=== PATIENT | female | born 1950 | race African-American/Black ===

== ENCOUNTER 2019-11-29 18:06 | Emergency (ER) | payer MEDICARE, SELFPAY ==
--- NOTE | ~2019-11-29 | XR_ITS ---
EXAMINATION: XR chest 2V DATE: 11/29/2019 19:01 INDICATION: Palpitation and feeling flushed. TECHNIQUE: PA and lateral views of the chest were obtained. COMPARISON: Chest radiograph dated 12/06/09 FINDINGS: The lungs remain clear with no focal airspace opacities, pulmonary edema, pleural effusion or pneumot horax. The cardiomediastinal silhouette is normal. Visualized bones and soft tissues are unremarkable . IMPRESSION: 1. No acute cardiopulmonary disease. Reviewed, dictated and finalized at location A. 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
[2019-11-29 18:07] VITALS: BP 152/73; PULSE 94; RESP 16; TEMP 36.4; O2SAT 98
--- NOTE | 2019-11-29 18:12 | ECG_ITS ---
Measurements Intervals [place] Rate: 94 P: 63 TN: 142 QRS: 59 QRSD: 89 T: 58 QT: 348 QTc: 436 Interpretive Statements SINUS RHYTHM BORDERLINE ST-T WAVE ABNORMALITY- DIFFUSE LEADS BASELINE WANDER- I, II, III, AVL, AVF BORDERLINE ECG Electronically Signed On 11-29-2019 19:49:27 SPECIMEN PREPARATION ASSISTANT by Chava Castorena D.O.
[2019-11-29 18:13] VITALS: BP 152/73; PULSE 92; PULSE 93; RESP 19; O2SAT 100
--- NOTE | 2019-11-29 18:17 | ED.ARRPALP ---
HPI - Arrhythmia/Palpitations General Chief Complaint: Arrhythmia/Palpitations Stated Complaint: RAPID HR Time Seen by Provider: 11/29/19 18:08 Source: patient and RN notes reviewed Mode of arrival: EMS Limitations: no limitations History of Present Illness HPI narrative: Pt is a 69 y/o female who presents to the ED with c/o heart palpitations starting this evening. She notes that she was diagnosed with a mild [place] approximately 6 months ago at [facility]. Pt states that she then had an episode of lightheadedness and increased HR while at [employer] several weeks ago. She notes that she was evaluated for these symptoms at [facility], and states that she was admitted for several days due to a mildly elevated troponin. Pt notes that her palpitations resolved after performing a vagal maneuver. She states that she was discharged home with a heart monitor in place. 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 She states that her heart then began racing as she tried cooling down with a cold towel. Pt notes that her whole body felt like it was shaking. According to EMS, the pt was in SVT with a HR of 167 while in route to the ED. They note that her HR decreased back to normal after administering a total of 12 mg of Adenosine. Pt denies any CP, lightheadedness, or diaphoresis currently. complaint: heart racing Onset (ago): hour(s) (1) Time: 17:15 Duration: now resolved Severity: similar to previous episodes Context: other (while making dinner) Arrhythmia history: SVT Associated symptoms: other (lightheadedness (resolved); shakiness (resolved)) Treatments prior to arrival: adenosine Related Data Allergies Allergy/AdvReac Type Severity Reaction Status Date / Time No Known Allergies Allergy Mild Verified 12/09/09 10:59 Review of Systems Review of Systems: All systems reviewed & are unremarkable except as noted in HPI and below Constitutional: Constitutional: Reports other (shakiness (resolved)) Cardiovascular: Cardiovascular: Denies chest pain, Denies diaphoresis and Reports palpitations Neurologic: Reports other (lightheadedness (resolved)) [facility] Past Medical History Medical History HTN (hypertension) Myocardial infarction SVT (supraventricular tachycardia) Surgical History Surgical History Hx of hysterectomy Social History Social History Alcohol intake: never Gender identity (if verbalized by the patient): Female Comments PCP is Dr. Sexton. Exam Narrative: Exam Narrative: GENERAL: Well-appearing, well-nourished, and in no acute distress. HEAD: Normocephalic, atraumatic. ENT: Mucous membranes moist. CHEST: Clear to auscultation. No respiratory distress. External Holter monitor over the left pectoralis. HEART: Regular rate and rhythm. Normal peripheral pulses. ABDOMEN: Soft, nontender, nondistended. EXTREMITIES: Normal range of motion. No edema. SKIN: Warm, dry, no rash. NEURO: Alert and oriented x3. PSYCH: Normal mood and affect. Course Course Emergency Course: Asymptomatic at this time. Discussed treatment plan and patient and daughter verbalized understanding. First dose of metoprolol ER to discharge. Consultations Consultation #1: Discussed case with Dr. Reilly, on-call physician for the pt's PCP, Dr. Sexton. Advised to start the pt on 12.5 mg of Metoprolol BID. They will arrange close follow-up for SVT. Date: 11/29/19 Time: 21:02 Vital Signs Vital signs: Vital Signs Temperature 97.6 F 11/29/19 18:07 Pulse Rate 94 11/29/19 18:07 Respiratory Rate 16 11/29/19 18:07 Blood Pressure 152/73 H 11/29/19 18:07 Pulse Oximetry 98 11/29/19 18:07 Temperature 98.3 F 11/29/19 19:10 Pulse Rate 95 11/29/19 19:10 Respiratory Rate 12 11/29/19 19:10 Blood Pressure 146/75 H 02
[2019-11-29 18:59] LABS: Basophils Absolute Auto 0.1 K/mm3 (0.0-0.1); Basophils Percent Auto 0.7 % (0.2-1.2); Eosinophils Absolute Auto 0.2 K/mm3 (0-0.3); Eosinophils Percent Auto 1.6 % (0-4.4); Hematocrit 42.3 % (37.0-47.0); Hemoglobin 12.7 g/dL (12.0-15.0); Immature Granulocyte Absolute 0.03 K/mm3 (0.00-0.031); Immature Granulocyte Percent A 0.3 % (0-0.5); Lymphocytes Absolute Auto 2.24 K/mm3 (0.9-3.2); Lymphocytes Percent Auto 22.2 % (18.3-44.2); Mean Corpuscular Hemoglobin 27.9 pg (26-34); Monocytes Absolute Auto 0.5 K/mm3 (0.1-0.6); Monocytes Percent Auto 5.3 % (2.6-8.5); Neutrophils Absolute Auto 7.1 K/mm3 (1.3-6.7); Neutrophils Percent Auto 69.9 % (45.5-73.1); Platelet Count Result 369 k/mm3 (150-375); Red Blood Count 4.55 M/mm3 (4.2-5.4); White Blood Count 10.1 K/mm3 (4.5-10.0)
[2019-11-29 19:05] LABS: INR 1.1; Prothrombin Time 13.5 Seconds (11.1-14.7)
[2019-11-29 19:06] LABS: Partial Thromboplastin Time 29.2 SECONDS (22.3-36.8)
[2019-11-29 19:08] LABS: Blood Urea Nitrogen 19 mg/dL (7-17); Calcium 10.1 mg/dL (8.4-10.2); Carbon Dioxide 27 mmol/L (22-30); Chloride 100 mmol/L (98-107); Estimated CRCL calculation 59 ml/min; Estimated Glomerular Filt Rate > 60; Glucose 118 mg/dL (65-105); Potassium 4.1 mmol/L (3.4-5.0); Sodium 138 mmol/L (137-145)
[2019-11-29 19:10] VITALS: BP 146/75; PULSE 95; RESP 12; TEMP 36.8; O2SAT 98
--- NOTE | 2019-11-29 20:14 | PC.NURSE ---
assumed care of pt at this time. report from DIVINE kunz
[2019-11-29 21:25] VITALS: BP 120/90; PULSE 82; RESP 15; O2SAT 100
[2019-11-29 21:29] VITALS: PULSE 80
[2019-11-29] MEDS: METOPROLOL TARTRATE 12.5 MG TABLET PO (21:29)
== END 2019-11-29 21:29 | disposition home or self-care (01) ==
PROVIDERS: Emergency Provider Emergency Medicine
DX: I47.1 Supraventricular tachycardia (principal); I10 Essential (primary) hypertension; I25.2 Old myocardial infarction; R94.31 Abnormal electrocardiogram [ECG] [EKG]
CPT/HCPCS: 36415; 71046; 80048; 84484; 85025; 85610; 85730; 93005; 99284; A9270

== ENCOUNTER 2020-05-03 12:11 | Emergency (ER) | payer MEDICARE, SELFPAY ==
[2020-05-03] VITALS (18 sets, daily range): BP systolic 159–210; BP diastolic 62–93; PULSE 71–95; RESP 12–29; TEMP 36.5; O2SAT 97–100
--- NOTE | ~2020-05-03 | XR_ITS ---
EXAMINATION: XR chest 2V DATE: 05/03/2020 12:48 INDICATION: Shortness of breath. TECHNIQUE: Frontal and lateral views of the chest were obtained. COMPARISON: Chest 2 views 11/29/2019 FINDINGS: The chest demonstrates clear lungs without pneumonia, pleural effusion, or pneumothorax. Th e heart size is normal. IMPRESSION: 1. No acute cardiopulmonary disease. Reviewed, dictated and finalized at location A.
[2020-05-03 12:49] LABS: Basophils Absolute Auto 0.1 K/mm3 (0.0-0.1); Basophils Percent Auto 0.6 % (0.2-1.2); Eosinophils Absolute Auto 0.1 K/mm3 (0-0.3); Eosinophils Percent Auto 0.9 % (0-4.4); Hematocrit 47.1 % (37.0-47.0); Hemoglobin 14.7 g/dL (12.0-15.0); Immature Granulocyte Absolute 0.02 K/mm3 (0.00-0.031); Immature Granulocyte Percent A 0.3 % (0-0.5); Lymphocytes Absolute Auto 1.82 K/mm3 (0.9-3.2); Lymphocytes Percent Auto 23.4 % (18.3-44.2); Mean Corpuscular HGB Conc 31.2 g/dl (32-36); Mean Corpuscular Hemoglobin 29.6 pg (26-34); Mean Corpuscular Volume 94.8 fl (80-100); Mean Platelet Volume 10.2 fl (7.4-10.4); Monocytes Absolute Auto 0.5 K/mm3 (0.1-0.6); Monocytes Percent Auto 6.7 % (2.6-8.5); Neutrophils Absolute Auto 5.3 K/mm3 (1.3-6.7); Neutrophils Percent Auto 68.1 % (45.5-73.1); Platelet Count Result 263 k/mm3 (150-375); Red Blood Count 4.97 M/mm3 (4.2-5.4); Red Cell Distribution Width 12.5 % (11.5-14.5); White Blood Count 7.8 K/mm3 (4.5-10.0)
--- NOTE | 2020-05-03 12:57 | ECG_ITS ---
Measurements Intervals [place] Rate: 84 P: 58 TX: 158 QRS: 72 QRSD: 89 T: 172 QT: 401 QTc: 476 Interpretive Statements SINUS RHYTHM POSSIBLE RIGHT ATRIAL ENLARGEMENT T WAVE ABNORMALITY IN ANTEROLATERAL LEADS- CONSIDER ISCHEMIA ABNORMAL ECG Electronically Signed On 05-03-2020 15:25:42 CDT by Chava Castorena D.O.
--- NOTE | 2020-05-03 12:58 | ECG_ITS ---
Measurements Intervals [place] Rate: 80 P: 59 MI: 160 QRS: 53 QRSD: 99 T: 75 QT: 402 QTc: 466 Interpretive Statements SINUS RHYTHM POSSIBLE RIGHT ATRIAL ENLARGEMENT ST-T WAVE ABNORMALITY IN LATERAL LEADS- CONSIDER ISCHEMIA BASELINE ARTIFACT- I, II, III ABNORMAL ECG Electronically Signed On 05-03-2020 15:26:12 CDT by Chava Castorena D.O.
[2020-05-03 12:59] LABS: INR 1.1; Prothrombin Time 14.2 Seconds (11.1-14.7)
[2020-05-03 13:01] LABS: Blood Urea Nitrogen 16 mg/dL (7-17); Calcium 9.6 mg/dL (8.4-10.2); Carbon Dioxide 28 mmol/L (22-30); Chloride 102 mmol/L (98-107); Estimated CRCL calculation 46 ml/min; Estimated Glomerular Filt Rate > 60; Glucose 100 mg/dL (65-105); Potassium 3.9 mmol/L (3.4-5.0); Sodium 138 mmol/L (137-145)
[2020-05-03 13:15] LABS: Troponin I 0.046 ng/mL (0.000-0.034)
--- NOTE | 2020-05-03 13:46 | ED.WEAKNESS ---
HPI - Weakness General Chief complaint: Weakness Stated complaint: Weakness Time Seen by Provider: 05/03/20 12:13 History of Present Illness HPI Narrative: Patient is a 70-year-old female who presents ER with sudden onset weakness and feeling jittery. Patient states she was at rest when she became very weak and sweaty and felt like her body was shaking. Symptoms lasted for about 30 minutes. She had called the paramedics to come help her. While in the ambulance it was noted patient's heart rate was 170 bpm. Appearance of SVT. Patient converted spontaneously in the ambulance. Upon arrival here patient was symptom-free. She reports compliance with her metoprolol 25 mg twice daily. Related Data Home Medications Medication Instructions Recorded Confirmed amlodipine 05/03/20 aspirin 05/03/20 lisinopril 05/03/20 metoprolol tartrate 25 mg PO BID 05/03/20 Allergies Allergy/AdvReac Type Severity Reaction Status Date / Time No Known Allergies Allergy Mild Verified 05/03/20 12:22 Review of Systems Review of Systems: All systems reviewed & are unremarkable except as noted in HPI and below Constitutional: Constitutional: Denies chills, Denies fever(s) and Reports weakness ENT: Denies nasal congestion and Denies sore throat Cardiovascular: Cardiovascular: Reports chest pain (Jittery/palpitations), Reports rapid heart rate and Denies radiating jaw, neck or arm pain Respiratory: Respiratory: Denies cough, Denies dyspnea and Denies wheezing Gastrointestinal: Gastrointestinal: Denies abdominal pain, Denies diarrhea, Denies nausea and Denies vomiting Musculoskeletal: Musculoskeletal: Denies back pain and Denies muscle cramps PMFSH Social History Social History Alcohol intake: never Gender identity (if verbalized by the patient): Female Exam Narrative: Exam Narrative: GENERAL: Well-appearing, well-nourished, and in no acute distress. HEAD: Normocephalic, atraumatic. ENT: Mucous membranes moist. CHEST: Clear to auscultation. No respiratory distress. HEART: Regular rate and rhythm. Normal peripheral pulses. ABDOMEN: Soft, nontender, nondistended. EXTREMITIES: Normal range of motion. No edema. SKIN: Warm, dry, no rash. NEURO: Alert and oriented x3. Course Reevaluation(s) Reevaluation #1: Patient resting comfortably. Informed of results including elevated troponin. Discussed with Dr. Feldman that I would like to observe the patient in the hospital with him is consulting given the fact that her blood pressures have been in the 190s systolic despite her taking multiple anti-hypertensive medications, she has had SVT despite taking with 25 mg twice daily, and her troponin is elevated. She does report that she had a negative heart cath a year ago when she had an [place]. Date: 05/03/20 Time: 14:41 Reevaluation #2: Discussed admission with the patient. She would actually like to be transferred to [facility] where Dr. Escoto engineer remote control diesel is located. Reports she did not same thing earlier because she did not know what are specific procedures were. Also briefly discussed patient's condition with her daughter who is upset that the patient's blood pressure was quite elevated and she did notice by her mom telling her that her blood pressure was in fact stable. Patient's daughter would not let me get a word in and talk about poor care that her father is received [facility]. I then hung up the phone and let the patient know that I had a negative interaction with her daughter. Patient states she is happy with her care at this time. We will attempt to arrange transfer to [facility]. Date: 05/03/20 Time: 15:10 Reevaluation #3: Discussed case with Dr. Martin at [facility]. He is excepted the patient for transfer. Recommends discontinuation of heparin given the patient's lack of chest pain. Patient aware of treatment plan. Awaiting a bed and transport. Date: 05/03/20 Time: 16:43 Additional Reevalu
--- NOTE | 2020-05-03 15:37 | PC.NURSE ---
Patient's family member arrived to take patient's keys home.
[2020-05-03] MEDS: METOPROLOL TARTRATE INJ 5 MG/5 ML VIAL IV PUSH (15:53)
[2020-05-03 16:08] LABS: Troponin I 0.582 ng/mL (0.000-0.034)
[2020-05-03] MEDS: HEPARIN SODIUM 5,000 UNITS/ML VIAL 3500 UNITS IV PUSH (16:21)
[2020-05-03] MEDS: HEPARIN SOD/D5W 100 UNITS/ML 25,000 UNITS/250 ML BAG 7 UNITS IV CONT (16:31)
--- NOTE | 2020-05-03 16:51 | PC.NURSE ---
Verbal order received to stop heparin drip per Dr. Santana. States spoke with at [place] and this was their request.
[2020-05-03] MEDS: NITROGLYCERIN OINTMENT 1 INCH DOSE 0.5 INCH TRANSDERM (18:14)
--- NOTE | 2020-05-03 18:20 | PC.NURSE ---
Patient accepted at [facility] at this time, room number 9225-1, phone number [phone]. Room given per access line [facility] at [facility].
[2020-05-03 19:09] LABS: Troponin I 0.984 ng/mL (0.000-0.034)
[2020-05-03] MEDS: hydrALAZINE HCL 20 MG/ML VIAL 10 MG IV PUSH (19:44)
--- NOTE | 2020-05-03 21:02 | PC.NURSE ---
CALLED [facility] FOR ETA STATUS ... APPROXIMATELY 22:30
== END 2020-05-03 23:31 | disposition short-term general hospital (02) ==
PROVIDERS: Emergency Provider Emergency Medicine
DX: I21.4 Non-ST elevation (NSTEMI) myocardial infarction (principal); I47.1 Supraventricular tachycardia; I10 Essential (primary) hypertension
CPT/HCPCS: 36415; 71046; 80048; 84484; 85025; 85610; 85730; 93005; 96365; 96375; 99291; A9270; J0360; J1644

== ENCOUNTER 2022-01-08 09:41 | Outpatient (CLI) | payer MEDICARE, SELFPAY ==
--- NOTE | ~2022-01-08 | XR_ITS ---
EXAMINATION: XR hip LT min 2V DATE: 01/08/2022 10:05 INDICATION: Left hip pain. TECHNIQUE: 2 views of left hip were obtained. COMPARISON: None. FINDINGS: Bone alignment is normal. No fracture. There is mild left hip osteoarthritis characterized by tiny osteophytes. IMPRESSION: 1. Mild left hip osteoarthritis. Reviewed, dictated and finalized at location A.
--- NOTE | ~2022-01-08 | XR_ITS ---
XR lumbar spine 2-3V DATE: 01/08/2022 10:05 INDICATION: Chronic bilateral lower back pain, bilateral sciatica TECHNIQUE: AP, lateral, coned lateral lumbosacral views COMPARISON: None FINDINGS: There is diffuse osteopenia. There is mild dextro scoliosis of the thoracolumbar spine. There is mild degenerative spurring. Lumbar and lumbosacral interspaces are relatively preserved. No fracture or bone destruction or spondylolisthesis. The sacroiliac joints are intact. IMPRESSION: Osteopenia Mild degenerative change Reviewed, dictated and finalized at location A.
== END 2022-01-08 09:42 ==
PROVIDERS: PCP Internal Medicine; Visit Provider Internal Medicine
DX: M54.42 Lumbago with sciatica, left side (principal); M54.41 Lumbago with sciatica, right side; G89.29 Other chronic pain; M85.88 Other specified disorders of bone density and structure, other site; M51.36 Other intervertebral disc degeneration, lumbar region
CPT/HCPCS: 72100; 73502

== ENCOUNTER 2022-03-17 10:06 | Outpatient (CLI) | payer MEDICARE, SELFPAY ==
--- NOTE | ~2022-03-17 | US_ITS ---
US pelvic complete w TV 03/17/2022 10:31 Indication: Pelvic pain. Procedure: High-resolution ultrasound of the pelvis using transabdominal and transvaginal technique Comparison: No prior studies for comparison. Findings: Uterus is surgically absent. The ovaries are not visualized. No pelvic masses or fluid gregory ections are seen. No free fluid. Impression: 1: Unremarkable pelvic ultrasound post hysterectomy. Reviewed, dictated and finalized at location A. Impression: 1: Unremarkable pelvic ultrasound post hysterectomy.
== END 2022-03-17 10:07 ==
PROVIDERS: PCP Internal Medicine; Visit Provider Internal Medicine
DX: R10.2 Pelvic and perineal pain (principal)
CPT/HCPCS: 76830; 76856

== ENCOUNTER 2022-05-24 17:47 | Emergency (ER) | payer MEDICARE, SELFPAY ==
[2022-05-24] VITALS (7 sets, daily range): BP systolic 135–156; BP diastolic 69–75; PULSE 87–93; RESP 13–20; TEMP 36.9; O2SAT 97–100
--- NOTE | ~2022-05-24 | XR_ITS ---
EXAMINATION: XR chest 2V Exam Date/Time: 05/24/2022 17:54 CDT HISTORY: svt; hx of HTN Comparison: 05/03/2020. RESULT: Lines, tubes, and devices: None. Lungs and pleura: Senescent change, otherwise clear. Cardiomediastinal silhouette: Stable. Central pulmonary artery dilation as can be seen with pulmonar y arterial hypertension. Other: No acute osseous or upper abdominal finding. IMPRESSION: No acute cardiopulmonary process. Reviewed, dictated and finalized at location K.
--- NOTE | 2022-05-24 17:52 | ECG_ITS ---
Measurements Intervals [place] Rate: 84 P: 48 [place]: 160 QRS: 60 QRSD: 93 T: 17 QT: 384 QTc: 455 Interpretive Statements SINUS RHYTHM T-WAVE ABNORMALITY, CONSIDER ISCHEMIA Electronically Signed On 05-25-2022 11:36:48 CDT by Brice Sandoval M.D.
[2022-05-24 18:19] LABS: Basophils Absolute Auto 0.1 K/mm3 (0.0-0.1); Basophils Percent Auto 0.7 % (0.2-1.2); Eosinophils Absolute Auto 0.3 K/mm3 (0-0.3); Eosinophils Percent Auto 2.7 % (0-4.4); Hematocrit 42.3 % (37.0-47.0); Hemoglobin 12.9 g/dL (12.0-15.0); Immature Granulocyte Absolute 0.02 K/mm3 (0.00-0.031); Immature Granulocyte Percent A 0.2 % (0-0.5); Lymphocytes Absolute Auto 2.81 K/mm3 (0.9-3.2); Lymphocytes Percent Auto 28.9 % (18.3-44.2); Mean Corpuscular HGB Conc 30.5 g/dl (32-36); Mean Corpuscular Hemoglobin 28.2 pg (26-34); Mean Corpuscular Volume 92.6 fl (80-100); Mean Platelet Volume 9.4 fl (7.4-10.4); Monocytes Absolute Auto 0.7 K/mm3 (0.1-0.6); Monocytes Percent Auto 7.2 % (2.6-8.5); Neutrophils Absolute Auto 5.9 K/mm3 (1.3-6.7); Neutrophils Percent Auto 60.3 % (45.5-73.1); Platelet Count Result 383 k/mm3 (150-375); Red Blood Count 4.57 M/mm3 (4.2-5.4); Red Cell Distribution Width 11.9 % (11.5-14.5); White Blood Count 9.7 K/mm3 (4.5-10.0)
--- NOTE | 2022-05-24 18:21 | ED.ARRPALP ---
HPI - Arrhythmia/Palpitations General Chief Complaint: Arrhythmia/Palpitations Stated Complaint: SVT, HYPOTENSIVE Time Seen by Provider: 05/24/22 17:52 Source: patient, EMS and RN notes reviewed Mode of arrival: EMS Limitations: no limitations History of Present Illness HPI narrative: Patient reports that she was eating spicy food suddenly felt like she cannot throw up, got up to go to the bathroom, then felt like she is going to pass out, and was diaphoretic. EMT arrived, monitor showed SVT, patient was asked to hold her breath and bear down, then converted to normal sinus rhythm on arrival to the emergency room. EMT EKG showed SVT at 162 bpm. EKG on arrival to the emergency room showed normal sinus rhythm at 84 bpm, Related Data Home Medications Medication Instructions Recorded Confirmed amlodipine 10 mg tablet 05/03/20 aspirin 81 mg tablet,delayed 05/03/20 release lisinopril 40 mg tablet 05/03/20 Allergies Allergy/AdvReac Type Severity Reaction Status Date / Time No Known Allergies Allergy Mild Verified 05/03/20 12:22 Review of Systems Review of Systems: All systems reviewed & are unremarkable except as noted in HPI and below PMFSH Past Medical History Medical History (Updated 05/24/22 @ 18:53 by Luis Grayson MD) HTN (hypertension) Myocardial infarction SVT (supraventricular tachycardia) Surgical History Surgical History Hx of hysterectomy Social History Social History Alcohol intake: never Gender identity (if verbalized by the patient): Female Exam Narrative: General appearance: Well-developed, well-nourished Skin: Normal color Head: Normocephalic, nontraumatic Eyes: Clear conjunctiva ENT: Oropharynx normal, ears normal, nose normal Neck: Supple, nontender Chest and respiratory: Airway patent, no respiratory distress, no accessory muscle use Heart: Regular rate/rhythm, ejection systolic murmur Abdomen: Soft, nontender, no organomegaly, quiet bowel sounds Vascular: Normal peripheral pulses, normal capillary refill. Musculoskeletal: Normal range of motion, nontender back Neurologic: Alert and oriented ?3, CREAM GATHERER is normal as tested, no gross motor deficit Course Course Emergency Course: Patient presents with paroxysmal SVT, converted normal sinus rhythm on arrival to the emergency room. Physical examination showed cardiac murmur, patient was about to blackout at home, admission will be appropriate at this time to be placed on calcium channel triston or beta-triston medication to avoid another attack of SVT. Patient currently is asymptomatic. Vital Signs Vital signs: Vital Signs Temperature 36.9 C 05/24/22 17:50 Pulse Rate 87 05/24/22 17:50 Respiratory Rate 16 05/24/22 17:50 Blood Pressure 156/71 H 05/24/22 17:50 Pulse Oximetry 99 05/24/22 17:50 Oxygen Delivery Room Air 05/24/22 17:50 Temperature 36.9 C 05/24/22 17:50 Pulse Rate 93 05/24/22 18:32 Respiratory Rate 17 05/24/22 18:32 Blood Pressure 146/75 H 05/24/22 18:32 Pulse Oximetry 100 05/24/22 18:32 Oxygen Delivery Room Air 05/24/22 17:50 MDM - Arrhythmia/Palpitations Differential Diagnosis Differential diagnosis: Likely supraventricular tachycardia Lab Data Result diagrams: 05/24/22 18:12 05/24/22 18:12 Labs: Lab Results 05/24/22 05/24/22 05/24/22 Range/Units 18:12 18:12 18:12 WBC 9.7 (4.5-10.0)
[2022-05-24 18:28] LABS: Alanine Aminotransferase 29 U/L (6-35); Albumin Level 4.8 g/dL (3.5-5.1); Alkaline Phosphatase 105 U/L (38-126); Anion Gap 11 mmol/L (8-16); Aspartate Amino Transferase 36 U/L (14-36); Bilirubin,Total 0.3 mg/dL (0.2-1.3); Blood Urea Nitrogen 11 mg/dL (7-17); Calcium 9.6 mg/dL (8.4-10.2); Carbon Dioxide 27 mmol/L (22-30); Chloride 101 mmol/L (98-107); Estimated CRCL calculation 57 ml/min; Estimated Glomerular Filt Rate > 60; Glucose 126 mg/dL (65-110); Lipase 148 U/L (23-300); Potassium 3.8 mmol/L (3.4-5.0); Sodium 139 mmol/L (137-145)
[2022-05-24 18:30] LABS: INR 1.1; Partial Thromboplastin Time 26.6 SECONDS (22.3-36.8); Prothrombin Time 13.6 Seconds (11.1-14.7)
[2022-05-24 18:40] LABS: Troponin I 0.024 ng/mL (0.000-0.034)
[2022-05-24 19:12] LABS: Amphetamine Screen Urine Negative (Negative); Barbiturate Screen Urine Negative (Negative); Benzodiazepines Screen Urine Negative (Negative); Cannabinoid Screen Urine Negative (Negative); Cocaine Screen Urine Negative (Negative); Methadone Screen Urine Negative (Negative); Opiate Screen Urine Negative (Negative); Phencyclidine Screen Urine Negative (Negative)
[2022-05-24 19:17] LABS: NT Pro B Type Natriuretic Pept 100 pg/mL (5-100)
== END 2022-05-25 07:19 | disposition left against medical advice (07) ==
PROVIDERS: Emergency Provider Emergency Medicine; PCP Internal Medicine
DX: I47.1 Supraventricular tachycardia (principal); I10 Essential (primary) hypertension; I25.2 Old myocardial infarction; Z90.710 Acquired absence of both cervix and uterus; R94.31 Abnormal electrocardiogram [ECG] [EKG]
CPT/HCPCS: 36415; 71046; 80053; 80307; 83690; 83880; 84443; 84484; 85025; 85610; 85730; 93005; 99284

== ENCOUNTER 2022-07-23 17:09 | Emergency (ER) | payer MEDICARE, SELFPAY ==
[2022-07-23 17:31] VITALS: BP 160/82; PULSE 85; RESP 19; O2SAT 100
[2022-07-23 17:34] VITALS: PULSE 85
--- NOTE | 2022-07-23 17:53 | ED.ARRPALP ---
HPI - Arrhythmia/Palpitations General Chief Complaint: Arrhythmia/Palpitations Stated Complaint: sick/weak Time Seen by Provider: 07/23/22 17:53 Source: patient Mode of arrival: EMS Limitations: no limitations History of Present Illness HPI narrative: Patient 72 years old -[place] female was sitting talking to her daughter suddenly developed hot feeling with diaphoresis, feeling dizzy this palpitation. Later called 911, ENT asked to the patient to bear down with immediate relief. Patient had a bit numerous similar symptoms in the past, currently on Lopressor 25 mg twice a day. Currently patient is asymptomatic and would like to eat. She denies any fever, chills, nausea, vomiting, chest pain, shortness of breath, headache, back pain. Patient declined any blood work-up or any further evaluation. She is telling me that she is planning to see her hand mixer next week at [facility] for possible cardiac ablation Related Data Home Medications Medication Instructions Recorded Confirmed amlodipine 10 mg tablet 05/03/20 aspirin 81 mg tablet,delayed 05/03/20 release atorvastatin 80 mg tablet mg 07/23/22 cyclobenzaprine 5 mg tablet mg 07/23/22 lisinopril 20 tablet 07/23/22 mg-hydrochlorothiazide 12.5 mg tablet metoprolol succinate 25 mg 25 mg PO DAILY 07/23/22 tablet,extended release 24 hr Allergies Allergy/AdvReac Type Severity Reaction Status Date / Time No Known Allergies Allergy Mild Verified 07/23/22 17:35 Review of Systems Review of Systems: All systems reviewed & are unremarkable except as noted in HPI and below PMFSH Past Medical History Medical History (Updated 07/23/22 @ 18:26 by Luis Grayson MD) HTN (hypertension) Myocardial infarction SVT (supraventricular tachycardia) Surgical History Surgical History Hx of hysterectomy Social History Social History Alcohol intake: never Gender identity (if verbalized by the patient): Female Exam Narrative: General appearance: Well-developed, well-nourished Skin: Normal color Head: Normocephalic, nontraumatic Eyes: Clear conjunctiva ENT: Oropharynx normal, ears normal, nose normal Neck: Supple, nontender Chest and respiratory: Airway patent, no respiratory distress, no accessory muscle use Heart: Regular rate/rhythm Abdomen: Soft, nontender, no organomegaly, quiet bowel sounds Vascular: Normal peripheral pulses, normal capillary refill. Musculoskeletal: Normal range of motion, nontender back Neurologic: Alert and oriented ?3, STEAM BOX HAND is normal as tested, no gross motor deficit Course Course Emergency Course: Patient had similar symptoms of paroxysmal tachycardia of unknown name. Currently on Lopressor 25 mg once a day. My plan to increase the dose to 25 mg every 12 hours until she sees her hand mixer next week. Patient declined any blood work-up or any further evaluation. And would like to go home. Vital Signs Vital signs: Vital Signs Pulse Rate 85 07/23/22 17:31 Respiratory Rate 19 07/23/22 17:31 Blood Pressure 160/82 H 07/23/22 17:31 Pulse Oximetry 100 07/23/22 17:31 Pulse Rate 85 07/23/22 17:34 Respiratory Rate 19 07/23/22 17:31 Blood Pressure 160/82 H 07/23/22 17:31 Pulse Oximetry 100 07/23/22 17:31 MDM - Arrhythmia/Palpitations Differential Diagnosis Differential diagnosis: Likely artial fibrillation, supraventricular tachycardia and ventricular tachycardia Discharge Plan Discharge Clinical Impression: Palpitations Patient Disposition: Home, Self-Care Condition: Improved Inst
[2022-07-23 18:35] VITALS: BP 140/97; PULSE 90; RESP 20; O2SAT 100
== END 2022-07-23 18:36 | disposition home or self-care (01) ==
PROVIDERS: Emergency Provider Emergency Medicine
DX: R00.2 Palpitations (principal); I10 Essential (primary) hypertension; I25.2 Old myocardial infarction; I47.1 Supraventricular tachycardia; Z79.82 Long term (current) use of aspirin
CPT/HCPCS: 99284

== ENCOUNTER 2023-07-11 12:26 | Emergency (ER) | payer MEDICARE, SELFPAY ==
[2023-07-11] VITALS (21 sets, daily range): BP systolic 129–184; BP diastolic 69–91; PULSE 90–106; RESP 14–21; TEMP 36.7; O2SAT 95–100
--- NOTE | ~2023-07-11 | XR_ITS ---
EXAMINATION: XR chest 1V portable INDICATION: Lightheaded, SVT TECHNIQUE: Portable AP chest at 1517 hours COMPARISON: 05/24/2022 FINDINGS: The lungs are free of acute opacities. No pleural effusion or pneumothorax. The cardiomedia stinal silhouette is normal. IMPRESSION: 1. No acute cardiopulmonary abnormality. Reviewed, dictated and finalized at location B.
--- NOTE | 2023-07-11 12:42 | ECG_ITS ---
Measurements Intervals [place] Rate: 94 P: 43 [place]: 151 QRS: 61 QRSD: 106 T: -32 QT: 363 QTc: 455 Interpretive Statements SINUS RHYTHM POSSIBLE LEFT ATRIAL ENLARGEMENT ST-T WAVE ABNORMALITY IN LATERAL LEADS- CONSIDER ISCHEMIA BASELINE ARTIFACT- I, II, III, AVR, AVL, AVF, V1-V2 ABNORMAL ECG COMPARED TO ECG 05/24/2022 17:57:47 ST-T WAVE ABNORMALITY NOW PRESENT Electronically Signed On 07-11-2023 12:53:09 CDT by Chava Castorena D.O.
[2023-07-11 12:58] LABS: Basophils Percent Auto 0.5 % (0.2-1.2); Eosinophils Absolute Auto 0.1 K/mm3 (0-0.3); Eosinophils Percent Auto 0.7 % (0-4.4); Hematocrit 42.7 % (37.0-47.0); Immature Granulocyte Absolute 0.02 K/mm3 (0.00-0.031); Immature Granulocyte Percent A 0.2 % (0-0.5); Lymphocytes Absolute Auto 2.01 K/mm3 (0.9-3.2); Lymphocytes Percent Auto 24.5 % (18.3-44.2); Mean Corpuscular HGB Conc 30.4 g/dl (32-36); Mean Corpuscular Hemoglobin 28.4 pg (26-34); Mean Corpuscular Volume 93.2 fl (80-100); Mean Platelet Volume 9.4 fl (7.4-10.4); Monocytes Absolute Auto 0.4 K/mm3 (0.1-0.6); Monocytes Percent Auto 4.9 % (2.6-8.5); Neutrophils Absolute Auto 5.7 K/mm3 (1.3-6.7); Neutrophils Percent Auto 69.2 % (45.5-73.1); Platelet Count Result 316 k/mm3 (150-375); Red Blood Count 4.58 M/mm3 (4.2-5.4); Red Cell Distribution Width 11.9 % (11.5-14.5); White Blood Count 8.2 K/mm3 (4.5-10.0)
[2023-07-11 13:09] LABS: Alanine Aminotransferase 40 U/L (6-35); Albumin Level 4.4 g/dL (3.5-5.1); Alkaline Phosphatase 96 U/L (38-126); Anion Gap 8 mmol/L (8-16); Aspartate Amino Transferase 45 U/L (14-36); Bilirubin,Total 0.6 mg/dL (0.2-1.3); Blood Urea Nitrogen 14 mg/dL (7-17); Calcium 9.4 mg/dL (8.4-10.2); Carbon Dioxide 28 mmol/L (22-30); Chloride 100 mmol/L (98-107); Estimated CRCL calculation 49 ml/min; Estimated Glomerular Filt Rate > 60; Glucose 158 mg/dL (65-110); Lipase 132 U/L (23-300); Potassium 3.5 mmol/L (3.4-5.0); Sodium 136 mmol/L (137-145)
[2023-07-11 13:47] LABS: Appearance Urine Clear (Clear); Bacteria Urine None Seen /hpf; Bilirubin Urine Negative (Negative); Blood Urine Negative (Negative); Color Urine Yellow (Yellow); Glucose Urine UA Negative (Negative); Ketones Urine Negative (Negative); Leukocyte Esterase Ur 2+ LEU/UL (Negative); Nitrate Urine Negative (Negative); Protein Urine 1+ mg/dL (Negative); RBC Urine 0-2 /hpf (0-2); Specific Grav Ur 1.012 (1.001-1.035); Squamous Epithelial Cell Urine Occasional /hpf (Few); Urobilinogen Urine 0.2 mg/dL (<2.0)
[2023-07-11 13:52] LABS: Add Urine Microscopic? YES
--- NOTE | 2023-07-11 15:04 | ED.GENADULT ---
HPI - General Adult General Chief complaint: Nausea/Vomiting/Diarrhea Stated complaint: n/v, high heart rate Time Seen by Provider: 07/11/23 13:59 History of Present Illness HPI narrative: Patient is a 73-year-old female with a history of hypertension, SVT presenting with a high heart rate. Patient states that sometimes she will have episodes where her heart rate gets really fast. States that this happened today while she was eating. She could feel it fluttering. Denies any chest pain or shortness of breath. States that she did feel a bit lightheaded, sweaty, nauseated. EMS was called and insisted that she come in for evaluation. Patient is asking to go home and states that she feels completely back to baseline. She denies any complaints at this time. Related Data Home Medications Medication Instructions Recorded Confirmed amlodipine 10 mg tablet 05/03/20 aspirin 81 mg tablet,delayed 05/03/20 release atorvastatin 80 mg tablet mg 07/23/22 cyclobenzaprine 5 mg tablet mg 07/23/22 lisinopril 20 tablet 07/23/22 mg-hydrochlorothiazide 12.5 mg tablet metoprolol succinate 25 mg 25 mg PO DAILY 07/23/22 tablet,extended release 24 hr Allergies Allergy/AdvReac Type Severity Reaction Status Date / Time No Known Allergies Allergy Mild Verified 07/23/22 17:35 Review of Systems Review of Systems: All systems reviewed & are unremarkable except as noted in HPI and below PMFSH Past Medical History Medical History (Updated 07/12/23 @ 00:00 by Background Daemon) HTN (hypertension) Myocardial infarction SVT (supraventricular tachycardia) Surgical History Surgical History Hx of hysterectomy Social History Social History Alcohol intake: never Gender identity (if verbalized by the patient): Female Exam Narrative: GENERAL: Well-appearing and in no acute distress. Very pleasant and cooperative HEAD: Normocephalic, atraumatic. EYES: PERRLA and EOMI. ENT: Mucous membranes moist. NECK: Supple. CHEST: Clear to auscultation. No respiratory distress. HEART: Regular rate and rhythm. Normal peripheral pulses. ABDOMEN: Soft, nontender, nondistended EXTREMITIES: Normal range of motion. No edema. SKIN: Warm, dry, no rash. NEURO: No focal deficits. Alert and oriented x3. PSYCH: Normal mood and affect. Course Vital Signs Vital signs: Vital Signs Temperature 98.1 F 07/11/23 12:43 Pulse Rate 94 07/11/23 12:43 Respiratory Rate 18 07/11/23 12:43 Blood Pressure 129/72 07/11/23 12:43 Pulse Oximetry 100 07/11/23 12:43 Oxygen Delivery Room Air 07/11/23 12:43 Temperature 98.1 F 07/11/23 12:43 Pulse Rate 92 07/11/23 16:16 Respiratory Rate 17 07/11/23 16:16 Blood Pressure 184/87 H 07/11/23 16:51 Pulse Oximetry 100 07/11/23 16:16 Oxygen Delivery Room Air 07/11/23 12:43 Medical Decision Making MDM Narrative Medical decision making narrative: Patient is a 73-year-old female presenting with an episode of tachycardia. For EMS, her heart rate was in the 160s. They had her perform vagal maneuvers which resolved the tachycardia. She does have a history of SVT. She denies any concerning symptoms such as chest pain, shortness of breath. States that she feels completely back to baseline. We will check blood work, EKG, chest x-ray and give some fluids. EKG per my interpretation shows normal sinus rhythm, normal axis and intervals, no ST elevations or depressions. Nonspecific T wave changes which have seen on previous EKGs. Chest x-ray without acute abnormalities. Blood work is unremarkable. Troponin within normal limits. UA with UTI. On reevaluation, the patient denies complaints. She is tolerating p.o. intake. She is asking to go home which I think is reasonable. Suspect she likely had an episode of SVT of which she does have a history. Advise
[2023-07-11] MEDS: SODIUM CHLORIDE 0.9% IV 1,000 ML 999 ML IV CONT (15:23)
[2023-07-11 15:25] LABS: Magnesium 2.2 mg/dL (1.6-2.3)
[2023-07-11 15:36] LABS: Troponin I 0.015 ng/mL (0.000-0.034)
== END 2023-07-11 16:52 | disposition home or self-care (01) ==
PROVIDERS: Emergency Provider Emergency Medicine
DX: R00.2 Palpitations (principal); N39.0 Urinary tract infection, site not specified; I10 Essential (primary) hypertension; I25.2 Old myocardial infarction; Z90.710 Acquired absence of both cervix and uterus; R94.31 Abnormal electrocardiogram [ECG] [EKG]
CPT/HCPCS: 36415; 71045; 80053; 81001; 83690; 83735; 84100; 84484; 85025; 87086; 93005; 96360; 99284; J7030

== ENCOUNTER 2024-03-16 10:47 | Emergency (ER) | payer MEDICARE, SELFPAY ==
[2024-03-16] VITALS (7 sets, daily range): BP systolic 126–167; BP diastolic 71–87; PULSE 78–88; RESP 14–18; TEMP 36.8; O2SAT 96–100
--- NOTE | ~2024-03-16 | XR_ITS ---
Clinical Indication: SVT PA and lateral views of the chest: Comparison: 07/11/2023 Findings: The lungs are clear, without evidence of focal consolidation or pleural effusion. Cardiome diastinal silhouette is within normal limits. Bones and soft tissues are unremarkable. Impression: Normal chest. Reviewed, dictated and finalized at location . Impression: Normal chest.
--- NOTE | 2024-03-16 10:53 | ECG_ITS ---
SEE SCANNED COPY FOR CONFIRMED REPORT MTDD
[2024-03-16 11:12] LABS: Basophils Absolute Auto 0.1 K/mm3 (0.0-0.1); Basophils Percent Auto 0.6 % (0.2-1.2); Eosinophils Absolute Auto 0.1 K/mm3 (0-0.3); Eosinophils Percent Auto 0.9 % (0-4.4); Hemoglobin 14.6 g/dL (12.0-15.0); Immature Granulocyte Absolute 0.03 K/mm3 (0.00-0.031); Immature Granulocyte Percent A 0.4 % (0-0.5); Lymphocytes Absolute Auto 1.72 K/mm3 (0.9-3.2); Lymphocytes Percent Auto 21.9 % (18.3-44.2); Mean Corpuscular HGB Conc 30.4 g/dl (32-36); Mean Corpuscular Hemoglobin 28.2 pg (26-34); Mean Corpuscular Volume 92.8 fl (80-100); Mean Platelet Volume 9.4 fl (7.4-10.4); Monocytes Absolute Auto 0.5 K/mm3 (0.1-0.6); Monocytes Percent Auto 6.6 % (2.6-8.5); Neutrophils Absolute Auto 5.5 K/mm3 (1.3-6.7); Neutrophils Percent Auto 69.6 % (45.5-73.1); Platelet Count Result 334 k/mm3 (150-375); Red Blood Count 5.17 M/mm3 (4.2-5.4); Red Cell Distribution Width 13.1 % (11.5-14.5); White Blood Count 7.9 K/mm3 (4.5-10.0)
[2024-03-16 11:22] LABS: Alanine Aminotransferase 29 U/L (6-35); Albumin Level 4.6 g/dL (3.5-5.1); Alkaline Phosphatase 92 U/L (38-126); Anion Gap 10 mmol/L (4-12); Aspartate Amino Transferase 37 U/L (14-36); Bilirubin,Total 0.7 mg/dL (0.2-1.3); Blood Urea Nitrogen 15 mg/dL (7-17); Calcium 9.5 mg/dL (8.4-10.2); Carbon Dioxide 24 mmol/L (22-30); Chloride 105 mmol/L (98-107); Estimated CRCL calculation 51 ml/min; Estimated Glomerular Filt Rate > 60; Glucose 101 mg/dL (65-110); Sodium 139 mmol/L (137-145)
[2024-03-16 11:25] LABS: Prothrombin Time 13.8 Seconds (11.1-14.7)
[2024-03-16 11:39] LABS: NT Pro B Type Natriuretic Pept 1080 pg/mL (19.9-100); Troponin I 0.488 ng/mL (0.000-0.034)
[2024-03-16] MEDS: METOPROLOL SUCCINATE EXT REL 25 MG TABCR PO (12:57)
--- NOTE | 2024-03-16 14:07 | ECG_ITS ---
SEE SCANNED COPY FOR CONFIRMED REPORT MTDD
[2024-03-16 14:41] LABS: Troponin I 0.453 ng/mL (0.000-0.034)
--- NOTE | 2024-03-16 14:49 | ED.GENADULT ---
HPI - General Adult General Chief complaint: Weakness Stated complaint: sick Time Seen by Provider: 03/16/24 11:42 Source: patient Mode of arrival: EMS Limitations: no limitations History of Present Illness HPI narrative: 73-year-old with a history of hypertension, PSVT, CAD here with a complaint of sudden onset of weakness near passing out spell. Patient states that she was dizzy yesterday however symptoms resolved again happened this morning. Move any EMS was at home she was in SVT she was given 2 rounds of Related Data Home Medications Medication Instructions Recorded Confirmed amlodipine 10 mg tablet 05/03/20 aspirin 81 mg tablet,delayed 05/03/20 release atorvastatin 80 mg tablet mg 07/23/22 cyclobenzaprine 5 mg tablet mg 07/23/22 lisinopril 20 tablet 07/23/22 mg-hydrochlorothiazide 12.5 mg tablet metoprolol succinate 25 mg 25 mg PO DAILY 07/23/22 tablet,extended release 24 hr Allergies Allergy/AdvReac Type Severity Reaction Status Date / Time No Known Allergies Allergy Mild Verified 07/23/22 17:35 Review of Systems Review of Systems: All systems reviewed & are unremarkable except as noted in HPI and below Constitutional: Constitutional: Reports no additional constitutional complaints Eyes: Eyes: Reports no additional eye complaints ENT: Reports system reviewed and no additional complaints, except as documented Cardiovascular: Cardiovascular: Reports as per HPI Respiratory: Respiratory: Reports no additional respiratory complaints Gastrointestinal: Gastrointestinal: Reports no additional gastrointestinal complaints Musculoskeletal: Musculoskeletal: Reports no additional musculoskeletal complaints Integumentary/Breasts: Skin/Breast: Reports system reviewed and no additional complaints, except as docu PMFSH Past Medical History Medical History HTN (hypertension) Myocardial infarction SVT (supraventricular tachycardia) Surgical History Surgical History Hx of hysterectomy Social History Social History Alcohol intake: never Gender identity (if verbalized by the patient): Female Course Course Emergency Course: Patient remained in normal sinus rhythm with heart rate in 80s. I discussed the lab work, EKG findings with the patient. 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 Pt stated that she got a phone call from her Cardiology office with an appointment. Vital Signs Vital signs: Vital Signs Temperature 36.8 C 03/16/24 10:48 Pulse Rate 81 03/16/24 10:48 Respiratory Rate 14 03/16/24 10:48 Blood Pressure 150/78 H 03/16/24 10:48 Pulse Oximetry 96 03/16/24 10:48 Temperature 36.8 C 03/16/24 10:48 Pulse Rate 78 03/16/24 14:37 Respiratory Rate 18 03/16/24 14:37 Blood Pressure 139/71 03/16/24 14:37 Pulse Oximetry 100 03/16/24 14:37 Medical Decision Making Medical Records Medical records reviewed: Yes I reviewed the external patient's medical records. Vital Signs Vital Signs: Vital Signs Temperature 36.8 C 03/16/24 10:48 Pulse Rate 81 03/16/24 10:48 Respiratory Rate 14 03/16/24 10:48 Blood Pressure 150/78 H 03/16/24 10:48 Pulse Oximetry 96 03/16/24 10:48 Temperature 36.8 C 03/16/24 10:48 Pulse Rate 78 03/16/24 14:37 Respiratory Rate 18 03/16/24 14:37 Blood Pressure 139/71 03/16/24 14:37 Pulse Oximetry 100 03/16/24 14:37 Lab Data 03/16/24 11:07 03/16/24 11:07 Labs: Lab Results 03/16/24 03/16/24 Range/Units 11:07 14:01 WBC 7.9 (4.5-10.0) K/mm3 RBC 5.17 (4.2-5.4) M/mm3 Hgb 14.6 (12.0-15.0) g/dL Hct 48.0 H (37.0-47.0) % MCV 92.8 (80-100) fl MCH 28.2 (26-34) pg MCHC 30.4
== END 2024-03-16 15:08 | disposition home or self-care (01) ==
PROVIDERS: Emergency Provider Family Medicine
DX: I47.19 Other supraventricular tachycardia (principal); I10 Essential (primary) hypertension; I25.10 Atherosclerotic heart disease of native coronary artery without angina pectoris; I25.2 Old myocardial infarction
CPT/HCPCS: 36415; 71046; 80053; 83880; 84484; 85025; 85610; 85730; 93005; 99284; A9270

== ENCOUNTER 2025-04-08 11:47 | Observation (INO) | payer MEDICARE, SELFPAY ==
[2025-04-08] VITALS (34 sets, daily range): BP systolic 166–237; BP diastolic 76–114; PULSE 73–86; RESP 12–23; TEMP 36.6–36.7; O2SAT 93–100; BMI 26.8
--- NOTE | ~2025-04-08 | XR_ITS ---
XR chest 2V Ordering provider: Jean Marie Vaughn History: 74 years Female with . chest pain, LEFT SIDED CP X 1 WEEK . Comparison: March 16, 2024 FINDINGS: MEDIASTINUM: The cardiac silhouette is not enlarged. LUNGS: No infiltrates, effusions or pneumothorax. OTHER: No free air under the diaphragm. IMPRESSION: No acute cardiopulmonary pathology. Reviewed, dictated and finalized at location A.
--- NOTE | ~2025-04-08 | CT_ITS ---
CT brain wo con Ordering provider: Roberth Solorio MD History: 74 years Female with . near syncope . Comparison: None. Technique: CT of the head without contrast. . Radiation reduction technique utilized. The dose-length product was 529.67 to mGy-cm. FINDINGS: BRAIN PARENCHYMA AND CSF SPACES: No midline shift, mass effect or hemorrhage. The brain parenchyma a nd CSF spaces are otherwise normal. VISUALIZED PARANASAL SINUSES: Well aerated. MASTOIDS: Well aerated. BONES: The bones appear intact. SOFT TISSUES: Visualized nasopharynx is normal. Superficial soft tissues are normal. IMPRESSION: No acute intracranial findings. Reviewed, dictated and finalized at location A.
--- NOTE | 2025-04-08 12:00 | ECG_ITS ---
Test Date: 2025-04-08 12:11:49 Measurements Intervals Mary D Rate: 80 P: 57 DE: 149 QRS: 80 QRSD: 86 T: 186 QT: 390 QTc: 452 Interpretive Statements SINUS RHYTHM ST-T WAVE ABNORMALITY IN DIFFUSE LEADS- CONSIDER ISCHEMIA BASELINE ARTIFACT- I, II, III, AVR, AVL, AVF ABNORMAL ECG No previous ECG available for comparison Electronically Signed On 04-08-2025 13:03:51 CDT by Chava Castorena D.O.
[2025-04-08] MEDS: ASPIRIN 81 MG CHEWABLE TABLET 324 MG PO (12:16)
[2025-04-08 12:23] LABS: Basophils Absolute Auto 0.1 K/mm3 (0.0-0.1); Basophils Percent Auto 0.5 % (0.2-1.2); Eosinophils Absolute Auto 0.1 K/mm3 (0-0.3); Eosinophils Percent Auto 0.7 % (0-4.4); Hematocrit 49.3 % (37.0-47.0); Hemoglobin 15.1 g/dL (12.0-15.0); Immature Granulocyte Absolute 0.05 K/mm3 (0.00-0.031); Immature Granulocyte Percent A 0.4 % (0-0.5); Lymphocytes Absolute Auto 1.72 K/mm3 (0.9-3.2); Lymphocytes Percent Auto 15.5 % (18.3-44.2); Mean Corpuscular HGB Conc 30.6 g/dl (32-36); Mean Corpuscular Volume 91.5 fl (80-100); Mean Platelet Volume 9.7 fl (7.4-10.4); Monocytes Absolute Auto 0.7 K/mm3 (0.1-0.6); Monocytes Percent Auto 5.9 % (2.6-8.5); Neutrophils Absolute Auto 8.6 K/mm3 (1.3-6.7); Platelet Count Result 319 k/mm3 (150-375); Red Blood Count 5.39 M/mm3 (4.2-5.4); Red Cell Distribution Width 11.9 % (11.5-14.5); White Blood Count 11.1 K/mm3 (4.5-10.0)
[2025-04-08 12:34] LABS: Alanine Aminotransferase 30 U/L (6-35); Albumin Level 4.4 g/dL (3.5-5.1); Alkaline Phosphatase 74 U/L (38-126); Anion Gap 7 mmol/L (4-12); Aspartate Amino Transferase 33 U/L (14-36); Bilirubin,Total 0.4 mg/dL (0.2-1.3); Blood Urea Nitrogen 11 mg/dL (7-17); Calcium 9.5 mg/dL (8.4-10.2); Carbon Dioxide 27 mmol/L (22-30); Chloride 104 mmol/L (98-107); Estimated CRCL calculation 67 ml/min; Estimated Glomerular Filt Rate > 60; Glucose 132 mg/dL (65-110); Lipase 73 U/L (23-300); Potassium 3.9 mmol/L (3.4-5.0); Sodium 138 mmol/L (137-145)
[2025-04-08 12:35] LABS: INR 1.1
[2025-04-08 12:36] LABS: Partial Thromboplastin Time 27.7 Seconds (22.3-36.8)
[2025-04-08 12:47] LABS: Troponin I 0.072 ng/mL (0.000-0.034)
--- NOTE | 2025-04-08 13:04 | ED_ITS ---
HPI - Syncope General Chief Complaint: Syncope Stated Complaint: near syncope, htn Time Seen by Provider: 04/08/25 12:39 History of Present Illness HPI narrative: 74-year-old female with history of hypertension, coronary disease, paroxysmal SVT. She is on multiple anti hypertensive medications including metoprolol, lisinopril, amlodipine. Patient states she stopped taking her metoprolol recently as it was a recent changes she felt better during her previous hospital visits so she does not feel like she needs it. Today she presents after she had a near syncopal event while getting out of a hot shower. She felt warm and flushed and feel like her heart was racing. She tried doing some vasovagal techniques to bear down and did improve her heart rate. She was concerned enough that she called ambulance for arrival to the hospital. Denies any headache, vision changes. Endorses some intermittent left-sided chest pain that is not present presently denies any shortness a breath, nausea, vomiting, abdominal pain, back pain, fever, chills. This size the metoprolol she is still taking her other medications regularly. No head trauma or falls. Related Data Home Medications ?Medication ?Instructions ?Recorded ?Confirmed ?Last Taken ?Type amlodipine 10 mg tablet 10 mg PO DAILY 05/03/20 04/08/25 04/08/25 08:00 History 10 mg aspirin 81 mg tablet,delayed 81 mg PO DAILY 05/03/20 04/08/25 04/08/25 08:00 History release 81 mg atorvastatin 80 mg tablet 80 mg PO QPM 07/23/22 04/08/25 04/07/25 20:00 History 80 mg cyclobenzaprine 5 mg tablet 5 mg PO DAILY PRN muscle spasm 07/23/22 04/08/25 Unknown History lisinopril 20 1 tablet PO DAILY 07/23/22 04/08/25 04/08/25 08:00 History mg-hydrochlorothiazide 12.5 mg 1 tablet tablet metoprolol succinate 25 mg 25 mg PO DAILY 07/23/22 04/08/25 04/08/25 19:00 History tablet,extended release 24 hr 25 mg Allergies Allergy/AdvReac Type Severity Reaction Status Date / Time No Known Allergies Allergy Mild Verified 04/08/25 12:16 Review of Systems 2 Review of Systems: As reviewed above in HPI [facility] Past Medical History Medical History Myocardial infarction SVT (supraventricular tachycardia) HTN (hypertension) Surgical History Surgical History Hx of hysterectomy Family History Family History Sibling Acute myocardial infarction Father Acute myocardial infarction Pacemaker Mother Renal failure Acute myocardial infarction Social History Social History Smoking status: Never smoker Alcohol intake: never Substance use: never Do You Feel Safe in your Home?: Yes Lack of Transportation: No Lack of Food: Never True Current Housing: I Have Housing Concerned About Future Housing: No Difficulty Paying Gas/Electric Bills: No Difficulty Paying for Meds: No Currently Unemployed: No Education: High School Diploma/GED Difficulty w/ Childcare or Family Care: No Gender identity (if verbalized by the patient): Female Spiritual care concerns: No Exam 2 Narrative: GENERAL: [Well-appearing, well-nourished, and in no acute distress.] HEAD: [Normocephalic, atraumatic.] EYES: [PERRLA and EOMI.] ENT: Nares clear, no rhinorrhea or epistaxis. Mucous membranes moist. NECK: Supple. CHEST: [Clear to auscultation. No respiratory distress.] HEART: [Regular rate and rhythm]. No murmur heard. [Normal peripheral pulses.] ABDOMEN: [Soft, nondistended], [nontender], [No rigidity or guarding] EXTREMITIES: Normal range of motion. [No edema.] SKIN: Warm, dry, no rash. NEURO: [No focal deficits]. Alert and oriented [x3.] PSYCH: [Normal mood and affect.] Course Vital Signs Vital signs: Vital Signs Temperature 36.7 C 04/08/25 11:48 Pulse Rate 85 04/08/25 11:48 Respiratory Rate 18 04/08/25 11:48 Blood Pressure 215/88 H 04/08/25 11:48 Pulse Oximetry 98 04/08/25 11:48 Oxygen Delivery Room Air 04/08/25 11:48 Temperature 36.7 C 04/08/25 19:52 Pulse Rate 79 04/08/25 22:00 Respiratory Rate 16 04/08/25 20:40 Blood Pressure 188/76 H 04/08/25 19:56 Pulse Oximetry 98 04/08/25 20:40 Oxygen Delivery Room Air 04/08/25 20:40 MDM - Syncope MDM Narrative Medical decision making narrative: 74-year-old female with history of hypertension, coronary disease, paroxysmal SVT. She is on amlodipine, lisinopril and recently took herself off of metoprolol. Patient presents for near syncopal event after she got out of a hot shower she felt hot and flushed and feeling faint. She knows that are moves high and she did some vasovagal techniques which improved her heart rate. Presently denying any symptoms but want to be evaluated as her blood pressure was high when EMS called. Blood pressure is 215/88, no tachycardia, tachypnea, fever, hypoxia. She has strong symmetric pulses, clear breath sounds, normal neurological assessment. No complaints at this time. Workup ordered this time including a CT of the head, EKG, chest x-ray, CBC, CMP, serial troponins. She has had serial elevations in her previous troponins and sees a primary care provider at [facility]. Denies any active chest pain, shortness a breath, back pain, abdominal pain, nausea vomiting. Considerations presently for vasovagal syncope, orthostatic syncope, vasodilation from warm shower, ACS, intracranial pathology such as stroke, electrolyte abnormalities, dehydration, pneumonia. Patient's workup reveals hemoconcentration with elevated white blood cell and hemoglobin likely from dehydration. Coagulation panel is normal. Electrolytes are normal. Normal creatinine, normal glucose. Normal LFTs. Troponin is elevated 0.072 but lower than her previous elevations. 3 hour troponin was downtrending at 0.066. Blood pressure remained elevated in the 200 range so she was provide her home medications including amlodipine, metoprolol. Chest x-ray shows no acute cardiopulmonary disease. CT head shows no acute findings. Patient re-evaluated frequently and denies any chest pain or difficulty in breathing but she was concerned about her blood pressure elevations. Her EKG shows ST abnormalities diffusely without any interval change from prior., no ST segment elevations. Patient was given IV labetalol for her elevated blood pressures and will be admitted to the IMU for management. Discussed the case with the hospitalist service who accepts the patient this time and patient was weight aware of the plan for admission. Medical Records Attestation: I reviewed the patient's medical records. Lab Data Attestation: I reviewed the patient's lab results. 04/08/25 12:14 04/08/25 12:14 Labs: Lab Results 04/08/25 04/08/25 Range/Units 12:14 14:57 WBC 11.1 H (4.5-10.0) K/mm3 RBC 5.39 (4.2-5.4) M/mm3 Hgb 15.1 H (12.0-15.0) g/dL Hct 49.3 H (37.0-47.0) % MCV 91.5 (80-100) fl MCH 28.0 (26-34) pg MCHC 30.6 L (32-36) g/dl RDW 11.9 (11.5-14.5) % Plt Count 319 (150-375) k/mm3 MPV 9.7 (7.4-10.4) fl Immature Gran % (Auto) 0.4 (0-0.5) % Neut % (Auto) 77.0 H (45.5-73.1) % Lymph % (Auto) 15.5 L (18.3-44.2) % [place] % (Auto) 5.9 (2.6-8.5) % Eos % (Auto) 0.7 (0-4.4) % Baso % (Auto) 0.5 (0.2-1.2) % Lymph # (Auto) 1.72 (0.9-3.2) K/mm3 [place] # (Auto) 0.7 H (0.1-0.6) K/mm3 Eos # (Auto) 0.1 (0-0.3) K/mm3 Baso # (Auto) 0.1 (0.0-0.1) K/mm3 Abs Immat Gran (auto) 0.05 H (0.00-0.031) K/mm3 Absolute Neuts (auto) 8.6 H (1.3-6.7) K/mm3 Absolute Nucleated RBC 0.000 (0.0-0.012) K/mm3 Nucleated RBC % 0.0 (0.0-0.2) % PT 14.0 (11.1-14.7) Seconds INR 1.1 APTT 27.7 (22.3-36.8) Seconds Sodium 138 (137-145) mmol/L Potassium 3.9 (3.4-5.0) mmol/L Chloride 104 (98-107) mmol/L Carbon Dioxide 27 (22-30) mmol/L Anion Gap 7 (4-12) mmol/L BUN 11 (7-17) mg/dL Creatinine 0.55 L (0.7-1.0) mg/dL Estim Creat Clear Calc 67 ml/min Estimated GFR > 60 (59 - ) Glucose 132 H (65-110) mg/dL Calcium 9.5 (8.4-10.2) mg/dL Total Bilirubin 0.4 (0.2-1.3) mg/dL AST 33 (14-36) U/L ALT 30 (6-35) U/L Alkaline Phosphatase 74 (38-126) U/L Troponin I 0.072 H* 0.066 H* (0.000-0.034) ng/mL Total Protein 8.0 (6.3-8.2) g/dL Albumin 4.4 (3.5-5.1) g/dL Lipase 73 (23-300) U/L Imaging Data Attestation: I personally reviewed and interpreted this imaging study as follows: My impression: Impressions Head CT 04/08/25 13:16 IMPRESSION: No acute intracranial findings. Chest X-Ray 04/08/25 13:26 IMPRESSION: No acute cardiopulmonary pathology. ECG Data EKG #1: Attestation: I personally reviewed and interpreted this ECG as follows: ECG completion date: 04/08/25 ECG completion time: 15:01 Prior ECG tracings: available for review Interpretation: Diffuse T-wave inversions, no ST segment elevations, depressions. QTC 472, CT interval 164, rate of 70 beats per minute. Sinus rhythm, regular rhythm and axis. No interval change compared to the prior EKG. Critical Care Time Critical Care Time Critical Care Time: Yes Total Critical Care Time: 35 Discharge Plan Discharge Clinical Impression: Hypertensive urgency, Pre-syncope, Elevated troponin Patient Disposition: Still a Patient Condition: Stable
[2025-04-08] MEDS: LACTATED RINGERS 1,000 ML 999 ML IV CONT (14:01)
--- OUTSIDE RECORDS SUMMARY | 2025-04-08 14:22 | XMS_ITS | Clinical Summary ---
Author Organization [facility] al Address [address] [place] [address] Care Team Providers Care Business Intelligence Manager Name Role Phone Clarence Reno MD Primary Care Provider [phone] Allergies No known active allergies Medications cholecalciferol (VITAMIN D-3) 5,000 unit tablet Take 1 tablet (5,000 Units total) by mouth daily Active vitamin E (AQUASOL E) 400 unit capsule 1 capsule (400 Units total) daily Active miconazole 2 % powderIndication s:Rash Apply topically as needed for itching 70 g 2 07/27/20 22 Active aspirin 81 mg enteric coated tabletIndication s:Coronary artery disease involving chilkoot coronary artery of chilkoot heart without angina pectoris Take 1 tablet (81 mg total) by mouth daily 90 tablet 3 11/22/19 24 Active ezetimibe (ZETIA) 10 mg tablet Take 1 tablet (10 mg total) by mouth daily 90 tablet 3 11/25/19 24 Active atorvastatin (LIPITOR) 80 mg tabletIndication s:Healthcare maintenance Take 1 tablet by mouth once daily 90 tablet 03/19/20 24 Active lisinopriL (PRINIVIL,ZESTRI L) 40 mg tabletIndication s:Essential hypertension Take 1 tablet (40 mg total) by mouth daily 90 tablet 3 03/30/20 24 Active metoprolol XL (TOPROL-XL) 25 mg extended release tablet Take 1 tablet (25 mg total) by mouth daily 03/16/20 24 Active hydrocortisone (ANUSOL-HC) 25 mg suppositoryIndic ations:Hemorrhoi ds Insert 1 suppository (25 mg total) into the rectum 2 (two) times a day as needed for hemorrhoids 24 suppository 2 09/23/20 24 Active hydrocortisone 2.5 % creamIndications :Hemorrhoids Apply topically 2 (two) times a day 28 g 2 09/23/20 24 025 Active amLODIPine (NORVASC) 10 mg tabletIndication s:Essential hypertension Take 1 tablet (10 mg total) by mouth daily 90 tablet 3 10/30/19 25 026 Active Active Problems Problem Noted Date Diagnosed Date Grade I hemorrhoids 07/23/2024 Overview (09/05/2024): Continued hemorrhoid and anal pain. States that they wax and wane but that she is tired of experiencing these symptoms. States that she has intermittent constipation, with hard stools and straining at least 1x a week. States that she has OTC laxatives which she has not taken. Has consumed prunes regularly. Has been treating with preparation H and previously prescribed hydrocortisone 2.% HC as well as Sitz baths. Has never had colonoscopy done. FIT test negative 11/2023. Confirmation of external hemorrhoid today 09/05/2024 on RG, non-distended but outpouching noted. Internal hemorrhoid palpated. Assessment & Plan (09/05/2024 1:45 PM PRODUCTION PATTERN MAKER): - Internal hemorrhoid palpated at anal verge 9 o clock position - external hemorrhoid visualized, no evidence of bleeding - counseled patient on the importance of not having constipation, advised eating prunes daily and maintaining adequate hydration - continue Sitz bath - continue hydrocortisone 2.5% cream - referral to colorectal surgery if hemorrhoids do not improve for consideration of flex sig versus colonoscopy Assessment & Plan (07/23/2024 12:02 PM CDT): -- Continue preparation H and damp pads. -- Continue soaking baths. -- Begin anusol HC cream Discomfort of left ear 04/03/2024 Assessment & Plan (04/03/2024 1:13 PM CDT): Exam reassuring for not infection. Potentially related to Eustachian tube dysfunction - discussed seasonal allergy medication. Pt can take allison or zyrtec if claritin is causing drowsiness. - Pt will try OTC fluticasone - can try sweet oil for other ear discomfort Paroxysmal SVT (supraventricular tachycardia) Assessment & Plan (04/03/2024 1:09 PM CDT): Unclear history, potentially in setting of hospitalization. Is taking metoprolol XL from prior fills (though has been discontinued from our clinic). - follows with cardiology 03/2024. Closed fracture of one or more phalanges of foot 11/24/2023 Overview (04/03/2024): 11/24/2023 fall with plain films showing minimally displaced fx of L hallux. Assessment & Plan (04/03/2024 1:11 PM CDT): Well-appearing on exam, though patient still feels off. Did not think there was any pain, patient not interested in any further work at this time. Assessment & Plan (11/24/2023 4:51 PM PRODUCTION PATTERN MAKER): XR L foot and great toe revealing minimally displaced fracture at base of 1st phalanx. - patient to be reevaluated in clinic for octavio taping education and bracing Assessment & Plan (11/24/2023 11:27 AM PRODUCTION PATTERN MAKER): X-ray which showed minimally displaced fracture at base of 1st phalanx. Exam unrevealing. - Return in 4 weeks for recheck - Order DME of post-op shoe - Octavio-wrap performed today Fall 11/24/2023 Assessment & Plan (11/24/2023 4:50 PM PRODUCTION PATTERN MAKER): FRANCO on 11/04/23, now w/ L hand pain (palmar numbness and tingling, +phalens sign) and L great toe pain. No gross bony abnormalities on examination. - XR L hand, wrist, radius/ulna - XR L great toe and foot - wrap and brace of L foot, likely post-traumatic carpal tunnel - APAP PRN and topical therapies - if not improving hand mobility sxs, consider PT/OT at f/u Urinary tract infection without hematuria 2022 Assessment & Plan (07/28/2023 2:15 PM CDT): - 07/09/2023 Started experiencing pain on urination and increased urination frequency - 07/11/2023 Began and finished 7 days course of cephalexin 500 mg. - 07/28/2023 Reports noticeable improvement but still experiences some pain. - 07/28/2023 UA did not show any leukocyte esterase. PLAN - Avoiding vaginal douching - No need for additional antibiotics at this point as UA was negative. If dysuria symptoms worsen or new symptoms appear, patient can seek out medical attention. - Called patient's daughter to inform of the result of UA and no need for additional antibiotics. Upper respiratory infection, viral 01/12/2023 Assessment & Plan (01/12/2023 7:29 AM CDT): -No indication for strept throat testing at this time based on symptoms and exam findings, Centor score 1; Covid test at local pharmacy. Symptomatic treatment. If granddaughter comes down with strept, avoid contact. Rash 07/27/2022 Overview (07/27/2022): Within the crease and posterior to anus that has been itching and has some painful skin lesions. Has not been sexually active. Feels it has been getting better with keeping the area clean but would like it looked at. Appearance consistent with intertrigo -Miconazole powder trial Dyslipidemia 07/27/2022 Assessment & Plan (11/24/2023 4:31 PM PRODUCTION PATTERN MAKER): LDL remains quite elevated despite atorva 80. Last LDL 139, HDL 55, Tg 174. - continue atorva 80 - add zetia 10mg daily Assessment & Plan (10/26/2022 7:47 AM PRODUCTION PATTERN MAKER): Continue atorva 80 - repeat lipid panel w/ labs in 2 wks Osteopenia 07/27/2022 Overview (07/27/2022): Patient asked about DEXA scan result and the diagnosis of osteopenia was explained. -Check vitamin D level and decide on supplementation Change in bowel habit 05/27/2022 Unspecified menopausal and perimenopausal disord er 05/27/2022 Sciatica 11/08/2021 Assessment & Plan (11/08/2021 9:36 PM PRODUCTION PATTERN MAKER): Presenting with 5 days of L buttock pain radiating into the posterior thigh with onset during stretching; worse with activity and associated tingling. Exam with positive straight leg test, no red flag symptoms or signs on exam. This is most consistent with L radiculopathy/sciatica. Less likely fracture given lack of history of trauma and exam without reduction in internal rotation, but if not improving will consider imaging. Unlikely vascular in nature given acute onset. Less likely trochanteric bursitis given location of tenderness. - trial of NSAIDs + tylenol - rx for lidocaine cream - physical therapy referral - provided information about condition, expected course of disease, and return precautions Coronary artery disease invo lving chilkoot coronary artery of chilkoot heart without angina pectoris 06/23/2020 Assessment & Plan (11/24/2023 3:41 PM PRODUCTION PATTERN MAKER): Hx CAD with prior NSTEMI, medically managed. On asa 81 and amlo/lisinopril for BP control, atorva 80. Hx of BB intolerance. 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 Assessment & Plan (01/12/2023 7:31 AM CDT): -flu vaccine in fall, pt declines covid bivalent booster today -previously ordered lipid panel and BMP on 4th floor today Assessment & Plan (06/17/2020 2:23 PM CDT): Colonoscopy: Never performed; deferred today due to COVID fears Mammogram: Several years ago; deferred today due to COVID fears Pap: Requested environmental project manager referral; previously referred DEXA: Never; deferred today due to COVID fears A1c: A1c 4.6% 04/2019 Lipid: LDL 93 04/2019; on atorvastatin 80mg HIV: Never tested; discuss at next in-person visit HCV: ([id number]) never tested; discuss at next in-person visit Immunizations: Tetanus booster >10 years ago; had never had pneumococcal vaccination; discuss vaccinations at next in-person visit Assessment & Plan (03/03/2020 10:55 AM CDT): Colonoscopy: Never performed; ordered today Mammogram: Several years ago; ordered today Pap: Requested environmental project manager referral; referral placed DEXA: Never; order previously placed and pending A1c: A1c 4.6% 04/2019 Lipid: LDL 93 04/2019; on atorvastatin 80mg HIV: Never tested; discuss at next in-person visit HCV: ([id number]) never tested; discuss at next in-person visit Immunizations: Tetanus booster >10 years ago; had never had pneumococcal vaccination; discuss vaccinations at next in-person visit SVT (supraventricular tachycardia) ([facility]) 07/2020 Assessment & Plan (11/24/2023 4:35 PM PRODUCTION PATTERN MAKER): Hx recurrent SVT though asymptomatic today and without recent occurrences. Previously established with EP, had been scheduled for ablation but ultimately declined. Intolerant to BB and normal HR today. - f/u cards PRN Assessment & Plan (01/12/2023 7:31 AM CDT): -contact Dr. Peralta re rescheduling ablation Assessment & Plan (10/26/2022 7:46 AM PRODUCTION PATTERN MAKER): Symptomatically well controlled on metop XL 25mg BID. Ablation scheduled for 11/02/22, though pt unsure if she will go through with it. - encouraged pt to discuss concerns with fashion director party plan sales and emphasized indications and importance of procedure Assessment & Plan (09/06/2022 10:07 AM PRODUCTION PATTERN MAKER): Asymptomatic on metop succinate 25mg BID. Rates normal at time of visit. Following w/ EP, planned for ablation in 10/2022. - continue metop Assessment & Plan (06/17/2020 2:23 PM CDT): Had 2nd episode of SVT in mid April leading to brief hospital stay. During admission, had metoprolol increased from 12.5 BID to 25 BID and was referred to EP as outpatient for discussion of ablation. Patient has since self decreased her metoprolol back to 12.5 BID due to feelings of dizziness and lightheadedness. No further issues with tachycardia since discharge. - Continue metoprolol 12.5 BID for now; will defer any beta triston changes to EP appointment on 06/23 - Encouraged to keep EP appointment on 06/23 Assessment & Plan (05/05/2020 4:13 PM CDT): Patient had SVT in ambulance with HR >170s, but self converted to normal sinus rhythm. Patient compliant with home metoprolol 12.5 mg BID. Patient was supposed to have appointment in March with Dr. Escoto in cardiology, but that appointment has been cancelled. Her cardiac conditions have been managed by her PCP Dr. Sexton at [facility]. - tele: NSR overnight - Cardiology consulted, appreciate recs: - increase metoprolol 12.5mg BID -> 25mg BID. Uptitrate as outpatient as tolerable. - referral placed for EP follow up to discuss ablation Assessment & Plan (03/03/2020 10:53 AM CDT): Diagnosed at ED visit in 11/2019. Has been on metoprolol 12.5mg BID since that time with no recurrence of symptoms. Reports that HR is generally in 60s when she does her daily blood pressure check. Has cardiology intro visit on 03/28/2020. 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 Possibly secondary to structural heart disease, less likely new heart failure but does have some reduced exercise tolerance recently. No recent illnesses, symptoms or signs of thyroid disease, substance use or other clear precipitating factor. -recheck CBC and TSH today -reordered echo, instructed them to call for scheduling -cardiology referral placed -they will complete the event monitor per [facility] and we will review this, may need to request records for this -continue metoprolol Essential hypertension 01/05/2019 Overview (09/05/2024): BP Readings from Last 3 Encounters: 09/05/24 (!) 172/80 07/23/24 (!) 181/83 04/16/24 (!) 184/103 Patient was previously advised to bring home cuff to ensure proper calibration. Did not bring cuff today. Reports home BP ranges aroudn 130/72. Previously discussed increasing metoprolol XL to 50 mg which she declined. Discussed adding HCTZ today, which she deferred, amenable to discussion with Dr. Reno. Assessment & Plan (09/05/2024 1:46 PM PRODUCTION PATTERN MAKER): - patient needs more adequate BP control - she should bring in a BP log or her home cuff for calibration - Dr. Reno, please discuss initiating HCTZ on next follow-up Assessment & Plan (07/23/2024 12:01 PM CDT): Systolics reportedly 120 at home but elevated from stress getting into clinic. Recheck also 180 -- Advised the patient to bring in home cuff to make sure it is calibrated correctly. -- Discussed increasing metoprolol to 50 but patient declined at this time. Discussed that we will hold off until BP cuff is calibrated to see if home readings are true. Assessment & Plan (04/03/2024 1:08 PM CDT): Systolics reportedly 120 at home but elevated from stress getting into clinic. Recheck also 180 - pt wants to check BP with home cuff, bring home cuff to next clinic visit - amlo 10, lisinopril 40 Assessment & Plan (11/24/2023 4:34 PM PRODUCTION PATTERN MAKER): Above goal last visit, though not compliant with medications. Chronically elevated and educated on importance of medication compliance. Not interested in adding new medications today. - continue amlodipine 10mg daily and lisinopril 40mg daily - encouraged medication compliance - CBC, CMP today Assessment & Plan (11/24/2023 11:26 AM PRODUCTION PATTERN MAKER): Above goal today. Patient reports missed medications. Counseled on compliance - Continue amlodipine 10 mg and lisinopril 40 mg daily. Assessment & Plan (07/28/2023 2:09 PM CDT): PLAN Continue amlodipine 10 mg and lisinopril 40 mg daily. Assessment & Plan (01/12/2023 7:29 AM CDT): -cont bp meds as prescribed, bp controlled at home, cont checking bp at home, cont staying off of spironolactone Assessment & Plan (10/26/2022 7:45 AM PRODUCTION PATTERN MAKER): Compliant w/ amlo 10, lisinopril 40. Previously discontinued thiazide use d/t polyuria. Open to trialing low dose spironolactone, did caution that this is a mild diuretic and patient was amenable. - continue amlo 10 - continue lisinopril 40 - continue metop XL 25 BID - start spironolactone 12.5mg daily, uptitrate at f/u appt if tolerating - BMP in 2 weeks post initiation Assessment & Plan (09/06/2022 10:06 AM PRODUCTION PATTERN MAKER): Above goal 150s/70s, rechecked 130s/70s. 130-140 systolics at home. Compliant w/ amlo 10, lisinopril 40, has self-d/c'd thiazide in past d/t polyuria. Strong lifestyle modifications (diet, ex, no substance use) underway. Pt expresses strong preference to not start any new medications today despite being above goal. Discussed with patient importance in adequate BP control to lower complication risk. - d/t pt preference, will continue current regimen. Plan for 1mo f/u, if remains elevated, will start new medication (metop -> coreg; MRB; likely not a thiazide d/t pt wanting to avoid diuresis) Assessment & Plan (11/08/2021 9:31 PM PRODUCTION PATTERN MAKER): Hypertensive at this visit and has been at several. Endorses compliance with meds but didn't take this AM. Will bring back in 1 week to discuss Assessment & Plan (06/17/2020 2:20 PM CDT): Patient reports compliance with amlodipine 10 daily, lisinopril 40 daily, metoprolol 12.5 BID. Patient was discharged on metoprolol 25 BID but self decreased due to feelings of lightheadedness and fatigue. Reports BP at home 120s-130s/70s. Asymptomatic - Continue current home regimen Assessment & Plan (05/05/2020 4:10 PM CDT): Patient has been hypertensive to the 200s here. Per patient, she received hydralazine at OSH, but records do not confirm this. On the floor, she received IV labetalolx1 which reduced BP to 142/62. - c/w amlodipine 10 mg daily - c/w lisinopril 40 mg daily - increase metoprolol 12.5mg BID -> 25mg BID. Uptitrate as outpatient as tolerable. Assessment & Plan (03/03/2020 10:51 AM CDT): Patient previously with poor control of BP but reports good control recently with reported at home measurements. States that BP has been 130s/60s-70s at home. Remains compliant with lisinopril 40mg, amlodipine 10mg, and metoprolol 12.5mg BID. Denies any symptoms or medication side effects. - Continue lisinopril, amlodipine, and metoprolol Assessment & Plan (12/03/2019 12:40 PM PRODUCTION PATTERN MAKER): Less controlled today, continue medications today without change and defer to PCP Assessment & Plan (05/29/2019 11:34 AM CDT): HTN remains poorly controlled on lisinopril 40mg and metoprolol 25mg BID. Reports better control at home, but patient does not have any recorded values and did not bring home BP cuff to correlate to our in office measurements. BP 200s/100s in clinic today with similar readings on two manual rechecks. - Start amlodipine 10mg today; continue lisinopril and metoprolol at previous doses - Follow up in 2 weeks for team visit. If patient remains uncontrolled with addition of amlodipine, would consider changing metoprolol to carvedilol. - Instructed to bring home BP cuff and log of recorded BP to next visit Assessment & Plan (02/22/2019 6:50 PM CDT): HTN remains poorly controlled on lisinopril 10mg and metoprolol 25mg BID. Reports better control at home, but patient does not have any recorded values. BP 200s/90s in clinic today which patient attributes to stress. Will increase lisinopril today and schedule close follow up to achieve good blood pressure control. - Noted to have DERIAN on previous BMP; BMP ordered today but patient states that she is unable to have blood drawn today; patient instructed to have blood drawn within 1 week - Will fill for 14 day course of lisinopril 20mg today. Pending results of BMP, will continue lisinopril 20mg vs switching for amlodipine. - Instructed to record home BP and bring log to next visit - Follow up with team visit in 2 weeks Assessment & Plan (01/09/2019 9:45 AM CDT): Patient admitted with noted hypertensive urgency with improved blood pressure after provided with beta triston. -bp much improved now on current regimen of lisinopril and metopolol -Diet modification -Nutrition consultation Assessment & Plan (01/08/2019 10:42 AM CDT): Patient admitted with noted hypertensive urgency with improved blood pressure after provided with beta triston. -Initially started on carvedilol 25 mg BID with significant drop in blood pressure. Transitioned to metoprolol 25 mg BID + lisinopril 5 mg daily. Up-titrate as needed - Suspect patient was taking dextromethorphan at home which caused acute rises in blood pressure. Patient counseled to avoid dextromethorphan -Diet modification -Nutrition consultation Assessment & Plan (01/07/2019 11:34 AM CDT): Patient admitted with noted hypertensive urgency with improved blood pressure after provided with beta triston. -Initially started on carvedilol 25 mg BID with significant drop in blood pressure. Transitioned to metoprolol 25 mg BID + lisinopril 5 mg daily. Up-titrate as needed - Suspect patient was taking dextromethorphan at home which caused acute rises in blood pressure. Patient counseled to avoid dextromethorphan -Diet modification -Nutrition consultation Assessment & Plan (01/06/2019 12:38 PM CDT): Patient admitted with noted hypertensive urgency with improved blood pressure after provided with beta triston. -Initially started on carvedilol 25 mg BID with significant drop in blood pressure. Will transition to metoprolol 12.5 mg BID + lisinopril 5 mg daily. Up-titrate as needed - Suspect patient was taking dextromethorphan at home which caused acute rises in blood pressure. Patient counseled to avoid dextromethorphan -Diet modification -Nutrition consultation Assessment & Plan (01/05/2019 2:26 PM CDT): Patient admitted with noted hypertensive urgency with improved blood pressure after provided with beta triston. -Plans to continue carvedilol but reduce dosage to 12.5mg daily. Add Lisinopril 5mg daily -Diet modification -Nutrition consultation NSTEMI (non-ST elevated myocardial infarction) 0 01/05/2019 Assessment & Plan (11/24/2023 4:33 PM PRODUCTION PATTERN MAKER): Hx medically managed NSTEMI in 2019. Multiple risk factors including poorly controlled HTN with medication noncompliance, advanced age, hyperlipidemia. - continue asa - intolerant to BB - continue atorva 80 - add zetia 10 - encouraged medication compliance Assessment & Plan (05/05/2020 4:14 PM CDT): Patient p/w trop 0.046-->0.582 and systolic BPs in the 190s. She denies CP, but had N/V, headache, and arm feeling weird. EKG from OSH showed T wave inversions in almost V4-V6, II, III, aVF, but no significant ST changes. Heparin was started at OSH and held upon transfer due to high SBP. IV labetalol was given to bring BPs down to 140s. Repeat trop was 1.54 and EKG was unchanged. She had a very similar presentation in December 2018 where troponin was 0.032->2.741-->2.35->1.98. EKG at that time showed RBBB and LVH. Patient had cath at that time which showed luminal irregularities in the left main coronary artery, left anterior descending artery, 50% stenosis in the left circumflex coronary artery. Medical management was recommended at that time. LATANYA score is 4 (age, ASA use, 50% stenosis, cardiac biomarkers.) Patient had echo December of this year which showed LVEF 74%. - Troponin downtrending 1.54 -> 1.45 -> 0.95 - Likely demand ischemia in setting of HTN and SVT - Repeat TTE unchanged - Cardiology consulted, okay to d/c heparin - atorvastatin 80 mg daily - aspirin 81 mg daily - c/w lisinopril 40 mg daily Assessment & Plan (12/03/2019 12:39 PM PRODUCTION PATTERN MAKER): Medically managed December 2018. Left heart catheterization at that time only with 50% left circumflex disease. -continue aspirin, atorvastatin 80, lisinopril, metoprolol as above Assessment & Plan (01/09/2019 9:45 AM CDT): Patient with LHC at OSH on 01-02-2019 with report showing LCX disease (50%) and luminal irregularites to Left Main, LAD, OM, RCA, an PDA. -No chest pain noted this admission -Continue medication management with ASA, BB, and LENIN-I Assessment & Plan (01/08/2019 10:43 AM CDT): Patient with LHC at OSH on 01-02-2019 with report showing LCX disease (50%) and luminal irregularites to Left Main, LAD, OM, RCA, an PDA. 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 -No chest pain noted this admission -Continue medication management with ASA, BB, and LENIN-I -Await OSH EKG to compare. 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 -No chest pain noted this admission -Continue medication management with ASA, BB, and LENIN-I -Await OSH EKG to compare. 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 -Continue medication management with ASA, BB, and added ACEI for now. -Await OSH EKG to compare. 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 No flank pain or CVA tenderness, no fever to suggest complicated UTI - UA w culture - will rx macrobid and call if ua not consistent Right bundle branch block (R BBB) on electrocardiogram (ECG) 01/04/2019 06/23/2020 Left anterior fascicular blo ck (LAFB) determined by electrocardiography 01/04/20192019 Assessment & Plan (01/09/2019 9:45 AM CDT): EKG with reading of Bifasicular block. - No active chest pain this admission Assessment & Plan (01/08/2019 10:42 AM CDT): EKG with reading of Bifasicular block. - No active chest pain this admission Assessment & Plan (01/07/2019 11:35 AM CDT): EKG with reading of Bifasicular block. Plans are to obtain EKG from OSH ( 01-01-19 and 01-04-19) to compare. - No active chest pain this admission Assessment & Plan (01/06/2019 12:37 PM CDT): EKG with reading of Bifasicular block. Plans are to obtain EKG from OSH ( 01-01-19 and 01-04-19). To compare. - No active chest pain this admission Assessment & Plan (01/05/2019 2:27 PM CDT): EKG with reading of Bifasicular block. Plans are to obtain EKG from OSH ( 01-01-19 and 01-04-19). To compare. Place on telemetry. Encounters Date Type Department Care Team Description 03/07/2025 Telephone [facility] [address] [place] [id number] Clarence Reno MD from Last 3 Months Immunizations Immunization Administration Dates Next Due Pfizer SARS-CoV-2 Monovalent Vaccination (12+ Yrs) HERRING-READY TO USE 06/14/2022 Surgical History Surgery Date Site/Laterality Comments HYSTERECTOMY Medical History Medical History Date Comments Hypertension Urinary tract infection Dysuria 11/08/2021 Encounter for screening mammogram for malignant neoplasm of breast 05/27/2022 Family History Medical History Relation Name Comments Coronary artery disease Father Hypertension Father Kidney disease Mother Stroke Mother Hypertension Sister Relation Name Status Comments Father Mother Sister Social History Tobacco Use Types Packs/Day Years Used Date Smoking Tobacco: Never Smokeless Tobacco: Never Tobacco Cessation:Counseling Given: Not Answered Alcohol Use Standard Drinks/Week Comments Never 0 (1 standard drink = 0.6 oz pur e alcohol) AUDIT-C Answer Date Recorded Q1: How often do you have a drink containing alc ohol? Never 11/06/2021 Average Number of Drinks Not on file 022 Frequency of Binge Drinking Not on file 10/24 Hunger Vital Sign Answer Date Recorded Within the past 12 months, y ou worried that your food would run out before you got the money to buy more. Never true 09/05/20 24 Within the past 12 months, t he food you bought just didn't last and you didn't have money to get more. Never true 09/05/2024 Comments No Sex and Gender Information Value Date Recorded Sex Assigned at Not on file Legal Sex Female 3:59 AM [employer]ODUCTION PATTERN [employer]KER Gender Identity Not on file Sexual Orientation Not on file Obstetrics History Para Term AB IAB SAB Ectopic Multiple Livin g Live Births 3 2 2 1 2 Date Outcome GA Total Labor Labor/2nd/3rd Weight Sex Type Anes PTL Briana A1 A5 Name Clin Term Term AB Last Filed Vital Signs Vital Sign Reading Time Taken Comments Blood Pressure 172/80 09/05/2024 10:33 AM PRODUCTION PATTERN MAKER Pulse 89 09/05/2024 10:33 AM PRODUCTION PATTERN [employer]KER Temperature 36.6 C (97.9 F) 09/05/2024 10:33 AM PRODUCTION PATTERN MAKER Respiratory Rate 16 09/05/2024 10:33 AM PRODUCTION PATTERN MAKER Oxygen Saturation 100% 09/05/2024 10:33 AM PRODUCTION PATTERN MAKER Inhaled Oxygen Concentration - - Weight 66.3 kg (146 lb 3.2 oz) 09/05/2024 10:33 AM PRODUCTION PATTERN [employer]KER Height 157.5 cm (5' 2) 07/23/2024 11:04 AM CDT Body Mass Index 26.74 07/23/2024 11:04 AM CDT Plan of Treatment Scheduled Procedures Name Priority Associated Diagnoses Date/Ti me COLONOSCOPY Colon cancer screening COLONOSCOPY Encounter for screening colonoscopy for [id number] patient Change in bowel habit COLONOSCOPY Screening for colon cancer COLONOSCOPY Encounter for screening colonoscopy Health Maintenance Due Date Last Done Comments Colon Cancer Screening-Colonoscopy 1950 Depression Screening 1950 Zoster Vaccine (1 of 2) 2000 Fall Risk Assessment 05/05/2021 05/05/2020 Well Visit 65+ 10/01/2021 10/01/2020 Pneumococcal vaccine 65+ (2 of 2 - PCV) 03/02/2023 03/02/2022 Osteoporosis Screening-Bone Density Scan 06/22/2024 06/22/2022 Covid-19 Vaccine (4 - 2023-2 5 season) 2024 06/14/2022, 06/23/2021, 06/01/2021 Breast Cancer Screening-Mammogram 02/20/2025 02/21/2024, 08/12/2022, 01/09/2021 Influenza Vaccine (Season Ended) 2025 DTaP/Tdap/Td Vaccine (2 - Td or Tdap) 01/06/2032 01/05/2022 Hepatitis C Screening Completed 07/27/2022 Hepatitis B Screening Completed 11/26/2023 Colon Cancer Screening-FIT Discontinued 12/07/2023 Goals Goal Patient Goal Type Associated Problems Recent Progress Patient-Stated? Author Med Mgmt Goal - Patient will understand importance of following medication regimen and will take appropriate steps to maintain regimen ACO Care Management Omi Cordova, RN Note: Problem: Medication management Interventions: - Assess barriers to medication adherence: Provide coordination of care, education and resources to address these barriers. Include SW in patient's plan of care for resources if needed. - Instruct patient to: Take each medication each day at the times indicated by using a system (list, pill box, etc.). Do not allow prescriptions to or bottles to become empty before requesting refills. Bring all medications to each office visit. Contact physician or CM if they feel they are having side effects from medications (rather than stopping them without telling anyone). [facility] Hypertension Care Plan Chronic Care Management Rosemarie Butler RN Note: Problem: Hypertension Goals: 1. Meet age adjusted blood pressure goals 2. Prevention of complications including eyes, kidneys blood vessels 3. Avoid low blood pressure/passing out 4. Improve medicine access and compliance Strategies: - DASH Diet education - Periodic phone call screening for development of vision changes, pain/fatigue associated with walking, near falls - Periodic phone calls to request blood pressure readings, frequency of missed medication doses, any side affects - Encourage regular MD visits and remind patient of importance of keeping upcoming appointments - Recommend healthy lifestyle strategies and compensatory methods as needed Procedures Procedure Name Priority Date/Time Associated Diagnosis Comments SCREENING MAMMOGRAM BILATERAL W HORACE Schedule Routine, Read Routine (OP Routine) 02/21/2024 10:53 AM CDT Healthcare maintenance Screening mammogram for breast cancer FIT OCCULT BLOOD, FECAL Routine 12/07/2023 4:30 PM PRODUCTION PATTERN MAKER Screening for colon cancer HEPATITIS C ANTIBODY Routine 07/27/2022 12:00 PM CDT High risk medication use DEXA AXIAL SKELETON BONE DENSITY 1 OR MORE SITES Schedule Routine, Read Routine (OP Routine) 06/22/2022 11:16 AM CDT Unspecified menopausal and perimenopausal disorder from Last 3 Months or Most Recently Relevant to Health Maintenance Results * Screening Mammogram Bilateral W Horace (02/21/2024 10:53 AM CDT) Anatomical Region Laterality Modality Breast Bilateral Mammography Narrative 02/23/2024 5:00 PM CDT Mammogram Technique: Bilateral Digital Breast Tomosynthesis, Bilateral C-view 2D Screening mammogram. Views obtained: bilateral craniocaudal and bilateral mediolateral oblique. Computer Aided Detection was performed. Mammogram Findings: The present examination has been compared to prior imaging studies performed at [facility] on 01/09/2021 and 08/12/2022, and at [place], [place] on 03/25/2014. The breasts are heterogeneously dense, which may obscure small masses. There is asymmetry and an area of architectural distortion in the middle outer breast on the craniocaudal view of the left breast. There is no suspicious abnormality in the right breast. Impression: Asymmetry and area of architectural distortion in the left breast requires additional evaluation. Diagnostic mammogram and possible ultrasound of the left breast are recommended at this time. OVERALL FINAL ASSESSMENT: BI-RADS CATEGORY 0: Incomplete: Need additional imaging evaluation. Procedure Note Maryanne Brasher MD - 02/23/2024 Mammogram Technique: Bilateral Digital Breast Tomosynthesis, Bilateral C-view 2D Screening mammogram. Views obtained: bilateral craniocaudal and bilateral mediolateral oblique. Computer Aided Detection was performed. Mammogram Findings: The present examination has been compared to prior imaging studies performed at [facility] on 01/09/2021 and 08/12/2022, and at [place], [place] on 03/25/2014. The breasts are heterogeneously dense, which may obscure small masses. There is asymmetry and an area of architectural distortion in the middle outer breast on the craniocaudal view of the left breast. There is no suspicious abnormality in the right breast. Impression: Asymmetry and area of architectural distortion in the left breastrequires additional evaluation. Diagnostic mammogram and possible ultrasound ofthe left breast are recommended at this time. OVERALL FINAL ASSESSMENT: BI-RADS CATEGORY 0: Incomplete: Need additional imaging evaluation. us Isauro Dent MD IMG MAMMO PROCEDURES Fi nal Result * FIT occult blood, fecal (12/07/2023 4:30 PM PRODUCTION PATTERN MAKER) FIT occult blood, fecal Negative Negative Comment: Collection date/time has been modified to: 16:30:00. Previous collection date/time: 16:14:21. Collection date/time has been modified to: 16:30:00. Previous collection date/time: 16:30:00. This test is performed using the OC-Light S FIT test. The OC-Light S FIT test is an in vitro diagnostic device, a qualitative test designed for the immunochemical detection of human hemoglobin (hHb) in stool specimens. The performance characteristics of this test have been determined by [facility]. Current interpretive data was last revised on 2021 Stool 12/07/2023 4:30 PM PRODUCTION PATTERN MAKER 01/30/2024 4:16 PM CDT Isauro Dent MD LAB BODY FLUIDS AND STO OLS ORDERABLES Edited Result - Final [facility] [address] Department [place] [address] * Hepatitis C antibody (07/27/2022 12:00 PM CDT) Hep C Ab Nonreactive Nonreactive [facility] Comment:Antibodies to HCV no t detected. Does NOT exclude the possibility of recent exposure to HCV. Blood 07/27/2022 12:0 0 PM CDT 07/27/2022 1:29 PM CDT Juan Mckee MD LAB MICROBIOLOGY - GENERAL ORDERABLES Edited Result - Final Performing Organization Address City/[facility] Co de Phone Number [facility] Department [place] [address] * Dexa Axial Skeleton Bone Density 1 or 2 Site (06/22/2022 11:16 AM CDT) Anatomical Region Laterality Modality Body N/A Digital Radiogra phy 06/22/2022 11:3 0 AM CDT Impressions 06/22/2022 12:03 PM CDT 1. The bone mineral density of the lumbar spine is mildly decreased. 2. The bone mineral density of the left femoral neck is normal. 3. The bone mineral density of the left total hip is normal. 4. Overall, the above findings are diagnostic of low bone mass (osteopenia) by WHO criteria. 5. Based on the FRAX fracture risk model, the 10-year probability for major osteoporotic fracture is 3.6% and that for hip fracture is 0.3%. This 10-year fracture risk estimate was calculated using the risk factors noted in the history above, along with the femoral neck bone density. FRAX is intended to help guide treatment decisions in men over age 50 and postmenopausal women with low bone mass (osteopenia). The National Osteoporosis Foundation (NOF) recommends that FDA-approved medical therapies be considered in postmenopausal women and men age 50 years and older with osteoporosis and those with low bone mass whose 10-year fracture probability by FRAX is >= 20% for major osteoporotic fracture or >= 3% for hip fracture. However, all treatment decisions require clinical judgment and consideration of individual patient factors, including patient preferences, comorbidities, previous drug use, risk factors not captured in the FRAX model (e.g., frailty, falls, vitamin D deficiency, increased bone turnover, interval significant decline in bone density) and possible under- or overestimation of fracture risk by FRAX. General comments regarding interpretation of bone density measurements: A) In children, premenopausal woman and males under age 50 not at increased risk for fractures only Z-scores, not T-scores are used to indicate risk. A Z-score above -2.0 is defined as within the expected range for age and Z-score at or less than -2.0 is below the expected range for age. A Z-score below the expected range for age in a patient with recent fractures and/or chronic corticosteroid treatment is consistent with a diagnosis of osteoporosis. B) In post menopausal women and males over 50, comparison of the measured bone mineral density with the average value in young normal subjects (the T-score) has been found to be useful in assessing fracture risk. Fracture risk approximately doubles for each 1.0 standard deviation (SD) in individual's hip or spine bone mineral density is below the average value of young normal subjects. The World Health Organization (WHO) has defined T-scores of -1.0 to -2.5 as diagnostic of low bone mass (OSTEOPENIA), and T-scores of -2.5 or lower to be diagnostic of OSTEOPOROSIS, based on the site of lowest bone density. Note that there will be a change in reporting format and reference databases as patients move from the younger population (group A) to the older population (group B) The National Osteoporosis Foundation (www.nof.org) recommends adequate intake of calcium and vitamin D and regular weight-bearing exercise in all patients. They recommend pharmacologic treatment in postmenopausal women and men age 50 and older presenting with any of the followin) Osteoporosis, after appropriate evaluation to exclude secondary causes. 2) A hip or vertebral (clinical or radiographic) fracture, regardless of the bone density. 3) Low bone mass (Osteopenia) and one or more of: other prior fractures, secondary causes associated with high risk of fracture (such as glucocorticoid use or total immobilization), or computed high risk of fracture (10-yr probability of hip fracture >= 3% or a 10-yr probability of any major osteoporosis-related fracture >= 20% based on the [place].-adapted WHO algorithm), available at http://www.shef.ac.uk/FRAX). Dictated by: Beba Anton MD The radiology attending physician has personally reviewed this study, and had reviewed and/or edited this written report and agrees with it. Electronically signed by: Jayshree Aggarwal M.D. Narrative 06/22/2022 12:03 PM CDT BONE DENSITOMETRY OF THE SPINE AND HIP DATE OF STUDY: 06/22/2022 HISTORY: 72-year-old postmenopausal woman with hysterectomy at age 45. She is being treated with vitamin D. Evaluate bone mineral density. Additional risk factors for fracture: none. FINDINGS (SPINE): The bone mineral density of L1-L4 was assessed by dual-energy x-ray absorptiometry. The average bone mineral density within this region is 0.893 gm/sq-cm. This is 0.1 standard deviations above the mean of the average bone mineral density for age- and gender-matched subjects (the Z-score). It is 1.4 standard deviations below the mean peak bone mineral density in young adults (the T-score). FINDINGS (FEMORAL NECK): The bone mineral density of the left femoral neck was assessed by dual-energy x-ray absorptiometry. The average bone mineral density within the femoral neck region is 0.796 gm/sq-cm. This is 0.4 standard deviations above the mean of the average bone mineral density for age- and gender-matched subjects (the Z-score). It is 0.5 standard deviations below the mean peak bone mineral density in young adults (the T-score). FINDINGS (TOTAL HIP): The bone mineral density of the left hip was assessed by dual-energy x-ray absorptiometry. The average bone mineral density within the total hip region is 0.874 gm/sq-cm. This is 0.2 standard deviations above the mean of the average bone mineral density for age- and gender-matched subjects (the Z-score). It is 0.6 standard deviations below the mean peak bone mineral density in young adults (the T-score). SUMMARY OF CURRENT RESULTS: Region BMD T-score Z-score AP Spine (L1-L4) 0.893 -1.4 0.1 Femoral Neck (Left) 0.796 -0.5 0.4 Total Hip (Left) 0.874 -0.6 0.2 Procedure Note Jayshree Aggarwal MD - 06/22/2022 BONE DENSITOMETRY OF THE SPINE AND HIP DATE OF STUDY: 06/22/2022 HISTORY: 72-year-old postmenopausal woman with hysterectomy at age 45. She is being treated with vitamin D. Evaluate bone mineral density. Additional risk factors for fracture: none. FINDINGS (SPINE): The bone mineral density of L1-L4 was assessed by dual-energy x-ray absorptiometry. The average bone mineral density within this region is 0.893 gm/sq-cm. This is 0.1 standard deviations above the mean of the average bone mineral density for age- and gender-matched subjects (the Z-score). It is 1.4 standard deviations below the mean peak bone mineral density in young adults (the T-score). FINDINGS (FEMORAL NECK): The bone mineral density of the left femoral neck was assessed by dual-energy x-ray absorptiometry. The average bone mineral density within the femoral neck region is 0.796 gm/sq-cm. This is 0.4 standard deviations above the mean of the average bone mineral density for age- and gender-matched subjects (the Z-score). It is 0.5 standard deviations below the mean peak bone mineral density in young adults (the T-score). FINDINGS (TOTAL HIP): The bone mineral density of the left hip was assessed by dual-energy x-ray absorptiometry. The average bone mineral density within the total hip region is 0.874 gm/sq-cm. This is 0.2 standard deviations above the mean of the average bone mineral density for age- and gender-matched subjects (the Z-score). It is 0.6 standard deviations below the mean peak bone mineral density in young adults (the T-score). SUMMARY OF CURRENT RESULTS: Region BMD T-score Z-score AP Spine (L1-L4) 0.893 -1.4 0.1 Femoral Neck (Left) 0.796 -0.5 0.4 Total Hip (Left) 0.874 -0.6 0.2 IMPRESSION: 1. The bone mineral density of the lumbar spine is mildly decreased. 2. The bone mineral density of the left femoral neck is normal. 3. The bone mineral density of the left total hip is normal. 4. Overall, the above findings are diagnostic of low bone mass (osteopenia) by WHO criteria. 5. Based on the FRAX fracture risk model, the 10-year probability for major osteoporotic fracture is 3.6% and that for hip fracture is 0.3%. This 10-year fracture risk estimate was calculated using the risk factors noted in the history above, along with the femoral neck bone density. FRAX is intended to help guide treatment decisions in men over age 50 and postmenopausal women with low bone mass (osteopenia). The National Osteoporosis Foundation (NOF) recommends that FDA-approved medical therapies be considered in postmenopausal women and men age 50 years and older with osteoporosis and those with low bone mass whose 10-year fracture probability by FRAX is >= 20% for major osteoporotic fracture or >= 3% for hip fracture. However, all treatment decisions require clinical judgment and consideration of individual patient factors, including patient preferences, comorbidities, previous drug use, risk factors not captured in the FRAX model (e.g., frailty, falls, vitamin D deficiency, increased bone turnover, interval significant decline in bone density) and possible under- or overestimation of fracture risk by FRAX. General comments regarding interpretation of bone density measurements: A) In children, premenopausal woman and males under age 50 not at increased risk for fractures only Z-scores, not T-scores are used to indicate risk. A Z-score above -2.0 is defined as within the expected range for age and Z-score at or less than -2.0 is below the expected range for age. A Z-score below the expected range for age in a patient with recent fractures and/or chronic corticosteroid treatment is consistent with a diagnosis of osteoporosis. B) In post menopausal women and males over 50, comparison of the measured bone mineral density with the average value in young normal subjects (the T-score) has been found to be useful in assessing fracture risk. Fracture risk approximately doubles for each 1.0 standard deviation (SD) in individual's hip or spine bone mineral density is below the average value of young normal subjects. The World Health Organization (WHO) has defined T-scores of -1.0 to -2.5 as diagnostic of low bone mass (OSTEOPENIA), and T-scores of -2.5 or lower to be diagnostic of OSTEOPOROSIS, based on the site of lowest bone density. Note that there will be a change in reporting format and reference databases as patients move from the younger population (group A) to the older population (group B) The National Osteoporosis Foundation (www.nof.org) recommends adequate intake of calcium and vitamin D and regular weight-bearing exercise in all patients. They recommend pharmacologic treatment in postmenopausal women and men age 50 and older presenting with any of the followin) Osteoporosis, after appropriate evaluation to exclude secondary causes. 2) A hip or vertebral (clinical or radiographic) fracture, regardless of the bone density. 3) Low bone mass (Osteopenia) and one or more of: other prior fractures, secondary causes associated with high risk of fracture (such as glucocorticoid use or total immobilization), or computed high risk of fracture (10-yr probability of hip fracture >= 3% or a 10-yr probability of any major osteoporosis-related fracture >= 20% based on the [place].-adapted WHO algorithm), available at http://www.shef.ac.uk/FRAX). Dictated by: Beba Anton MD The radiology attending physician has personally reviewed this study, and had reviewed and/or edited this written report and agrees with it. Electronically signed by: Jayshree Aggarwal M.D. Adin Grady MD IMG DXA PROCED URES Final Result from Last 3 Months or Most Recently Relevant to Health Maintenance Insurance [facility] MEDICARE ADVANTAGE [facility] MDCR HMO REF [employer] MEDICARE ADVANTAGE [facility] MEDICARE ADVANTAGE Advance Directives For more information, please contact: [phone] * Full Code (Latest Code Status on File) Date Activated Date Inactivated Comments 05/04/2020 1:04 AM 05/05/2020 5:37 PM * Full Code Date Activated Date Inactivated Comments 01/05/2019 1:03 PM 01/09/2019 6:24 PM Care Teams Business Intelligence Manager Relationship Specialty Start Date End Date Clarence Reno MD [address] [facility] [id number] [place] [address] PCP - General 04/14/24
--- OUTSIDE RECORDS SUMMARY | 2025-04-08 14:22 | XMS_ITS | Clinical Summary ---
Author Organization [facility] Address [address] [place] [address] Care Team Providers Care Weights And Measures Inspector Name Role Phone Unavailable Primary Care Provider Unavailabl e Allergies No known active allergies Medications NON FORMULARYIndication s:Avila Juice Activ e NON FORMULARYIndication s:Apple cider vinegar with water A ctive EQ ASPIRIN ADULT LOW DOSE 81 MG tablet 1 Active vitamin E 400 UNIT capsule 400 Units daily. Pt states she is taking 85mg of this Active vitamin D3, cholecalciferol, 10 MCG (400 UNIT) tablet Take 400 Units by mouth daily. Active valACYclovir (VALTREX) 1 g tabletIndications:H erpes zoster without complication Take 1 tablet (1,000 mg total) by mouth 3 (three) times daily. 21 tablet 2 Active cyclobenzaprine 5 MG tabletIndications:C hronic bilateral low back pain with bilateral sciatica Take 1 tablet (5 mg total) by mouth nightly. 30 tablet 2 2 Active amLODIPine 10 MG tabletIndications:P rimary hypertension Take 1 tablet (10 mg total) by mouth daily. 90 tablet 1 2 Active gabapentin 100 MG capsuleIndications: Chronic bilateral low back pain with bilateral sciatica Take 2 capsules (200 mg total) by mouth nightly at bedtime. 180 capsule 1 2 Active traMADol 50 MG tabletIndications:C hronic Pain Take 1 tablet (50 mg total) by mouth 2 (two) times daily as needed for Pain. Indications: Chronic Pain 60 tablet 2 Active lisinopril-hydroCHL OROthiazide 20-12.5 MG tabletIndications:P rimary hypertension Take 2 tablets by mouth daily. 100 tablet 1 2 Active atorvastatin 80 MG tabletIndications:A CS (acute coronary syndrome) ([facility]),Mixed hyperlipidemia Take 1 tablet (80 mg total) by mouth nightly at bedtime. 100 tablet 1 2 Active ezetimibe 10 MG tabletIndications:A CS (acute coronary syndrome) ([facility]),Mixed hyperlipidemia Take 1 tablet (10 mg total) by mouth daily. 90 tablet 3 2 Active Active Problems Problem Noted Date Diagnosed Date Chronic bilateral low back pain with sciatica Coronary artery disease invo lving [place] tribe coronary artery of [place] heart without angina pectoris 06/23/2020 SVT (supraventricular tachycardia) ([facility]) 07/2020 Overview (04/02/2022): Had 2nd episode of SVT in mid [...] Encouraged to keep EP appointment on 06/23 She has since been doing well off medications and asymptomatic; referred to cardiology to establish care Assessment & Plan (01/05/2022 5:40 AM CDT): Cannot tolerate beta-triston. Previously was following with electrophysiology and plans for ablation however patient did not keep appointment. Currently on amlodipine 10 mg daily and lisinopril 40 mg daily. Gastric diverticulum without complication 2018 NSTEMI (non-ST elevated myoc ardial infarction) ([facility]) 01/05/2019 Assessment & Plan (01/05/2022 5:39 AM CDT): Stable. Noted prior history of NSTEMI and SVT. Getting her records from cardio at [facility]. Continue with aspirin 81 mg daily, continue with atorvastatin 80 mg daily. On amlodipine 10 mg daily, lisinopril 40 mg daily and atorvastatin 80 mg daily. Currently not on a beta-triston due to intolerance. ACS (acute coronary syndrome) ([facility]) 01/02/2019 Assessment & Plan (01/05/2022 5:38 AM CDT): [place]. Noted prior history of NSTEMI and SVT. Getting her records from cardio at [facility]. Continue with aspirin 81 mg daily, continue with atorvastatin 80 mg daily. Currently not on a beta-triston due to intolerance. Hypotension 01/02/2019 Hypertension 01/02/2019 Mixed hyperlipidemia 01/02/2019 Body mass index 25.0-25.9, adult 01/02/2019 Non compliance with medical treatment Resolved Problems Problem Noted Date Diagnosed Date Resolved Date Hepatitis B carrier ([facility]) 01/02/2019 01/09/2019 Immunizations Immunization Administration Dates Next Due Pneumococcal (Pneumovax 23) 03/02/2022 Tdap (Adacel) 01/05/2022 Family History Medical History Relation Comments Heart Disease Father Hypertension Mother Kidney Disease Mother Cancer Sister 1 Relation Status Comments Daughter Alive Father Mother Sister 1 Sister 2 Alive Son Alive Social History Tobacco Use Types Packs/Day Years Used Date Smoking Tobacco: Never Smokeless Tobacco: Never Tobacco Cessation:Counseling Given: Yes Comments:counseled by Dr Jay Alcohol Use Standard Drinks/Week Comments No 0 (1 standard drink = 0.6 oz pur e alcohol) AUDIT-C Answer Date Recorded Frequency of Alcohol Consumption Never 01/01/2019 Average Number of Drinks Not on file 019 Frequency of Binge Drinking Not on file 12/22 PHQ-2 Answer Date Recorded PHQ-2 Score - If the patient scores above 3, please move on to questions 3-9 0 12/07/2021 Comments No Sex and Gender Information Value Date Recorded Sex Assigned at Not on file Legal Sex Female 6:13 PM CDT Gender Identity Not on file Sexual Orientation Not on file Last Filed Vital Signs Vital Sign Reading Time Taken Comments Blood Pressure 138/72 04/02/2022 7:03 AM CDT Pulse 84 04/02/2022 7:03 AM CDT Temperature 36.4 C (97.6 F) 04/02/2022 7:03 AM CDT Respiratory Rate 16 04/02/2022 7:03 AM CDT Oxygen Saturation 100% 04/02/2022 7:03 AM CDT Inhaled Oxygen Concentration - - Weight 70.3 kg (155 lb) 04/02/2022 7:03 AM CDT Height 157.5 cm (5' 2) 04/02/2022 7:03 AM CDT Body Mass Index 28.35 04/02/2022 7:03 AM CDT Plan of Treatment Health Maintenance Due Date Last Done Comments ASCVD Statin 1950 Colorectal Cancer Screening Colonoscopy (10 Years) 1950 Mammogram Screening 1990 Zoster Vaccines (1 of 2) 2000 RSV Immunization or 60+ Years (1 - Risk 60-74 years 1-dose series) 2010 Annual Medicare Wellness Visit 2015 Dexa Scan (General) 2015 ASCVD LDL 12/07/2022 12/07/2021 Pneumococcal Vaccine: 50+ Years (2 of 2 - PCV) 03/02/2023 03/02/2022 COVID-19 Vaccine (3 - 2023-2 5 season) 2024 06/23/2021, 06/01/2021 PHQ-2 (Physician Pierron) 10/24/2024 DTaP, Tdap and Td Vaccines ( 2 - Td or Tdap) 01/06/2032 01/05/2022 Hepatitis C Completed 12/07/2021, 01/04/2019 Meningococcal B Vaccine Aged Out No l onger eligible based on patient's age to complete this topic Meningococcal Vaccine Aged Out No efra manuel eligible based on patient's age to complete this topic RSV Immunizations Under 20 Months Aged Out No longer eligible b ased on patient's age to complete this topic Procedures Procedure Name Priority Date/Time Associated Diagnosis Comments LIPID PANEL Routine 12/07/2021 11:24 AM STEEL HANGER Annual physical exam Encounter for medical examination to establish care General medical exam Mixed hyperlipidemia Primary hypertension ACS (acute coronary syndrome) HEPATITIS C ANTIBODY Routine 12/07/2021 11:24 AM STEEL HANGER Annual physical exam Encounter for medical examination to establish care General medical exam Encounter for hepatitis C screening test for low risk patient from Last 3 Months or Most Recently Relevant to Health Maintenance Results * (ABNORMAL) LIPID PANEL (12/07/2021 11:24 AM STEEL HANGER) Pathologist [facility] CHOLESTEROL 243(H) <200 MG/DL 12/07/2021 9:27 PM STEEL HANGER [facility] TRIGLYCERIDES 107 <150 MG/DL 12/07/2021 9:27 PM STEEL HANGER [facility] HDL 65 >40 MG/DL 12/07/2021 9:27 PM STEEL HANGER [facility] LDL-C 157(H) <100 MG/DL 12/07/2021 9:27 PM STEEL HANGER [facility] VLDL CALCULATION 21 5 - 28 MG/DL 12/07/2021 9:27 PM [facility] CHOL/HDL RATIO 3.7 0.0 - 4.0 12/07/2021 9:27 PM [facility] LDL/HDL 2.4(H) 0.41 - 2.13 12/07/2021 9:27 PM [facility] NON HDL CHOLESTEROL 178(H) <140 MG/DL 12/07/2021 9:27 PM [facility] 12/07/2021 11:2 4 AM STEEL HANGER Lali Jay MD LABORATORY Final Result [facility] [address] [place] [address], * HEPATITIS C ANTIBODY (12/07/2021 11:24 AM STEEL HANGER) HEPATITIS C AB NON-REACTI VE NON-REACT TERRI 12/08/2021 7:47 PM STEEL HANGER [facility] Comment: ANTIBODIES TO HCV NOT DETECTED. DOES NOT EXCLUDE THE POSSIBILITY OF EXPOSURE TO HCV. 12/07/2021 11:2 4 AM STEEL HANGER Lali Jay MD LABORATORY Final Result [facility] [address] [place] [address], [id number] from Last 3 Months or Most Recently Relevant to Health Maintenance Insurance Advance Directives * Full Code (Latest Code Status on File) Date Activated Date Inactivated Comments 01/02/2019 1:29 PM 01/04/2019 8:09 PM * Full Code Date Activated Date Inactivated Comments 01/02/2019 8:22 AM 01/02/2019 1:29 PM
--- OUTSIDE RECORDS SUMMARY | 2025-04-08 14:23 | XMS_ITS | Referral Summary ---
Author Organization [facility] Address [address] [place] [address] Care Team Providers Care Post Closing Specialist Name Role Phone Clarence Reno MD Primary Care Provider [phone] Encounters Date Type Department Care Team Description 03/07/2025 Telephone [facility] [address] [facility] [address] [place] [address] Clarence Reno MD from Last 3 Months Allergies No known active allergies Medications cholecalciferol (VITAMIN D-3) 5,000 unit tablet Take 1 tablet (5,000 Units total) by mouth daily Active vitamin E (AQUASOL E) 400 unit capsule 1 capsule (400 Units total) daily Active miconazole 2 % powderIndication s:Rash Apply topically as needed for itching 70 g 2 07/27/20 22 Active aspirin 81 mg enteric coated tabletIndication s:Coronary artery disease involving manzanita coronary artery of manzanita heart without angina pectoris Take 1 tablet [...] palpated. Assessment & Plan (09/05/2024 1:45 PM DIRECTOR SALES AND TRADE MARKETING): - Internal hemorrhoid palpated at anal verge [...] time. Assessment & Plan (11/24/2023 4:51 PM DIRECTOR SALES AND TRADE MARKETING): XR L foot and great toe revealing minimally displaced fracture at base of 1st phalanx. - patient to be reevaluated in clinic for octavio taping education and bracing Assessment & Plan (11/24/2023 11:27 AM DIRECTOR SALES AND TRADE MARKETING): X-ray which showed minimally displaced fracture at base of 1st phalanx. Exam unrevealing. - Return in 4 weeks for recheck - Order DME of post-op shoe - Octavio-wrap performed today Fall 11/24/2023 Assessment & Plan (11/24/2023 4:50 PM DIRECTOR SALES AND TRADE MARKETING): FRANCO on 11/04/23, now w/ L hand [...] 07/27/2022 Assessment & Plan (11/24/2023 4:31 PM DIRECTOR SALES AND TRADE MARKETING): LDL remains quite elevated despite atorva 80. Last LDL 139, HDL 55, Tg 174. - continue atorva 80 - add zetia 10mg daily Assessment & Plan (10/26/2022 7:47 AM DIRECTOR SALES AND TRADE MARKETING): Continue atorva 80 - repeat lipid panel w/ labs in 2 wks Osteopenia 07/27/2022 Overview (07/27/2022): Patient asked about DEXA scan result and the diagnosis of osteopenia was explained. -Check vitamin D level and decide on supplementation Change in bowel habit 05/27/2022 Unspecified menopausal and perimenopausal disord er 05/27/2022 Sciatica 11/08/2021 Assessment & Plan (11/08/2021 9:36 PM DIRECTOR SALES AND TRADE MARKETING): Presenting with 5 days of L buttock [...] return precautions Coronary artery disease invo lving manzanita coronary artery of manzanita heart without angina pectoris 06/23/2020 Assessment & Plan (11/24/2023 3:41 PM DIRECTOR SALES AND TRADE MARKETING): Hx CAD with prior NSTEMI, medically managed. [...] screening: not sexually active, not indicated - CONTAINER FINISHING INSPECTOR: no contraception or hormone therapy indicated, risks>benefits - Fit-test (11/2023): neg - mammogram (02/2024): BIRADS1, consider mammogram in 02/2025 - Bone density: - COVID: obtained booster 06/14/22 Assessment & Plan (09/05/2024 1:45 PM DIRECTOR SALES AND TRADE MARKETING): Influenza vaccination received at outside pharmacy COVID [...] today due to COVID fears Pap: Requested single stayer operator referral; previously referred DEXA: Never; deferred today due to COVID fears A1c: A1c 4.6% 04/2019 Lipid: LDL 93 04/2019; on atorvastatin 80mg HIV: Never tested; discuss at next in-person visit HCV: ([id number]) never tested; discuss at next in-person visit Immunizations: Tetanus booster >10 years ago; had never had pneumococcal vaccination; discuss vaccinations at next in-person visit Assessment & Plan (03/03/2020 10:55 AM CDT): Colonoscopy: Never performed; ordered today Mammogram: Several years ago; ordered today Pap: Requested single stayer operator referral; referral placed DEXA: Never; order previously placed and pending A1c: A1c 4.6% 04/2019 Lipid: LDL 93 04/2019; on atorvastatin 80mg HIV: Never tested; discuss at next in-person visit HCV: ([id number]) never tested; discuss at next in-person visit Immunizations: Tetanus booster >10 years ago; had never had pneumococcal vaccination; discuss vaccinations at next in-person visit SVT (supraventricular tachycardia) ([facility]) 07/2020 Assessment & Plan (11/24/2023 4:35 PM DIRECTOR SALES AND TRADE MARKETING): Hx recurrent SVT though asymptomatic today and without recent occurrences. Previously established with EP, had been scheduled for ablation but ultimately declined. Intolerant to BB and normal HR today. - f/u cards PRN Assessment & Plan (01/12/2023 7:31 AM CDT): -contact Dr. Peralta re rescheduling ablation Assessment & Plan (10/26/2022 7:46 AM DIRECTOR SALES AND TRADE MARKETING): Symptomatically well controlled on metop XL 25mg BID. Ablation scheduled for 11/02/22, though pt unsure if she will go through with it. - encouraged pt to discuss concerns with electronic transaction implementer and emphasized indications and importance of procedure Assessment & Plan (09/06/2022 10:07 AM DIRECTOR SALES AND TRADE MARKETING): Asymptomatic on metop succinate 25mg BID. Rates [...] managed by her PCP Dr. Sexton at [facility]. 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 Assessment & Plan (09/05/2024 1:46 PM DIRECTOR SALES AND TRADE MARKETING): - patient needs more adequate BP control [...] 40 Assessment & Plan (11/24/2023 4:34 PM DIRECTOR SALES AND TRADE MARKETING): Above goal last visit, though not compliant with medications. Chronically elevated and educated on importance of medication compliance. Not interested in adding new medications today. - continue amlodipine 10mg daily and lisinopril 40mg daily - encouraged medication compliance - CBC, CMP today Assessment & Plan (11/24/2023 11:26 AM DIRECTOR SALES AND TRADE MARKETING): Above goal today. Patient reports missed medications. [...] spironolactone Assessment & Plan (10/26/2022 7:45 AM DIRECTOR SALES AND TRADE MARKETING): Compliant w/ amlo 10, lisinopril 40. Previously [...] initiation Assessment & Plan (09/06/2022 10:06 AM DIRECTOR SALES AND TRADE MARKETING): Above goal 150s/70s, rechecked 130s/70s. 130-140 systolics [...] diuresis) Assessment & Plan (11/08/2021 9:31 PM DIRECTOR SALES AND TRADE MARKETING): Hypertensive at this visit and has been [...] metoprolol Assessment & Plan (12/03/2019 12:40 PM DIRECTOR SALES AND TRADE MARKETING): Less controlled today, continue medications today without [...] 01/05/2019 Assessment & Plan (11/24/2023 4:33 PM DIRECTOR SALES AND TRADE MARKETING): Hx medically managed NSTEMI in 2019. Multiple [...] daily Assessment & Plan (12/03/2019 12:39 PM DIRECTOR SALES AND TRADE MARKETING): Medically managed December 2018. Left heart catheterization [...] Date Encounter for screening colo noscopy for [id number] patient 05/27/2022 11/24/2023 Encounter for screening mamm ogram for malignant neoplasm of breast 05/27/2022 07/27/2022 Dysuria 11/08/2021 07/27/2022 Assessment & Plan (11/08/2021 9:32 PM DIRECTOR SALES AND TRADE MARKETING): Most consistent with simple cystitis; dysuria, suprapubic [...] and 01-04-19). To compare. Place on telemetry. Immunizations Immunization Administration Dates Next Due Pfizer SARS-CoV-2 Monovalent Vaccination (12+ Yrs) HERRING-READY TO USE 06/14/2022 Social History Tobacco Use Types Packs/Day Years [...] on file Legal Sex Female 3:59 AM DIRECTOR SALES AND TRADE MARKETING Gender Identity Not on file Sexual Orientation Not on file Last Filed Vital Signs Vital Sign Reading Time Taken Comments Blood Pressure 172/80 09/05/2024 10:33 AM DIRECTOR SALES AND TRADE MARKETING Pulse 89 09/05/2024 10:33 AM DIRECTOR SALES AND TRADE MARKETING Temperature 36.6 C (97.9 F) 09/05/2024 10:33 AM DIRECTOR SALES AND TRADE MARKETING Respiratory Rate 16 09/05/2024 10:33 AM DIRECTOR SALES AND TRADE MARKETING Oxygen Saturation 100% 09/05/2024 10:33 AM DIRECTOR SALES AND TRADE MARKETING Inhaled Oxygen Concentration - - Weight 66.3 kg (146 lb 3.2 oz) 09/05/2024 10:33 AM DIRECTOR SALES AND TRADE MARKETING Height 157.5 cm (5' 2) 07/23/2024 11:04 AM CDT Body Mass Index 26.74 07/23/2024 11:04 AM CDT Plan of Treatment Scheduled Procedures Name Priority Associated Diagnoses Date/Ti me COLONOSCOPY Colon cancer screening COLONOSCOPY Encounter for screening colonoscopy for [id number] patient Change in bowel habit COLONOSCOPY Screening for colon cancer COLONOSCOPY Encounter for screening colonoscopy Goals Goal Patient Goal Type Associated Problems Recent Progress Patient-Stated? Author Med Mgmt Goal - Patient will understand importance of following medication regimen and will take appropriate steps to maintain regimen ACO Care Management No Omi Johnston, RN Note: Problem: Medication management Interventions: - [...] (rather than stopping them without telling anyone). CCM Hypertension Care Plan Chronic Care Management Rosemarie [...] OCCULT BLOOD, FECAL Routine 12/07/2023 4:30 PM DIRECTOR SALES AND TRADE MARKETING Screening for colon cancer HEPATITIS C ANTIBODY [...] compared to prior imaging studies performed at [facility] on 01/09/2021 and 08/12/2022, and at [place], [place] on 03/25/2014. The breasts are heterogeneously [...] compared to prior imaging studies performed at [facility] on 01/09/2021 and 08/12/2022, and at [place], [place] on 03/25/2014. The breasts are heterogeneously [...] CATEGORY 0: Incomplete: Need additional imaging evaluation. Isauro Dent MD IMG MAMMO PROCEDURES Fi nal Result * FIT occult blood, fecal (12/07/2023 4:30 PM DIRECTOR SALES AND TRADE MARKETING) FIT occult blood, fecal Negative Negative Comment: [...] of this test have been determined by [facility]. Current interpretive data was last revised on 2021 Stool 12/07/2023 4:30 PM DIRECTOR SALES AND TRADE MARKETING 01/30/2024 4:16 PM CDT Isauro Dent MD LAB BODY FLUIDS AND STO OLS ORDERABLES Edited Result - Final [facility] [address] Department [place] [address] * Hepatitis C antibody (07/27/2022 12:00 PM CDT) Pathologist [facility] Hep C Ab Nonreactive Nonreactive [facility] Comment:Antibodies to HCV no t detected. Does NOT exclude the possibility of recent exposure to HCV. Blood 07/27/2022 12:0 0 PM CDT 07/27/2022 1:29 PM CDT Result [facility] Juan Mckee MD LAB MICROBIOLOGY - GENERAL ORDERABLES Edited Result - Final [facility] [address] [facility] [place] [address] * Dexa Axial Skeleton Bone Density 1 [...] Total Hip (Left) 0.874 -0.6 0.2 Procedure Jayshree Orr MD - 06/22/2022 BONE DENSITOMETRY OF THE [...] by: Jayshree Aggarwal M.D. Adin Grady MD IM DXA PROCED URES Final Result from Last 3 Months or Most Recently Relevant to Health Maintenance Insurance [facility] MEDICARE [facility] Address: [address] [place], [place] [id number] [facility] Address: [address] MEDICARE ADVANTAGE [facility] Address: [address] [place] [address] [employer] MEDICARE ADVANTAGE Advance Directives For more information, please contact: [phone] * Full Code (Latest Code Status on File) Date Activated Date Inactivated Comments 05/04/2020 1:04 AM 05/05/2020 5:37 PM * Full Code Date Activated Date Inactivated Comments 01/05/2019 1:03 PM 01/09/2019 6:24 PM Care Teams Post Closing Specialist Relationship Specialty Start Date End Date Clarence Reno MD [address] [facility] [id number] [place] [address] PCP - General 04/14/24
--- OUTSIDE RECORDS SUMMARY | 2025-04-08 14:23 | XMS_ITS | Continuity of Care Document ---
Author Organization [facility] Address [address] [place] [address] [place] [address] Phone Care Team Providers Care Oxide Furnace Tender Name Role Phone Chris Sexton MD Unavailable Unavailable Allergies, Adverse Reactions, Alerts Substance Reaction Status Criticality No Known Allergies Active No Inform ation Procedures Procedure Date OFFICE/OUTPATIENT VISIT, EST OFFICE/OUTPATIENT VISIT, EST PREV VISIT, NEW, AGE 40-64 Advance Directives Directive Yes / No Effective Date File Name No Information Encounters Encounter Description Practice Location Reason(s) For Visit Diagnoses Date Provider Providers Copied on Encounter OFFICE/OUTPA TIENT VISIT, [facility], [address] [place], [id number], tel:[phone] [facility] hep B (chief complaint) HLP (chief complaint) Dietary surveillance and counselingViral hepatitis b without mention of hepatic coma, acute or unspecified, without mention of hepatitis deltaOther and unspecified hyperlipidemiaOther chronic nonalcoholic liver diseasePersonal history of noncompliance with medical treatment, presenting hazards to health Dec-0 2-201 5 Darshan Perez. [address] [place] [place], [id number] , [place]. tel:[phone] Referring Provider: Chris Sexton, [address], [place], [place], [id number]. tel:[phone] OFFICE/OUTPA TIENT VISIT, [facility], [address] [place], [id number], [place] tel:[phone] [facility] HSV (chief complaint) Hep B (chief complaint) HLP (chief complaint) Dietary surveillance and counselingGenital herpes, unspecifiedViral hepatitis b without mention of hepatic coma, acute or unspecified, without mention of hepatitis deltaOther and unspecified hyperlipidemia 5 Darshan Perez. [address], [place], [place], [id number] , . tel:[phone] Referring Provider: Chris Sexton [address], [place], [place], [id number]. tel:[phone] PREV VISIT, NEW, AGE 40-64 [facility], [address], [place], [place], [id number], [place] tel:[phone] [facility] Medicine Physical (chief complaint) Dietary surveillance and counselingRoutine Medical ExamRoutine Medical Exam 4 Darshan [address], [place], [place], [id number] , [place]. tel:[phone] Family History Family Member Type Diagnosis Age At Onset Mother Problem (finding) Coronary artery disease 66 Sister Problem (finding) Hypertension Father Problem (finding) Stroke 68 Payers Payer name Insurance type Covered libertarian ID Authoriza tion(s) No Information Social History Type Description Quantity Date Captured Comments Alcohol Use Details No Caffeine Use Details Unknown Tobacco Use Status No Information Smoking Status Never smoker Sex Female Vital Signs Date / Time: Height Weight BMI Pulse Rate Blood Pressure Temperature Respiratory Rate Body Surface Area Head Circumference BMI percentile Pulse Ox Inhaled Ox 9:31 AM 62.00 in 156.00 lbs 28.5 3 kg/m eter (2) 78 /min 122/85 mm[Hg] 96.6 F 16 /min Chief Complaint And Reason For Visit From encounter dated '12/23/2014 08:30'. hep B (chief complaint) HLP (chief complaint) Plan Of Treatment Date Type Action Status Referral Ordered: DXA BONE DENSITY, AXIAL ordered Referral Ordered: US EXAM, ABDOM, COMPLETE ordered Referral Ordered: COLONOSCOPY AND BIOPSY ordered History Of Present Illness Encounter Date Complaint History Of Prese nt Illness No Information Instructions Date Instruction Additional Infor yadira Physical activity counseling Rel ated to Dietary surveillance counseling Decrease caloric intake Related to Dietary surveillance counseling Physical activity counseling Rel ated to Dietary surveillance counseling Decrease caloric intake Related to Dietary surveillance counseling Physical activity counseling Rel ated to Dietary surveillance counseling Decrease caloric intake Related to Dietary surveillance counseling Assessments Type Assessment Date No Information Mental Status Date Cognitive Assessment Orientation - [place] ed to time, place, person, situation.
--- OUTSIDE RECORDS SUMMARY | 2025-04-08 14:23 | XMS_ITS | Encounter Summary ---
Author Organization [facility] Address [address] [place] [address] Care Team Providers Care Enrober Name Role Phone Shanell Rodriguez MD Primary Care Provider [phone] Lali Jay MD Primary Care Provider [phone] Encounter Details Date Type Department Care Team (Late st Contact Info) Description 01/15/2019 Hospital Follow-up Call [facility] Telemetry Unit A [facility], [place], [place] [address] Maribel Qureshi Social History Tobacco Use Types Packs/Day Years Used Date Smoking Tobacco: Never Smokeless Tobacco: Never Alcohol Use Standard Drinks/Week Comments No 0 (1 standard drink = 0.6 oz pur e alcohol) AUDIT-C Answer Date Recorded Frequency of Alcohol Consumption Never 01/01/2019 Average Number of Drinks Not on file 019 Frequency of Binge Drinking Not on file 12/22 Comments No Sex and Gender Information Value Date Recorded Sex Assigned at Not on file Legal Sex Female 6:13 PM CDT Gender Identity Not on file Sexual Orientation Not on file documented as of this encounter Functional Status * RETIRED Are you deaf or do you have serious difficulty hearing Answer Date of Assessment Author Status No 01/03/2019 2:27 AM CDT Activ e * RETIRED Are you blind or do you have serious difficulty seeing, even when wearing glasses? Answer Date of Assessment Author Status No 01/03/2019 2:27 AM CDT Activ e * Do you have serious difficulty walking or climbing stairs? Answer Date of Assessment Author Status No 01/03/2019 2:27 AM Lucy Aaron RN Active * Do you have difficulty dressing or bathing? Answer Date of Assessment Author Status No 01/03/2019 2:27 AM Lucy Aaron RN Active * Because of a physical, mental, or emotional condition, do you have difficulty doing errands alone such as visiting a doctor's office or shopping? Answer Date of Assessment Author Status No 01/03/2019 2:27 AM Lucy Aaron RN Active documented as of this encounter Mental Status * Because of a physical, mental, or emotional condition, do you have serious difficulty concentrating, remembering, or making decisions? Answer Entry Date Author Status No 01/03/2019 2:27 AM Lucy Aaron RN Active documented in this encounter Plan of Treatment Not on file documented as of this encounter Visit Diagnoses Not on filedocumented in this encounter Care Teams Enrober Relationship Specialty Start Date End Date Shanell Rodriguez MD [address] [address] PCP - General 03/18/17 12/06/21 Lali Jay MD [address] [address] PCP - General INTERNAL MEDICINE 12/07/21 05/27/22 documented as of this encounter
--- OUTSIDE RECORDS SUMMARY | 2025-04-08 14:23 | XMS_ITS | Encounter Summary ---
Author Organization [facility] Address [address] [place] [address] Care Team Providers Care Admissions Counselor Name Role Phone Isauro Dent MD Primary Care Provider Clarence Reno MD Primary Care Provider [phone] Encounter Details Date Type Department Care Team (Late st Contact Info) Description 02/08/2023 Telephone [facility] [address] [facility] [address] [place] [address] Isauro Dent MD [address] [facility] [address] [place], [place] [id number] Social History Tobacco Use Types Packs/Day Years Used Date Smoking Tobacco: Never Smokeless Tobacco: Never Alcohol Use Standard Drinks/Week Comments Never 0 (1 standard drink = 0.6 oz pur e alcohol) AUDIT-C Answer Date Recorded Q1: How often do you have a drink containing alc ohol? Never 11/06/2021 Average Number of Drinks Not on file 022 Frequency of Binge Drinking Not on file 10/24 Comments No Sex and Gender Information Value Date Recorded Sex Assigned at Not on file Legal Sex Female 3:59 AM TRANSACTIONAL ATTORNEY Gender Identity Not on file Sexual Orientation Not on file documented as of this encounter Plan of Treatment Scheduled Procedures Name Priority Associated Diagnoses Date/Ti me COLONOSCOPY Colon cancer screening COLONOSCOPY Encounter for screening colonoscopy for cgi-awve-piiu patient Change in bowel habit COLONOSCOPY Screening for colon cancer COLONOSCOPY Encounter for screening colonoscopy documented as of this encounter Goals Goal Patient Goal Type Associated Problems [...] (rather than stopping them without telling anyone). [facility] Hypertension Care Plan Chronic Care [...] lifestyle strategies and compensatory methods as needed documented as of this encounter Visit Diagnoses Not on filedocumented in this encounter Care Teams Admissions Counselor Relationship Specialty Start Date End Date Isauro Dent MD PCP - General Internal Medicine 05/03/22 04/13/24 Clarence Reno MD [address] [facility] [id number] [place] [address] PCP - General 04/14/24 documented as of this encounter
--- OUTSIDE RECORDS SUMMARY | 2025-04-08 14:23 | XMS_ITS | Continuity of Care Document ---
Author Organization [facility] Address [address] [place] [address] Phone Care Team Providers Care Truck Leasing Manager Name Role Phone Unavailable Unavailable Unavailable Medications Medication Instructions Dosage Effective Dates (start - stop) Status Comments Tylenol-Codeine #3 300 mg-30 mg Tab take 1 tablet by ORAL route every 6 hours as needed - Active Procedures Procedure Date Periapical first film Periapical ea add Extraction erupted tooth or exposed root Advance Directives Directive Yes / No Effective Date File Name No Information Encounters Encounter Description Practice Location Reason(s) For Visit Diagnoses Date Provider Providers Copied on Encounter [facility] , [address], [place], [place], [id number], [place] tel:[phone] [facility] No Information No Information Family History Family Member Type Diagnosis Age At Onset No Information Payers Payer name Insurance type Covered alliance party ID Authoriza tion(s) No Information Social History Type Description Quantity Date Captured Comments Sex Female Smoking Status No Information Chief Complaint And Reason For Visit No Information Reason For Referral Reason For Referral No Information History Of Present Illness Encounter Date Complaint History Of Prese nt Illness No Information Functional Status Date Functional Assessmen t No Information Instructions Date Instruction Additional Infor mation No Information Assessments Type Assessment Date No Information Patient Care Teams Name Effective Dates (start - stop) Status Members No Information
--- OUTSIDE RECORDS SUMMARY | 2025-04-08 14:23 | XMS_ITS | Clinical Summary ---
Author Organization [facility] Address [address] [place] [address] Care Team Providers Care Hob Grinder Name Role Phone Unavailable Primary Care Provider Unavailabl e Source Comments [facility],non-owned Affiliates and Associated Physician Practices is amultiple site organization consisting of ambulatory clinics and hospital sitesin [place] and [place]. This disclosure is being madepursuant to the Care Everywhere program and may not contain all information available regarding this patient. Last updated 18.[facility] Allergies No known active allergies Medications * Be aware that medications may not be up to date on this document. Alwaysverify current medications with the patient. lisinopril (PRINIVIL; ZESTRIL) 40 MG tablet Take 40 mg by mouth once daily Active aspirin (ASPIRIN) 81 MG chew tablet Take 81 mg by mouth once daily Active atorvastatin (LIPITOR) 80 MG tablet Take 80 mg by mouth at bedtime Active amLODIPine (NORVASC) 10 MG tablet Take 10 mg by mouth once daily Active Active Problems Problem Noted Date Diagnosed Date Syncope and collapse 11/18/2019 Tachycardia 11/18/2019 Social History Tobacco Use Types Packs/Day Years Used Date Smoking Tobacco: Never Smokeless Tobacco: Never Alcohol Use Standard Drinks/Week Comments Never 0 (1 standard drink = 0.6 oz pur e alcohol) AUDIT-C Answer Date Recorded Frequency of Alcohol Consumption Never 11/18/2019 Average Number of Drinks Not on file 020 Frequency of Binge Drinking Not on file 10/25 Comments Unknown Sex and Gender Information Value Date Recorded Sex Assigned at Not on file Legal Sex Female 12:20 PM PRINT PRODUCTION COORDINATOR Gender Identity Not on file Sexual Orientation Not on file Last Filed Vital Signs Vital Sign Reading Time Taken Comments Blood Pressure 157/79 11/20/2019 12:57 PM PRINT PRODUCTION COORDINATOR Pulse 75 11/20/2019 12:57 PM PRINT PRODUCTION COORDINATOR Temperature 36.6 C (97.9 F) 11/20/2019 12:57 PM PRINT PRODUCTION COORDINATOR Respiratory Rate 20 11/20/2019 12:57 PM PRINT PRODUCTION COORDINATOR Oxygen Saturation 100% 11/20/2019 12:57 PM PRINT PRODUCTION COORDINATOR Inhaled Oxygen Concentration - - Weight 62.6 kg (138 lb) 11/18/2019 12:32 PM PRINT PRODUCTION COORDINATOR Height 157.5 cm (5' 2) 11/18/2019 12:32 PM PRINT PRODUCTION COORDINATOR Body Mass Index 25.24 11/18/2019 12:32 PM PRINT PRODUCTION COORDINATOR Plan of Treatment Health Maintenance Due Date Last Done Comments BONE DENSITY TESTING 1950 COLOGUARD (AGES 45-75) - COL ON CA SCREENING 1950 COLON MONITORING 1950 COLONOSCOPY - COLON CA SCREENING 1950 CT COLONOGRAPHY - COLON CA SCREENING 1950 Colorectal Cancer Screening 1950 FIT - COLON CA SCREENING 1950 FLEX SIG - COLON CA SCREENING 1950 MAMMOGRAM 1950 DTAP/TDAP/TD VACCINES (1 - Tdap) 1969 PNEUMOCOCCAL VACCINE 50+ (1 of 1 - PCV) 2000 ZOSTER VACCINE (1 of 2) 2000 COVID-19 VACCINE ( - 2023-2 5 season) 2024 DEPRESSION SCREENING 10/24/2024 Respiratory Syncytial Virus (RSV) Vaccine Pt: or over 60 yrs (1 - 1-dose 75+ series) 2025 INFLUENZA VACCINE (Season Ended) 2025 HEPATITIS C SCREENING Completed 12/07/2021 , 01/04/2019 HEPATITIS B VACCINE Aged Out No longe r eligible based on patient's age to complete this topic HIB VACCINE Aged Out No longer eligi ble based on patient's age to complete this topic HPV VACCINE Aged Out No longer eligi ble based on patient's age to complete this topic MENINGOCOCCAL (Group B) VACCINE SHARED DECISION-MAKING Aged Out No longer eligible based on patient's age to complete this topic MENINGOCOCCAL GROUPS A/C/Y/W VACCINE Aged Out No longer eligible b ased on patient's age to complete this topic Insurance [employer] MANAGED MEDICARE ADV Advance Directives * Full Code (Latest Code Status on File) Date Activated Date Inactivated Comments 11/18/2019 5:46 PM 11/20/2019 2:42 PM
--- NOTE | 2025-04-08 14:51 | ECG_ITS ---
Test Date: 2025-04-08 15:01:31 Measurements Intervals [place] Rate: 78 P: 66 MS: 164 QRS: 82 QRSD: 85 T: 210 QT: 413 QTc: 472 Interpretive Statements SINUS RHYTHM POSSIBLE RIGHT ATRIAL ENLARGEMENT ST-T WAVE ABNORMALITY IN DIFFUSE LEADS- CONSIDER ISCHEMIA ABNORMAL ECG Compared to ECG 04/08/2025 12:11:49 No significant changes Electronically Signed On 04-08-2025 16:04:30 CDT by Chava Castorena D.O.
[2025-04-08 15:40] LABS: Troponin I 0.066 ng/mL (0.000-0.034)
[2025-04-08] MEDS: amLODIPine BESYLATE 10 MG TABLET PO (17:05)
[2025-04-08] MEDS: METOPROLOL SUCCINATE EXT REL 25 MG TABCR PO (17:05)
--- NOTE | 2025-04-08 17:33 | PM.IMHP ---
H&P: HPI History of Present Illness Date/Time: 04/08/25 17:33 Chief Complaint: Near Syncope Narrative: 74 y/o F with PMH of paroxysmal SVT, myocardial infarction, and hypertension presents here with near syncope. The patient presents here from home via EMS for further evaluation of near syncope. The patient reports she had just gotten out of a hot shower when she began to feel warm, flushed, nauseated, diaphoretic, and had palpitations. She describes the palpitations as if her heart was racing. She previously has had episodes of paroxysmal SVT for which she can typically treat with vasovagal techniques such as bearing down. She attempted to bear down which she reports did improve her heart rate. She reports she previously has been on metoprolol for paroxysmal SVT, however she self discontinued the medication after she believed it would not return. She has been off the medication for the past 7-8 months. She has previously been recommended an ablation but did not proceed as she was scared. She currently denies shortness of breath, diaphoresis, dizzy. She did report some intermittent left-sided chest pain. chest pain remains present and is mild, accompanied by mild nausea and a brief episode of palpitations. Initial VS at presentation: 98.1? F, HR 85, R 18, 215/88, and 98% on RA. ED workup showed: WBC 11.1, hemoglobin 15.1, normal coags, no significant electrolyte derangements, creatinine 0.55 and GFR >60. Head CT showed no acute intracranial findings. CXR showed no acute cardiopulmonary pathology. Initial EKG showed sinus rhythm, ST-T-wave abnormality in diffuse leads consider ischemia. Repeat EKG showed no significant changes. Review of Systems Review of Systems: All systems reviewed & are unremarkable except as noted in HPI and below [facility] Past Medical History Medical History Myocardial infarction SVT (supraventricular tachycardia) HTN (hypertension) Surgical History Surgical History Hx of hysterectomy Family History Family History Sibling Acute myocardial infarction Father Acute myocardial infarction Pacemaker Mother Renal failure Acute myocardial infarction Social History Social History Smoking status: Never smoker Alcohol intake: never Substance use: never Do You Feel Safe in your Home?: Yes Lack of Transportation: No Lack of Food: Never True Current Housing: I Have Housing Concerned About Future Housing: No Difficulty Paying Gas/Electric Bills: No Difficulty Paying for Meds: No Currently Unemployed: No Education: High School Diploma/GED Difficulty w/ Childcare or Family Care: No Gender identity (if verbalized by the patient): Female Spiritual care concerns: No Meds Home Medications and Allergies Home Medications ?Medication ?Instructions ?Recorded ?Confirmed ?Type amlodipine 10 mg tablet 05/03/20 History aspirin 81 mg tablet,delayed 05/03/20 History release atorvastatin 80 mg tablet mg 07/23/22 History cyclobenzaprine 5 mg tablet mg 07/23/22 History lisinopril 20 tablet 07/23/22 History mg-hydrochlorothiazide 12.5 mg tablet metoprolol succinate 25 mg 25 mg PO DAILY 07/23/22 History tablet,extended release 24 hr cephalexin 500 mg tablet 500 mg PO Q12H 7 days #14 tabs 07/11/23 Rx metoprolol succinate 25 mg 25 mg PO DAILY #30 tabs 03/16/24 Rx tablet,extended release 24 hr Allergies Allergy/AdvReac Type Severity Reaction Status Date / Time No Known Allergies Allergy Mild Verified 04/08/25 12:16 Vital Signs Vital Signs - 24 hr 04/08/25 11:48 04/08/25 11:56 04/08/25 12:01 Temperature 98.1 F Pulse Rate 85 85 81 Respiratory Rate 18 12 Blood Pressure 215/88 H 195/91 H Pulse Oximetry 98 96 Oxygen Delivery Room Air 04/08/25 12:15 04/08/25 12:16 04/08/25 12:20 Temperature Pulse Rate 75 82 Respiratory Rate 23 H Blood Pressure 202/85 H Pulse Oximetry 99 99 Oxygen Delivery Room Air 04/08/25 12:31 04/08/25 12:46 04/08/25 14:02 Temperature Pulse Rate 78 81 76 Respiratory Rate 19 12 18 Blood Pressure 195/88 H 179/90 H 198/85 H Pulse Oximetry 98 Oxygen Delivery 04/08/25 15:01 04/08/25 15:16 04/08/25 15:31 Temperature Pulse Rate 80 84 83 Respiratory Rate 18 18 21 H Blood Pressure 202/98 H 210/96 H 201/100 H Pulse Oximetry 100 99 98 Oxygen Delivery 04/08/25 15:49 04/08/25 16:01 04/08/25 16:16 Temperature Pulse Rate 80 86 83 Respiratory Rate 18 18 14 Blood Pressure 197/89 H 191/92 H 192/93 H Pulse Oximetry 99 100 99 Oxygen Delivery 04/08/25 16:26 04/08/25 16:50 04/08/25 17:05 Temperature Pulse Rate 84 82 79 Respiratory Rate 18 16 Blood Pressure 204/86 H 166/96 H Pulse Oximetry 100 100 Oxygen Delivery 04/08/25 17:16 Temperature Pulse Rate 82 Respiratory Rate 20 Blood Pressure 197/85 H Pulse Oximetry 93 Oxygen Delivery Exam Const: General: comfortable and no acute distress Other: , female, nontoxic appearance HENMT: Face/Nose/Sinus: Normal nares present Mouth: Yes moist mucous membranes Eyes: General: appearance normal, both eyes and all related structures Sclera: sclerae normal Pupils: Equal, round and reactive pupils present EOM: EOMs intact bilaterally Resp: Effort & Inspection: normal respiratory effort Auscultation: clear to auscultation bilaterally Cardio: Rate: regular rate Rhythm: regular rhythm Other: S1-S2 present without murmur, rub, ectopy GI: Other: Abdomen soft, nondistended, nontender. Normoactive bowel sounds in all quadrants. Skin: General skin exam: normal color and no rashes or lesions noted Wounds: no wounds Neuro: Speech: normal speech Motor exam (neuro): 5/5 motor strength present throughout Sensory Exam: normal sensation Other: A&O x4 Extrem: General: normal to inspection Psych: Mental Status: mental status grossly normal Affect: normal affect Other: Good insight and judgment, very pleasant H&P: Results Labs Labs: Short CBC 04/08/25 Range/Units 12:14 WBC 11.1 H (4.5-10.0) K/mm3 Hgb 15.1 H (12.0-15.0) g/dL Hct 49.3 H (37.0-47.0) % Plt Count 319 (150-375) k/mm3 BMP 04/08/25 12:14 Sodium 138 Potassium 3.9 Chloride 104 Carbon Dioxide 27 BUN 11 Creatinine 0.55 L Glucose 132 H Calcium 9.5 Cardiac Enzymes 04/08/25 04/08/25 Range/Units 12:14 14:57 Troponin I 0.072 H* 0.066 H* (0.000-0.034) ng/mL Liver Function 04/08/25 Range/Units 12:14 Total Bilirubin 0.4 (0.2-1.3) mg/dL AST 33 (14-36) U/L ALT 30 (6-35) U/L Alkaline Phosphatase 74 (38-126) U/L Albumin 4.4 (3.5-5.1) g/dL Assessment and Plan Assessment and plan (1) Near syncope: Code(s): R55 - Syncope and collapse Status: Acute Assessment and Plan: - EKG, initial: Sinus rhythm, rate 80, ST-T-wave abnormality in diffuse leads consider ischemia. - EKG, repeat (1): Sinus rhythm, possible right atrial enlargement, ST-T-wave abnormality diffuse leads consider ischemia. When compared to prior EKG, no significant changes. - hx of pSVT on metoprolol, has been off this medication for the past XX restart metoprolol - troponin: 0.072 -> 0.066 -> 0.067 - check Mag - high suspicion for recurrent SVT, however continues to have mild left-sided chest pain. Will consult Cardiology. Nitro PRN and ASA 81 daily. - telemetry monitoring (2) SVT (supraventricular tachycardia): Code(s): I47.1 - Supraventricular tachycardia Status: Chronic Assessment and Plan: - Hx of pSVT - restart metoprolol ER 25 mg daily - suspect patient had recurrent SVT and was able to Valsalva into normal sinus rhythm at home - telemetry monitoring (3) HTN (hypertension): Qualifiers: Hypertension type: primary hypertension Qualified Code(s): I10 - Essential (primary) hypertension Code(s): I10 - Essential (primary) hypertension Status: Chronic Assessment and Plan: - chronic, currently 196/97. Arrived 215/88. - continue home medications: Amlodipine, lisinopril, hydrochlorothiazide - labetalol p.r.n. - monitor Plan Diet: Heart healthy GI Prophylaxis: Not currently indicated DVT Prophylaxis: Lovenox SQ IV fluids: 1L bolus -> 125 mL/hour x1L Lines/Tubes: Peripheral IV Code Status: Full code Quality VTE Prophylaxis VTE prophylaxis: pharmacologic ordered Hospitalist MIPS Advance Care Plan I have confirmed that the patient's Advanced Care Plan is present, code status is documented, or surrogate decision maker is listed in patient medical record.: Yes Medication Reconciliation I have utilized all available resources to obtain, update and review the patients current medications (includes all prescriptions, OTC, herbals, cannabis, and nutritional supplements).: Yes
--- NOTE | 2025-04-08 17:55 | ECG_ITS ---
Test Date: 2025-04-08 18:00:50 Measurements Intervals [place] Rate: 75 P: 48 NM: 159 QRS: 64 QRSD: 85 T: 142 QT: 406 QTc: 454 Interpretive Statements SINUS RHYTHM CONSIDER NO SIGNIFICANT CHANGEINFERIOR INFARCT, AGE INDETERMINATE ST-T WAVE ABNORMALITY IN ANTEROLAT/HIGH LAT LEADS- CONSIDER ISCHEMIA BASELINE ARTIFACT- I, II, III, AVR, AVL, AVF, V3-V6 ABNORMAL ECG Compared to ECG 04/08/2025 15:01:31 No significant changes Electronically Signed On 04-09-2025 07:09:11 CDT by Chava Castorena D.O.
[2025-04-08] MEDS: LACTATED RINGERS 1,000 ML 125 ML IV CONT (18:04)
[2025-04-08 18:51] LABS: Troponin I 0.067 ng/mL (0.000-0.034)
--- NOTE | 2025-04-08 20:42 | ADMGEN ---
This patient, Mouna Zapien, was admitted to IMU Room 202-01. Patient/family oriented to hospital policies and general routines including ID bracelet, bed and alarms, visiting hours, pain management, procedures, bathroom and other care routines, personal items, smoking policy, room service/diet, and visiting hours. Information on how to activate the Rapid Response Team has been discussed. Patient/Family are encouraged to report perceived risks to care and to ask questions if they do not understand what they are told or what they should do.
[2025-04-09] VITALS (18 sets, daily range): BP systolic 144–183; BP diastolic 53–77; PULSE 64–79; RESP 12–20; TEMP 36.2–36.8; O2SAT 98–100
--- NOTE | 2025-04-09 | ECHO_ITS ---
Patient Info Name: Mouna Zapien Age: 74 years : 1950 Gender: Female Ht: 62 in Wt: 146 lbs BSA: 1.72 m2 HR: 72 bpm BP: 156 / 63 mmHg Heart Rhythm: Sinus Rhythm Technical Quality: Good Exam Date: 04/09/2025 12:59 PM Patient Status: I Admit Date: 04/08/2025 Exam Type: CA echo doppler color flow Complete two-dimensional, color flow and Doppler transthoracic echocardiogram is performed with contrast to opacify the left ventricle and to improve the deliniation of the left ventricle endocardial borders. Staff Referring Physician: Jean Marie Vaughn Cnc Lathe Machine Operator: Tsering Wang Attending Provider: Hector Agarwal Contrast/Agitated Saline Contrast/Ag. Saline: Definity Amount: 2.00 ml Administered By: Tsering Wang Existing IV Access: Yes IV Access Condition: patent with no signs of infiltration Summary 1. Left ventricular chamber dimension is normal. 2. Left ventricular systolic function is normal, estimated at >70. 3. There is moderately increased left ventricular wall thickness. 4. The left ventricular diastolic function is grade I diastolic dysfunction. 5. Right ventricular systolic function is normal. 6. No significant valvular disease. Left Ventricle Left ventricular chamber dimension is normal. Left ventricular systolic function is normal, estimated at >70. There is moderately increased left ventricular wall thickness. The left ventricular diastolic function is grade I diastolic dysfunction. Right Ventricle Right ventricular chamber dimension is normal. Right ventricular systolic function is normal. Left Atria Left atrial chamber dimension is normal. Right Atria Right atrial chamber dimension is normal. Atrial Septum Intact interatrial septum visualized by color flow imaging. Aortic Valve The aortic valve is trileaflet. There is no aortic valve stenosis. There is no aortic valve regurgitation. There is mild aortic valve calcification. Pulmonic Valve The pulmonic valve is not well visualized. There is no pulmonic regurgitation. Mitral Valve There is trace mitral valve regurgitation. Tricuspid Valve There is trace tricuspid valve regurgitation. Pericardium/Pleural The pericardium appears epicardial fat pad. There is trivial pericardial effusion. Inferior Vena Cava Normal inferior vena cava with >50% collapse upon inspiration consistent with normal right atrial pressure, 3 mmHg. Aorta The aortic root size at the sinus of Valsalva is normal. Left Ventricular Outflow Tract Name Value Normal LVOT 2D LVOT Diameter 2.0 cm LVOT Doppler LVOT Peak Velocity 149 cm/s LVOT Peak Gradient 9 mmHg LVOT Mean Gradient 4 mmHg LVOT VTI 24 cm LVOT VTI/AV VTI Ratio 0.6 LVOT Stroke Volume 77 ml LVOT CO 5.7 l/min LVOT CI 3.3 l/min/m2 Pulmonic Valve Name Value Normal RVOT Doppler RVOT Peak Velocity 105 cm/s RVOT Peak Gradient 4 mmHg PV Doppler PV Peak Velocity 141 cm/s PV Peak Gradient 8 mmHg Mitral Valve Name Value Normal MV Diastolic Function MV E Peak Velocity 62 cm/s MV A Peak Velocity 89 cm/s MV E/A 0.7 MV Decel Time (PW) 242 ms MV Annular TDI MV E/e' (Septal) 14.6 MV E/e' (Lateral) 11.6 MV E/e' (Average) 13.1 Tricuspid Valve Name Value Normal TV Regurgitation Doppler TR Peak Velocity 327 cm/s TR Peak Gradient 43 mmHg Estimated PAP/RSVP RA Pressure 3 mmHg <=5 PA Systolic Pressure 46 mmHg <36 RV Systolic Pressure 46 mmHg <36 TV Annular TDI TV Lateral Sumi s' Velocity 13.7 cm/s >=9.5 Aorta Name Value Normal Ascending Aorta Ao Root Diameter (MM) 2.3 cm Ao Root Diam Index (MM) 1.3 cm/m2 Aortic Valve Name Value Normal AV Doppler AV Peak Velocity 225 cm/s AV Peak Gradient 20 mmHg AV Mean Gradient 10 mmHg AV VTI 39 cm AV Area (Cont Eq VTI) 2.0 cm2 >=3.0 AV Area (Cont Eq Rob) 2.1 cm2 AV DI (Rob) 0.67 AV Regurgitation 2D LVOT Area 3.2 cm2 Ventricles Name Value Normal LV Dimensions 2D/MM IVS Diastolic Thickness (2D) 1.2 cm 0.6-1.0 LVID Diastole (2D) 3.8 cm 3.8-5.2 LVIW Diastolic Thickness (2D) 1.2 cm 0.6-0.9 LVID Systole (2D) 2.3 cm 2.2-3.5 LVOT Diameter 2.0 cm LV Mass (2D Cubed) 151.81 g 67.00-162.00 LV Mass Index (2D Cubed) 88 g/m2 43-95 Relative Wall Thickness (2D) 0.64 <=0.42 LV Fractional Shortening/Ejection Fraction 2D/MM LV Fractional Shortening (2D) 40 % 27-45 LV EF (2D Teichholz) 71 % LV Diastolic Volume (4C MOD) 37 ml LV EF (4C MOD) 71 % LV Diastolic Volume (2C MOD) 29 ml LV EF (2C MOD) 63 % LV Diastolic Volume (BP MOD) 33 ml 46-106 LV Diastolic Volume Index (BP MOD) 19 ml/m2 29-61 LV Systolic Volume (BP MOD) 11 ml 14-42 LV Systolic Volume Index (BP MOD) 7 ml/m2 8-24 LV EF (BP MOD) 67 % 54-74 LV Diastolic Length (4C) 7.3 cm LV Systolic Length (4C) 5.6 cm LV Stroke Volume (4C MOD) 26 ml Atria Name Value Normal LA Dimensions LA Dimension (MM) 4.4 cm 2.7-3.8 LA Volume (4C A-L) 49 ml LA Volume (BP A-L) 51 ml RA Dimensions RA Area (4C) 15.0 cm2 <=18.0 Report Signatures
[2025-04-09 04:28] LABS: Basophils Absolute Auto 0.1 K/mm3 (0.0-0.1); Basophils Percent Auto 0.7 % (0.2-1.2); Eosinophils Absolute Auto 0.2 K/mm3 (0-0.3); Hematocrit 47.3 % (37.0-47.0); Hemoglobin 14.4 g/dL (12.0-15.0); Immature Granulocyte Absolute 0.03 K/mm3 (0.00-0.031); Immature Granulocyte Percent A 0.3 % (0-0.5); Lymphocytes Absolute Auto 3.73 K/mm3 (0.9-3.2); Lymphocytes Percent Auto 36.5 % (18.3-44.2); Mean Corpuscular HGB Conc 30.4 g/dl (32-36); Mean Corpuscular Hemoglobin 27.9 pg (26-34); Mean Corpuscular Volume 91.5 fl (80-100); Mean Platelet Volume 9.9 fl (7.4-10.4); Monocytes Absolute Auto 0.7 K/mm3 (0.1-0.6); Monocytes Percent Auto 6.4 % (2.6-8.5); Neutrophils Absolute Auto 5.5 K/mm3 (1.3-6.7); Neutrophils Percent Auto 54.1 % (45.5-73.1); Platelet Count Result 315 k/mm3 (150-375); Red Blood Count 5.17 M/mm3 (4.2-5.4); Red Cell Distribution Width 11.9 % (11.5-14.5); White Blood Count 10.2 K/mm3 (4.5-10.0)
[2025-04-09 04:51] LABS: Alanine Aminotransferase 21 U/L (6-35); Albumin Level 3.9 g/dL (3.5-5.1); Alkaline Phosphatase 72 U/L (38-126); Anion Gap 7 mmol/L (4-12); Aspartate Amino Transferase 33 U/L (14-36); Bilirubin,Total 0.6 mg/dL (0.2-1.3); Blood Urea Nitrogen 9 mg/dL (7-17); Calcium 9.1 mg/dL (8.4-10.2); Carbon Dioxide 26 mmol/L (22-30); Chloride 104 mmol/L (98-107); Estimated CRCL calculation 69 ml/min; Estimated Glomerular Filt Rate > 60; Glucose 94 mg/dL (65-110); Magnesium 2.1 mg/dL (1.6-2.3); Potassium 3.8 mmol/L (3.4-5.0); Sodium 137 mmol/L (137-145); Total Protein 7.3 g/dL (6.3-8.2)
--- NOTE | 2025-04-09 09:50 | P.CONCA_ITS ---
Assessment and Plan Assessment and plan (1) Elevated troponin: Code(s): R79.89 - Other specified abnormal findings of blood chemistry Status: Acute Plan 1. Near syncope 2. Elevated troponin. Flat, likely not an acute coronary syndrome. 3. Atypical chest pain -- reproducible on examination 4. Paroxysmal SVT 5. Moderate non-obstructive coronary artery disease 6. Hypertension, uncontrolled 7. Hyperlipidemia PLAN: -Has symptoms concerning for orthostasis. Check orthostatic vital signs. -Check TSH level. -Check echocardiogram. -Chest pain is atypical and reproducible on examination, consistent with musculoskeletal etiology. -Agree with restarting Metoprolol for PSVT. -Continue ASA, statin. -Continue Amlodipine, Lisinopril-HCTZ. Adjust as needed for blood pressure control. History of Present Illness History of Present Illness Consult date/time: 04/09/25 09:50 Requesting physician: Ailyn Layton APRN Consult reason: Other (Elevated troponin, SVT) Reason For Visit: Elevated troponin, Uncontrolled hypertension Narrative: Mouna is a 74 year old female with known paroxysmal SVT, moderate non- obstructive coronary artery disease, hypertension, hyperlipidemia who presented with near syncope after getting out of hot shower. [place] warm, flushed, and her heart was racing. Was told to do Vagal maneuvers in the past, and she had tried to bear down to get her heart rate down. Had been on Metoprolol in the past, but had self-discontinued this. Sees Dr. Peralta at [place], was offered SVT ablation in the past, however, patient did not want to pursue it at that time. Blood pressure in the 200s upon presentation here. Troponins are 0.072, 0.066, 0.067. CXR no acute findings. CT Head no acute findings. EKGs with sinus rhythm with diffuse STTW abnormality. EKG unchanged compared to previous from February 2025. Review of Systems 2 Review of Systems: All systems reviewed & are unremarkable except as noted in HPI and below (HPI) [facility] Past Medical History Medical History Myocardial infarction SVT (supraventricular tachycardia) HTN (hypertension) Surgical History Surgical History Hx of hysterectomy Family History Family History Sibling Acute myocardial infarction Father Acute myocardial infarction Pacemaker Mother Renal failure Acute myocardial infarction Social History Social History Smoking status: Never smoker Alcohol intake: never Substance use: never Do You Feel Safe in your Home?: Yes Lack of Transportation: No Lack of Food: Never True Current Housing: I Have Housing Concerned About Future Housing: No Difficulty Paying Gas/Electric Bills: No Difficulty Paying for Meds: No Currently Unemployed: No Education: High School Diploma/GED Difficulty w/ Childcare or Family Care: No Gender identity (if verbalized by the patient): Female Spiritual care concerns: No Meds Home Medications and Allergies Home Medications ?Medication ?Instructions ?Recorded ?Confirmed ?Type amlodipine 10 mg tablet 10 mg PO DAILY 05/03/20 04/08/25 History aspirin 81 mg tablet,delayed 81 mg PO DAILY 05/03/20 04/08/25 History release atorvastatin 80 mg tablet 80 mg PO QPM 07/23/22 04/08/25 History cyclobenzaprine 5 mg tablet 5 mg PO DAILY PRN muscle spasm 07/23/22 04/08/25 History lisinopril 20 1 tablet PO DAILY 07/23/22 04/08/25 History mg-hydrochlorothiazide 12.5 mg tablet metoprolol succinate 25 mg 25 mg PO DAILY 07/23/22 04/08/25 History tablet,extended release 24 hr metoprolol succinate 25 mg 25 mg PO DAILY #30 tabs 03/16/24 04/08/25 Rx tablet,extended release 24 hr Allergies Allergy/AdvReac Type Severity Reaction Status Date / Time No Known Allergies Allergy Mild Verified 04/08/25 12:16 Vital Signs Vital Signs - 24 hr 04/08/25 11:48 04/08/25 11:56 04/08/25 12:01 Temperature 36.7 C Pulse Rate 85 85 81 Respiratory Rate 18 12 Blood Pressure 215/88 H 195/91 H Pulse Oximetry 98 96 Oxygen Delivery Room Air 04/08/25 12:15 04/08/25 12:16 04/08/25 12:20 Temperature Pulse Rate 75 82 Respiratory Rate 23 H Blood Pressure 202/85 H Pulse Oximetry 99 99 Oxygen Delivery Room Air 04/08/25 12:31 06/16/25 12:46 04/08/25 14:02 Temperature Pulse Rate 78 81 76 Respiratory Rate 19 12 18 Blood Pressure 195/88 H 179/90 H 198/85 H Pulse Oximetry 98 Oxygen Delivery 04/08/25 15:01 04/08/25 15:16 04/08/25 15:31 Temperature Pulse Rate 80 84 83 Respiratory Rate 18 18 21 H Blood Pressure 202/98 H 210/96 H 201/100 H Pulse Oximetry 100 99 98 Oxygen Delivery 04/08/25 15:49 04/08/25 16:01 04/08/25 16:16 Temperature Pulse Rate 80 86 83 Respiratory Rate 18 18 14 Blood Pressure 197/89 H 191/92 H 192/93 H Pulse Oximetry 99 100 99 Oxygen Delivery 04/08/25 16:26 04/08/25 16:50 04/08/25 17:05 Temperature Pulse Rate 84 82 79 Respiratory Rate 18 16 Blood Pressure 204/86 H 166/96 H Pulse Oximetry 100 100 Oxygen Delivery 04/08/25 17:16 04/08/25 17:31 04/08/25 18:01 Temperature Pulse Rate 82 82 75 Respiratory Rate 20 16 13 Blood Pressure 197/85 H 188/87 H 196/97 H Pulse Oximetry 93 100 100 Oxygen Delivery 04/08/25 18:31 04/08/25 18:46 04/08/25 19:01 Temperature Pulse Rate 73 82 85 Respiratory Rate 23 H 20 19 Blood Pressure 190/90 H 202/84 H 237/114 H Pulse Oximetry 98 Oxygen Delivery 04/08/25 19:08 04/08/25 19:16 04/08/25 19:30 Temperature Pulse Rate 84 85 76 Respiratory Rate 18 15 16 Blood Pressure 211/99 H 188/76 H Pulse Oximetry Oxygen Delivery 04/08/25 19:52 04/08/25 19:56 04/08/25 20:00 Temperature 36.7 C Pulse Rate 79 76 77 Respiratory Rate 18 16 Blood Pressure 202/77 H 188/76 H Pulse Oximetry 100 98 Oxygen Delivery 04/08/25 20:40 04/08/25 22:00 04/08/25 23:19 Temperature 36.6 C Pulse Rate 76 79 82 Respiratory Rate 16 16 Blood Pressure 182/88 H Pulse Oximetry 98 100 Oxygen Delivery Room Air 04/08/25 23:25 04/09/25 00:00 04/09/25 02:00 Temperature Pulse Rate 77 68 67 Respiratory Rate 16 Blood Pressure Pulse Oximetry 100 Oxygen Delivery Room Air 04/09/25 03:50 04/09/25 03:54 04/09/25 04:00 Temperature 36.2 C L Pulse Rate 67 67 67 Respiratory Rate 16 16 Blood Pressure 145/69 H Pulse Oximetry 98 98 Oxygen Delivery Room Air 04/09/25 06:00 04/09/25 08:00 Temperature 36.7 C Pulse Rate 72 72 Respiratory Rate 16 Blood Pressure 156/63 H Pulse Oximetry 100 Oxygen Delivery Exam 2 Const: General: comfortable and no acute distress HENMT: Mouth: Yes moist mucous membranes Eyes: General: appearance normal, both eyes and all related structures S clera: sclerae normal Chest: Other: Reproducible chest wall tenderness Resp: Effort & Inspection: normal respiratory effort Cardio: Rate: regular rate Rhythm: regular rhythm Skin: General skin exam: normal color Neuro: Speech: normal speech Psych: Mental Status: mental status grossly normal Affect: normal affect Results Labs and Meds 04/09/25 03:47 04/09/25 03:47 Lab results: Cardiac Enzymes 04/08/25 04/08/25 04/08/25 Range/Units 12:14 14:57 18:02 AST 33 (14-36) U/L Troponin I 0.072 H* 0.066 H* 0.067 H* (0.000-0.034) ng/mL 04/09/25 Range/Units 03:47 AST 33 (14-36) U/L Troponin I (0.000-0.034) ng/mL Coagulation 04/08/25 Range/Units 12:14 PT 14.0 (11.1-14.7) Seconds APTT 27.7 (22.3-36.8) Seconds CBC 04/08/25 04/09/25 Range/Units 12:14 03:47 WBC 11.1 H 10.2 H (4.5-10.0) K/mm3 RBC 5.39 5.17 (4.2-5.4) M/mm3 Hgb 15.1 H 14.4 (12.0-15.0) g/dL Hct 49.3 H 47.3 H (37.0-47.0) % Plt Count 319 315 (150-375) k/mm3 Lymph # (Auto) 1.72 3.73 H (0.9-3.2) K/mm3 Tift # (Auto) 0.7 H 0.7 H (0.1-0.6) K/mm3 Eos # (Auto) 0.1 0.2 (0-0.3) K/mm3 Baso # (Auto) 0.1 0.1 (0.0-0.1) K/mm3 Comprehensive Metabolic Panel 04/08/25 04/09/25 Range/Units 12:14 03:47 Sodium 138 137 (137-145) mmol/L Potassium 3.9 3.8 (3.4-5.0) mmol/L Chloride 104 104 (98-107) mmol/L Carbon Dioxide 27 26 (22-30) mmol/L BUN 11 9 (7-17) mg/dL Creatinine 0.55 L 0.54 L (0.7-1.0) mg/dL Glucose 132 H 94 (65-110) mg/dL Calcium 9.5 9.1 (8.4-10.2) mg/dL AST 33 33 (14-36) U/L ALT 30 21 (6-35) U/L Alkaline Phosphatase 74 72 (38-126) U/L Total Protein 8.0 7.3 (6.3-8.2) g/dL Albumin 4.4 3.9 (3.5-5.1) g/dL Intake and Output 04/08/25 04/09/25 04/09/25 23:59 07:59 15:59 Intake Total 1300 360 Output Total 1000 Balance 300 360 Intake: IV 1000 Lactated Ringers 1,000 ml @ 125 1000 mls/hr IV CONT .Q8H [facility] Rx#: [id number] Oral 300 360 Output: Urine 1000 Patient Weight 04/09/25 23:59 Weight 66.5 kg
[2025-04-09] MEDS: amLODIPine BESYLATE 10 MG TABLET PO (10:35)
[2025-04-09] MEDS: lisinopriL 20 MG TABLET PO (10:35)
[2025-04-09] MEDS: hydroCHLOROthiazide 12.5 MG CAPSULE PO (10:35)
[2025-04-09] MEDS: ASPIRIN 81 MG ENTERIC TABLET PO (10:36)
[2025-04-09] MEDS: ENOXAPARIN 40 MG/0.4 ML SYRINGE SUB-Q (10:36)
[2025-04-09] MEDS: METOPROLOL SUCCINATE EXT REL 25 MG TABCR PO (10:37)
--- NOTE | 2025-04-09 10:57 | ECG_ITS ---
Test Date: 2025-04-09 11:28:59 Measurements Intervals [place] Rate: 66 P: 51 DE: 159 QRS: 73 QRSD: 90 T: 172 QT: 438 QTc: 460 Interpretive Statements SINUS RHYTHM ST-T WAVE ABNORMALITY IN DIFFUSE LEADS- CONSIDER ISCHEMIA ABNORMAL ECG Compared to ECG 04/08/2025 18:00:50 NO SIGNIFICANT CHANGE Electronically Signed On 04-09-2025 12:05:00 CDT by Chava Castorena D.O.
--- NOTE | 2025-04-09 12:42 | PM.IMPN ---
Progress Note: A&P Assessment and Plan (1) Near syncope: Code(s): R55 - Syncope and collapse Status: Acute Assessment and Plan: - EKG, initial: Sinus rhythm, rate 80, ST-T-wave abnormality in diffuse leads consider ischemia. - EKG, repeat (1): Sinus rhythm, possible right atrial enlargement, ST-T-wave abnormality diffuse leads consider ischemia. When compared to prior EKG, no significant changes. - hx of pSVT on metoprolol, has been off this medication for the past XX restart metoprolol - troponin: 0.072 -> 0.066 -> 0.067 - Mag 2.1 - high suspicion for recurrent SVT, however continues to have mild left-sided chest pain. - Cardiology to consult and will follow recommendations - Nitro PRN and ASA 81 daily. - telemetry monitoring (2) SVT (supraventricular tachycardia): Code(s): I47.1 - Supraventricular tachycardia Status: Chronic Assessment and Plan: - Hx of pSVT - restarted metoprolol ER 25 mg daily - suspect patient had recurrent SVT and was able to Valsalva into normal sinus rhythm at home - telemetry monitoring (3) HTN (hypertension): Qualifiers: Hypertension type: primary hypertension Qualified Code(s): I10 - Essential (primary) hypertension Code(s): I10 - Essential (primary) hypertension Status: Chronic Assessment and Plan: - chronic, currently 196/97. Arrived 215/88. - continue home medications: Amlodipine, lisinopril, hydrochlorothiazide - labetalol p.r.n. - monitor Plan Diet: Heart healthy GI Prophylaxis: Not currently indicated DVT Prophylaxis: Lovenox SQ IV fluids: 1L bolus -> 125 mL/hour x1L Lines/Tubes: Peripheral IV Code Status: Full code Time Spent With Patient Time with patient: Greater than 35 minutes Subjective Date/time seen: 04/09/25 08:42 Interval history: patient reports feeling fatigued, she continues to have some dizziness and SOB with ambulation. reports she still feels some pressure in her left chest at times. denies any other concerns or distress. Review of Systems Review of Systems: All systems reviewed & are unremarkable except as noted in HPI and below Exam Const: General: comfortable and no acute distress Other: , female, nontoxic appearance HENMT: Face/Nose/Sinus: Normal nares present Mouth: Yes moist mucous membranes Eyes: General: appearance normal, both eyes and all related structures Sclera: sclerae normal Pupils: Equal, round and reactive pupils present EOM: EOMs intact bilaterally Resp: Effort & Inspection: normal respiratory effort Auscultation: clear to auscultation bilaterally Cardio: Rate: regular rate Rhythm: regular rhythm Other: S1-S2 present without murmur, rub, ectopy GI: Other: Abdomen soft, nondistended, nontender. Normoactive bowel sounds in all quadrants. Skin: General skin exam: normal color and no rashes or lesions noted Wounds: no wounds Neuro: Cranial nerves: Yes Equal, round and reactive pupils present Speech: normal speech Motor exam (neuro): 5/5 motor strength present throughout Sensory Exam: normal sensation Other: A&O x4 Extrem: General: normal to inspection Psych: Mental Status: mental status grossly normal Affect: normal affect Other: Good insight and judgment, very pleasant Objective Data Vital Signs Vital Signs: Vital Signs - 24 hr 04/08/25 12:46 04/08/25 14:02 04/08/25 15:01 Temperature Pulse Rate 81 76 80 Respiratory Rate 12 18 18 Blood Pressure 179/90 H 198/85 H 202/98 H Pulse Oximetry 98 100 Oxygen Delivery 04/08/25 15:16 04/08/25 15:31 04/08/25 15:49 Temperature Pulse Rate 84 83 80 Respiratory Rate 18 21 H 18 Blood Pressure 210/96 H 201/100 H 197/89 H Pulse Oximetry 99 98 99 Oxygen Delivery 04/08/25 16:01 04/08/25 16:16 04/08/25 16:26 Temperature Pulse Rate 86 83 84 Respiratory Rate 18 14 18 Blood Pressure 191/92 H 192/93 H 204/86 H Pulse Oximetry 100 99 100 Oxygen Delivery 04/08/25 16:50 04/08/25 17:05 04/08/25 17:16 Temperature Pulse Rate 82 79 82 Respiratory Rate 16 20 Blood Pressure 166/96 H 197/85 H Pulse Oximetry 100 93 Oxygen Delivery 04/08/25 17:31 04/08/25 18:01 04/08/25 18:31 Temperature Pulse Rate 82 75 73 Respiratory Rate 16 13 23 H Blood Pressure 188/87 H 196/97 H 190/90 H Pulse Oximetry 100 100 98 Oxygen Delivery 04/08/25 18:46 04/08/25 19:01 04/08/25 19:08 Temperature Pulse Rate 82 85 84 Respiratory Rate 20 19 18 Blood Pressure 202/84 H 237/114 H Pulse Oximetry Oxygen Delivery 04/08/25 19:16 04/08/25 19:30 04/08/25 19:52 Temperature 98.1 F Pulse Rate 85 76 79 Respiratory Rate 15 16 18 Blood Pressure 211/99 H 188/76 H 202/77 H Pulse Oximetry 100 Oxygen Delivery 04/08/25 19:56 04/08/25 20:00 04/08/25 20:40 Temperature Pulse Rate 76 77 76 Respiratory Rate 16 16 Blood Pressure 188/76 H Pulse Oximetry 98 98 Oxygen Delivery Room Air 04/08/25 22:00 04/08/25 23:19 04/08/25 23:25 Temperature 97.9 F Pulse Rate 79 82 77 Respiratory Rate 16 16 Blood Pressure 182/88 H Pulse Oximetry 100 100 Oxygen Delivery Room Air 04/09/25 00:00 04/09/25 02:00 04/09/25 03:50 Temperature Pulse Rate 68 67 67 Respiratory Rate 16 Blood Pressure Pulse Oximetry 98 Oxygen Delivery Room Air 04/09/25 03:54 04/09/25 04:00 04/09/25 06:00 Temperature 97.1 F L Pulse Rate 67 67 72 Respiratory Rate 16 Blood Pressure 145/69 H Pulse Oximetry 98 Oxygen Delivery 04/09/25 08:00 04/09/25 10:02 04/09/25 10:27 Temperature 98.1 F 97.6 F Pulse Rate 72 79 Respiratory Rate 16 12 Blood Pressure 156/63 H 183/75 H Pulse Oximetry 100 100 100 Oxygen Delivery Room Air 04/09/25 10:30 04/09/25 10:30 04/09/25 10:37 Temperature Pulse Rate 75 Respiratory Rate Blood Pressure 176/68 H 180/77 H Pulse Oximetry Oxygen Delivery 04/09/25 12:00 Temperature 98.3 F Pulse Rate 72 Respiratory Rate 20 Blood Pressure 169/73 H Pulse Oximetry 100 Oxygen Delivery Intake/Output Intake/Output: Intake & Output 04/06/25 04/07/25 04/08/25 04/09/25 23:59 23:59 23:59 23:59 Intake Total 1000 1660 Output Total 1000 Balance 1000 660 Meds/Results Medications: Active Medications Generic Name Dose Route Start Last Admin Trade Name Freq PRN Reason Stop Dose Admin Amlodipine Besylate 10 mg 04/08/25 16:00 04/09/25 10:35 Amlodipine Besylate 10 Mg Tablet PO 10 mg DAILY [facility] Administration Aspirin 81 mg 04/09/25 09:00 04/09/25 10:36 Aspirin 81 Mg Enteric Tablet PO 81 mg QAM [facility] Administration Aspirin 81 mg 04/09/25 09:00 04/09/25 10:36 Aspirin 81 Mg Enteric Tablet PO Not Given DAILY [facility] Atorvastatin Calcium 80 mg 04/09/25 18:00 Atorvastatin 40 Mg Tablet PO QPM [facility] Cyclobenzaprine HCl 5 mg 04/08/25 23:04 Cyclobenzaprine Hcl 5 Mg Tablet PO DAILY PRN muscle spasm Enoxaparin Sodium 40 mg 04/09/25 09:00 04/09/25 10:36 Enoxaparin 40 Mg/0.4 Ml Syringe SUB-Q 40 mg DAILY [facility] Administration Hydrochlorothiazide 12.5 mg 04/09/25 09:00 04/09/25 10:35 Hydrochlorothiazide 12.5 Mg Capsule PO 12.5 mg QAM [facility] Administration Labetalol HCl 20 mg 04/08/25 17:24 Labetalol Hcl Inj 100 Mg/20 Ml Vial IV PUSH ONCE PRN Hypertensive Emergency Lisinopril 20 mg 04/09/25 09:00 04/09/25 10:35 Lisinopril 20 Mg Tablet PO 20 mg QAM [facility] Administration Metoprolol Succinate 25 mg 04/09/25 09:00 04/09/25 10:37 Metoprolol Succinate Ext Rel 25 Mg Tabcr PO 25 mg QAM [facility] Administration Nitroglycerin 0.4 mg 04/08/25 21:03 Nitroglycerin Sl 0.4 Mg Tablet SUBLINGUAL Q5MIN PRN Chest Pain Ondansetron HCl 4 mg 04/08/25 17:24 Ondansetron Inj 4 Mg/2 Ml Vial IV PUSH Q4H PRN Nausea Perflutren Lipid Microsphere 0 ml 04/09/25 10:17 Perflutren Lipid Microspheres 1.5 Ml Vial Diluted To 10 Ml Total Volume IV PUSH 04/12/25 10:17 ONCE PRN adequate visualization Protocol Radiology Results: ITS Impressions Head CT 04/08/25 13:16 IMPRESSION: No acute intracranial findings. Chest X-Ray 04/08/25 13:26 IMPRESSION: No acute cardiopulmonary pathology. Labs Labs: Laboratory Results - last 24 hr 04/08/25 04/08/25 04/08/25 12:14 14:57 18:02 WBC RBC Hgb Hct MCV MCH MCHC RDW Plt Count MPV Immature Gran % (Auto) Neut % (Auto) Lymph % (Auto) [place] % (Auto) Eos % (Auto) Baso % (Auto) Lymph # (Auto) [place] # (Auto) Eos # (Auto) Baso # (Auto) Abs Immat Gran (auto) Absolute Neuts (auto) Absolute Nucleated RBC Nucleated RBC % Sodium Potassium Chloride Carbon Dioxide Anion Gap BUN Creatinine Estim Creat Clear Calc Estimated GFR Glucose Calcium Magnesium Total Bilirubin AST ALT Alkaline Phosphatase Troponin I 0.072 H* 0.066 H* 0.067 H* Total Protein Albumin TSH 04/09/25 03:47 WBC 10.2 H RBC 5.17 Hgb 14.4 Hct 47.3 H MCV 91.5 MCH 27.9 MCHC 30.4 L RDW 11.9 Plt Count 315 MPV 9.9 Immature Gran % (Auto) 0.3 Neut % (Auto) 54.1 Lymph % (Auto) 36.5 [place] % (Auto) 6.4 Eos % (Auto) 2.0 Baso % (Auto) 0.7 Lymph # (Auto) 3.73 H [place] # (Auto) 0.7 H Eos # (Auto) 0.2 Baso # (Auto) 0.1 Abs Immat Gran (auto) 0.03 Absolute Neuts (auto) 5.5 Absolute Nucleated RBC 0.000 Nucleated RBC % 0.0 Sodium 137 Potassium 3.8 Chloride 104 Carbon Dioxide 26 Anion Gap 7 BUN 9 Creatinine 0.54 L Estim Creat Clear Calc 69 Estimated GFR > 60 Glucose 94 Calcium 9.1 Magnesium 2.1 Total Bilirubin 0.6 AST 33 ALT 21 Alkaline Phosphatase 72 Troponin I Total Protein 7.3 Albumin 3.9 TSH 1.300 Quality VTE Prophylaxis VTE prophylaxis: pharmacologic ordered Hospitalist [facility] Advance Care Plan I have confirmed that the patient's Advanced Care Plan is present, code status is documented, or surrogate decision maker is listed in patient medical record.: Yes Medication Reconciliation I have utilized all available resources to obtain, update and review the patients current medications (includes all prescriptions, OTC, herbals, cannabis, and nutritional supplements).: Yes The patient is not eligible for med reconciliation; the patient is in a emergent medical situation where delaying treatment would jeopardize the patients health.: Yes
[2025-04-09] MEDS: PERFLUTREN LIPID MICROSPHERES 1.5 ML VIAL DILUTED TO 10 ML TOTAL VOLUME IV PUSH (13:30)
--- NOTE | 2025-04-09 14:06 | IVDEFINITY ---
Prior to administration of IV Definity the patient was educated on the risks and benefits of the imaging enhancing agent including potential adverse side effects. The patient verbalized understanding. Allergies were verified. No exclusion criteria were identified and at least one of the following inclusion criteria were met: 1) physician request, 2) patient technically difficult to image (per the [place] [employer] guidelines of two or more segments not discernable within the apical view), or 3) questionable left ventricular function. ?
[2025-04-09] MEDS: ATORVASTATIN 40 MG TABLET 80 MG PO (17:41)
[2025-04-10] VITALS (15 sets, daily range): BP systolic 133–187; BP diastolic 60–86; PULSE 60–77; RESP 16–20; TEMP 36.1–37.2; O2SAT 92–100
[2025-04-10 04:17] LABS: Basophils Absolute Auto 0.1 K/mm3 (0.0-0.1); Basophils Percent Auto 0.7 % (0.2-1.2); Eosinophils Absolute Auto 0.3 K/mm3 (0-0.3); Eosinophils Percent Auto 2.6 % (0-4.4); Hematocrit 47.4 % (37.0-47.0); Hemoglobin 14.6 g/dL (12.0-15.0); Immature Granulocyte Absolute 0.02 K/mm3 (0.00-0.031); Immature Granulocyte Percent A 0.2 % (0-0.5); Lymphocytes Absolute Auto 4.31 K/mm3 (0.9-3.2); Lymphocytes Percent Auto 44.2 % (18.3-44.2); Mean Corpuscular HGB Conc 30.8 g/dl (32-36); Mean Corpuscular Hemoglobin 28.1 pg (26-34); Mean Corpuscular Volume 91.3 fl (80-100); Mean Platelet Volume 9.8 fl (7.4-10.4); Monocytes Absolute Auto 0.7 K/mm3 (0.1-0.6); Monocytes Percent Auto 6.7 % (2.6-8.5); Neutrophils Absolute Auto 4.5 K/mm3 (1.3-6.7); Neutrophils Percent Auto 45.6 % (45.5-73.1); Platelet Count Result 310 k/mm3 (150-375); Red Blood Count 5.19 M/mm3 (4.2-5.4); Red Cell Distribution Width 11.9 % (11.5-14.5); White Blood Count 9.8 K/mm3 (4.5-10.0)
[2025-04-10 04:36] LABS: Alanine Aminotransferase 22 U/L (6-35); Albumin Level 3.8 g/dL (3.5-5.1); Alkaline Phosphatase 73 U/L (38-126); Anion Gap 6 mmol/L (4-12); Aspartate Amino Transferase 28 U/L (14-36); Bilirubin,Total 0.5 mg/dL (0.2-1.3); Blood Urea Nitrogen 12 mg/dL (7-17); Calcium 9.3 mg/dL (8.4-10.2); Carbon Dioxide 29 mmol/L (22-30); Chloride 103 mmol/L (98-107); Estimated CRCL calculation 56 ml/min; Estimated Glomerular Filt Rate > 60; Glucose 99 mg/dL (65-110); Magnesium 2.1 mg/dL (1.6-2.3); Potassium 3.5 mmol/L (3.4-5.0); Sodium 138 mmol/L (137-145); Total Protein 7.2 g/dL (6.3-8.2)
[2025-04-10] MEDS: ASPIRIN 81 MG ENTERIC TABLET PO (08:56)
[2025-04-10] MEDS: ENOXAPARIN 40 MG/0.4 ML SYRINGE SUB-Q (08:56)
[2025-04-10] MEDS: amLODIPine BESYLATE 10 MG TABLET PO (08:57)
[2025-04-10] MEDS: hydroCHLOROthiazide 12.5 MG CAPSULE PO (08:57)
[2025-04-10] MEDS: METOPROLOL SUCCINATE EXT REL 25 MG TABCR PO (08:57)
[2025-04-10] MEDS: lisinopriL 20 MG TABLET PO (08:57)
--- NOTE | 2025-04-10 10:36 | PM.PNCARD ---
Progress Note: A&P Assessment and Plan (1) Elevated troponin: Code(s): R79.89 - Other specified abnormal findings of blood chemistry Status: Acute Plan 1. Near syncope, likely vasovagal 2. Elevated troponin. Flat, likely not an acute coronary syndrome. 3. Atypical chest pain -- reproducible on examination 4. Paroxysmal SVT 5. Moderate non-obstructive coronary artery disease 6. Hypertension, uncontrolled 7. Hyperlipidemia PLAN: -Echocardiogram reviewed with the patient, LVEF >70%. -Has orthostasis symptoms. Orthostatic vital signs 04/09 negative. Recommend adequate oral fluid intake. Will not uptitrate antihypertensive regimen at this time to avoid worsening of orthostasis symptoms. Blood pressures overall acceptable at this time. -Chest pain is atypical and reproducible on examination, consistent with musculoskeletal etiology. -Agree with Metoprolol for PSVT. -Continue ASA, statin. -Continue Amlodipine, Lisinopril-HCTZ. Okay for discharge from a cardiac standpoint. Patient will follow up with her primary parts sales associate after hospital discharge. Subjective Date/time seen: 04/10/25 10:36 Interval history: Reason for visit: Elevated troponin, Uncontrolled hypertension HPI: Mouna is a 74 year old female with known paroxysmal SVT, moderate non-obstructive coronary artery disease, hypertension, hyperlipidemia who presented with near syncope after getting out of hot shower. [place] warm, flushed, and her heart was racing. Was told to do Vagal maneuvers in the past, and she had tried to bear down to get her heart rate down. Had been on Metoprolol in the past, but had self-discontinued this. Sees Dr. Peralta at [place], was offered SVT ablation in the past, however, patient did not want to pursue it at that time. Blood pressure in the 200s upon presentation here. Troponins are 0.072, 0.066, 0.067. CXR no acute findings. CT Head no acute findings. EKGs with sinus rhythm with diffuse STTW abnormality. EKG unchanged compared to previous from February 2025. Date of service 04/10: Orthostatic vital signs negative yesterday. Gets occasional lightheadedness/dizziness with standing up. Tele stable. Review of Systems Review of Systems: All systems reviewed & are unremarkable except as noted in HPI and below (HPI) Exam Const: General: no acute distress HENMT: Mouth: Yes moist mucous membranes Eyes: General: appearance normal, both eyes and all related structures Sclera: sclerae normal Resp: Effort & Inspection: normal respiratory effort Cardio: Rate: regular rate Rhythm: regular rhythm Skin: General skin exam: normal color Neuro: Speech: normal speech Psych: Mental Status: mental status grossly normal Affect: normal affect Objective Data Vital Signs Vital Signs: Vital Signs - 24 hr 04/09/25 10:37 04/09/25 12:00 04/09/25 12:00 Temperature 36.8 C Pulse Rate 75 72 Respiratory Rate 20 Blood Pressure 169/73 H Pulse Oximetry 100 98 Oxygen Delivery Room Air 04/09/25 12:00 04/09/25 14:00 04/09/25 16:00 Temperature 36.7 C Pulse Rate 75 77 67 Respiratory Rate 20 Blood Pressure 144/64 H Pulse Oximetry 99 Oxygen Delivery 04/09/25 16:00 04/09/25 16:00 04/09/25 18:00 Temperature Pulse Rate 72 76 Respiratory Rate Blood Pressure Pulse Oximetry 99 Oxygen Delivery Room Air 04/09/25 20:00 04/09/25 20:00 04/09/25 20:00 Temperature 36.7 C Pulse Rate 69 73 Respiratory Rate 20 20 Blood Pressure 151/53 H Pulse Oximetry 98 98 Oxygen Delivery Room Air 04/09/25 22:00 04/10/25 00:00 04/10/25 00:00 Temperature 37.2 C Pulse Rate 64 64 Respiratory Rate 20 20 Blood Pressure 149/66 H Pulse Oximetry 98 100 Oxygen Delivery Room Air 04/10/25 00:00 04/10/25 02:00 04/10/25 04:00 Temperature Pulse Rate 64 60 Respiratory Rate 20 Blood Pressure Pulse Oximetry 100 Oxygen Delivery Room Air 04/10/25 04:00 04/10/25 04:00 04/10/25 06:00 Temperature 37.2 C Pulse Rate 62 64 70 Respiratory Rate 20 Blood Pressure 133/81 Pulse Oximetry 96 Oxygen Delivery 04/10/25 07:48 04/10/25 08:57 Temperature 36.8 C Pulse Rate 68 77 Respiratory Rate 16 Blood Pressure 140/60 Pulse Oximetry 98 Oxygen Delivery Intake/Output Intake/Output: Intake & Output 04/07/25 04/08/25 04/09/25 04/10/25 23:59 23:59 23:59 23:59 Intake Total 1000 2490 790 Output Total 3200 600 Balance 1000 -710 190 Meds/Results Medications: Active Medications Generic Name Dose Route Start Last Admin Trade Name Freq PRN Reason Stop Dose Admin Amlodipine Besylate 10 mg 04/08/25 16:00 04/10/25 08:57 Amlodipine Besylate 10 Mg Tablet PO 10 mg DAILY [facility] Administration Aspirin 81 mg 04/09/25 09:00 04/10/25 08:56 Aspirin 81 Mg Enteric Tablet PO 81 mg QAM [facility] Administration Aspirin 81 mg 04/09/25 09:00 04/10/25 08:57 Aspirin 81 Mg Enteric Tablet PO Not Given DAILY [facility] Atorvastatin Calcium 80 mg 04/09/25 18:00 04/09/25 17:41 Atorvastatin 40 Mg Tablet PO 80 mg QPM [facility] Administration Cyclobenzaprine HCl 5 mg 04/08/25 23:04 Cyclobenzaprine Hcl 5 Mg Tablet PO DAILY PRN muscle spasm Enoxaparin Sodium 40 mg 04/09/25 09:00 04/10/25 08:56 Enoxaparin 40 Mg/0.4 Ml Syringe SUB-Q 40 mg DAILY [facility] Administration Hydrochlorothiazide 12.5 mg 04/09/25 09:00 04/10/25 08:57 Hydrochlorothiazide 12.5 Mg Capsule PO 12.5 mg QAM [facility] Administration Labetalol HCl 20 mg 04/08/25 17:24 Labetalol Hcl Inj 100 Mg/20 Ml Vial IV PUSH ONCE PRN Hypertensive Emergency Lisinopril 20 mg 04/09/25 09:00 04/10/25 08:57 Lisinopril 20 Mg Tablet PO 20 mg QAM [facility] Administration Metoprolol Succinate 25 mg 04/09/25 09:00 04/10/25 08:57 Metoprolol Succinate Ext Rel 25 Mg Tabcr PO 25 mg QAM [facility] Administration Nitroglycerin 0.4 mg 04/08/25 21:03 Nitroglycerin Sl 0.4 Mg Tablet SUBLINGUAL Q5MIN PRN Chest Pain Ondansetron HCl 4 mg 04/08/25 17:24 Ondansetron Inj 4 Mg/2 Ml Vial IV PUSH Q4H PRN Nausea Radiology Results: ITS Impressions Head CT 04/08/25 13:16 IMPRESSION: No acute intracranial findings. Chest X-Ray 04/08/25 13:26 IMPRESSION: No acute cardiopulmonary pathology. Labs Labs: Laboratory Results - last 24 hr 04/09/25 04/10/25 03:47 03:51 WBC 9.8 RBC 5.19 Hgb 14.6 Hct 47.4 H MCV 91.3 MCH 28.1 MCHC 30.8 L RDW 11.9 Plt Count 310 MPV 9.8 Immature Gran % (Auto) 0.2 Neut % (Auto) 45.6 Lymph % (Auto) 44.2 [place] % (Auto) 6.7 Eos % (Auto) 2.6 Baso % (Auto) 0.7 Lymph # (Auto) 4.31 H [place] # (Auto) 0.7 H Eos # (Auto) 0.3 Baso # (Auto) 0.1 Abs Immat Gran (auto) 0.02 Absolute Neuts (auto) 4.5 Absolute Nucleated RBC 0.000 Nucleated RBC % 0.0 Sodium 138 Potassium 3.5 Chloride 103 Carbon Dioxide 29 Anion Gap 6 BUN 12 Creatinine 0.68 L Estim Creat Clear Calc 56 Estimated GFR > 60 Glucose 99 Calcium 9.3 Magnesium 2.1 Total Bilirubin 0.5 AST 28 ALT 22 Alkaline Phosphatase 73 Total Protein 7.2 Albumin 3.8 TSH 1.300
--- NOTE | 2025-04-10 10:53 | P.DS_ITS ---
DS: Admitting Diagnosis Discharge Date 04/10/2025 Admitting Diagnosis Elevated troponin DS: Discharge Diagnosis Discharge Diagnosis (1) Near syncope: Code(s): R55 - Syncope and collapse Status: Acute (2) SVT (supraventricular tachycardia): Code(s): I47.1 - Supraventricular tachycardia Status: Chronic (3) HTN (hypertension): Qualifiers: Hypertension type: primary hypertension Qualified Code(s): I10 - Essential (primary) hypertension Code(s): I10 - Essential (primary) hypertension Status: Chronic DS: Summary Hospital Course Reason for hospitalization: Near Syncope Hospital Course: 74 y/o F with PMH of paroxysmal SVT, myocardial infarction, and hypertension presents here with near syncope. The patient presents here from home via EMS for further evaluation of near syncope. The patient reports she had just gotten out of a hot shower when she began to feel warm, flushed, nauseated, diaphoretic, and had palpitations. She describes the palpitations as if her heart was racing. She previously has had episodes of paroxysmal SVT for which she can typically treat with vasovagal techniques such as bearing down. She attempted to bear down which she reports did improve her heart rate. She reports she previously has been on metoprolol for paroxysmal SVT, however she self discontinued the medication after she bel ieved it would not return. She has been off the medication for the past 7-8 months. She has previously been recommended an ablation but did not proceed as she was scared. She currently denies shortness of breath, diaphoresis, dizzy. She did report some intermittent left-sided chest pain. chest pain remains present and is mild, accompanied by mild nausea and a brief episode of palpitations. Initial VS at presentation: 98.1? F, HR 85, R 18, 215/88, and 98% on RA. ED workup showed: WBC 11.1, hemoglobin 15.1, normal coags, no significant electrolyte derangements, creatinine 0.55 and GFR >60. Head CT showed no acute intracranial findings. CXR showed no acute cardiopulmonary pathology. Initial EKG showed sinus rhythm, ST-T-wave abnormality in diffuse leads consider ischemia. Repeat EKG showed no significant changes. Status at Discharge Functional status at discharge: independent ambulation Overall status at discharge: patient is back to baseline Time Spent with Patient Time attestation: Total time spent providing and/or coordinating discharge services: 35 Exam Narrative: Justino SHIN. benign. no edema. Const: General: comfortable and no acute distress Other: , female, nontoxic appearance HENMT: Face/Nose/Sinus: Normal nares present Mouth: Yes moist mucous membranes Eyes: General: appearance normal, both eyes and all related structures Sclera: sclerae normal Pupils: Equal, round and reactive pupils present EOM: EOMs intact bilaterally Resp: Effort & Inspection: normal respiratory effort Auscultation: clear to auscultation bilaterally Cardio: Rate: regular rate Rhythm: regular rhythm Other: S1-S2 present without murmur, rub, ectopy GI: Other: Abdomen soft, nondistended, nontender. Normoactive bowel sounds in all quadrants. Skin: General skin exam: normal color and no rashes or lesions noted Wounds: no wounds Neuro: Cranial nerves: Yes Equal, round and reactive pupils present Speech: normal speech Motor exam (neuro): 5/5 motor strength present throughout Sensory Exam: normal sensation Other: A&O x4 Extrem: General: normal to inspection Psych: Mental Status: mental status grossly normal Affect: normal affect Other: Good insight and judgment, very pleasant DS: Data Data Completed and Pending Labs on day of discharge: Labs from last 24 hours 04/10/25 04/09/25 03:51 03:47 WBC 9.8 RBC 5.19 Hgb 14.6 Hct 47.4 H MCV 91.3 MCH 28.1 MCHC 30.8 L RDW 11.9 Plt Count 310 MPV 9.8 Immature Gran % (Auto) 0.2 Neut % (Auto) 45.6 Lymph % (Auto) 44.2 [place] % (Auto) 6.7 Eos % (Auto) 2.6 Baso % (Auto) 0.7 Lymph # (Auto) 4.31 H [place] # (Auto) 0.7 H Eos # (Auto) 0.3 Baso # (Auto) 0.1 Abs Immat Gran (auto) 0.02 Absolute Neuts (auto) 4.5 Absolute Nucleated RBC 0.000 Nucleated RBC % 0.0 Sodium 138 Potassium 3.5 Chloride 103 Carbon Dioxide 29 Anion Gap 6 BUN 12 Creatinine 0.68 L Estim Creat Clear Calc 56 Estimated GFR > 60 Glucose 99 Calcium 9.3 Magnesium 2.1 Total Bilirubin 0.5 AST 28 ALT 22 Alkaline Phosphatase 73 Total Protein 7.2 Albumin 3.8 TSH 1.300 Discharge Plan Discharge Attending physician on discharge: Hector Agarwal Consulting providers: Lanny Souza; Elio Schmidt Discharging Clinician: Elio Schmidt Anticipated Discharge Date/Time: 04/10/25 10:49 Patient Disposition: Home Activity: as tolerated Diet: as tolerated Discharge Instructions: Discharge disposition: Stable Take medications as prescribed Monitor blood pressures Take caution while standing, rising, or moving Change positions slowly taking a break between each position change If you standing feel dizzy sit back down and take a break Encouraged to continue with yearly vaccinations Return to the emergency department if he developed sudden shortness of breath, chest pain, nausea, vomiting, upset stomach or intractable diarrhea Return to the emergency department if you develop fever greater than 101.5 Follow-up with the primary care physician within 1-2 weeks. Follow up with your primary Imaging Science Professor as soon as possible. Thank you for choosing [facility] for your healthcare needs Patient Instructions: Antibiotic Form, Enoxaparin (By injection) Patient Language: Monegasque Stand Alone Forms: General Discharge Information Follow-up/Referrals: UNKNOWN,DOCTOR [Primary Care Provider] - Discharge Medications: Continued atorvastatin 80 mg tablet 80 mg PO QPM lisinopril-hydrochlorothiazide 20-12.5 mg tablet 1 tablet PO DAILY metoprolol succinate 25 mg Tablet Extended Release 24 Hr 25 mg PO DAILY cyclobenzaprine 5 mg tablet 5 mg PO DAILY PRN (Reason: muscle spasm) aspirin 81 mg tablet,delayed release (DR/EC) 81 mg PO DAILY amlodipine 10 mg tablet 10 mg PO DAILY Discontinued metoprolol succinate 25 mg tablet extended release 24 hr 25 mg PO DAILY Qty: 30 0RF Date of admission: 04/08/25 17:25 Primary Care Provider: UNKNOWN,DOCTOR Admitting Provider: Hector Agarwal Attending physician on admission: Hector Agarwal Condition: Stable Quality VTE Prophylaxis VTE prophylaxis: pharmacologic ordered
--- NOTE | 2025-04-10 13:48 | P.PNIM_ITS ---
Progress Note: A&P Assessment and Plan (1) Near syncope: Code(s): R55 - Syncope and collapse Status: Acute Assessment and Plan: * EKG, initial: Sinus rhythm, rate 80, ST-T-wave abnormality in diffuse leads consider ischemia. * EKG, repeat (1): Sinus rhythm, possible right atrial enlargement, ST-T-wave abnormality diffuse leads consider ischemia. When compared to prior EKG, no significant changes. * hx of pSVT on metoprolol, has been off this medication for the past XX restart metoprolol * troponin: 0.072 -> 0.066 -> 0.067 * Mag 2.1 * high suspicion for recurrent SVT, however continues to have mild left-sided chest pain. * Nitro PRN and ASA 81 daily. * telemetry monitoring * Cardiology signed off (2) SVT (supraventricular tachycardia): Code(s): I47.1 - Supraventricular tachycardia Status: Chronic Assessment and Plan: * Hx of pSVT * restarted metoprolol ER 25 mg daily * suspect patient had recurrent SVT and was able to Valsalva into normal sinus rhythm at home * telemetry monitoring - stable * Continue Metoprolol (3) HTN (hypertension): Qualifiers: Hypertension type: primary hypertension Qualified Code(s): I10 - Essential (primary) hypertension Code(s): I10 - Essential (primary) hypertension Status: Chronic Assessment and Plan: - chronic, currently 196/97. Arrived 215/88. - continue home medications: Amlodipine, lisinopril, hydrochlorothiazide - labetalol p.r.n. - monitor - 04/10: 166/63 Plan Diet: Heart healthy GI Prophylaxis: Not currently indicated DVT Prophylaxis: Lovenox SQ IV fluids: 1L bolus -> 125 mL/hour x1L Lines/Tubes: Peripheral IV Code Status: Full code Subjective Date/time seen: 04/10/25 13:48 Interval history: HPI: Mouna is a 74 year old female with known paroxysmal SVT, moderate non- obstructive coronary artery disease, hypertension, hyperlipidemia who presented with near syncope after getting out of hot shower. 04/10/2025 Pt sitting comfortably in bed at time of exam. Denies any chest pain, n/v, SOB, or abd pain at this time. Still endorses some dizziness and generalized weakness today, will benefit from further PT/OT. Orthostatic vital signs negative yesterday. Cardiology signed off. Will likely discharge tomorrow. Review of Systems Review of Systems: All systems reviewed & are unremarkable except as noted in HPI and below Exam Narrative: [place] SHIN benign. no edema. Const: Other: , female, nontoxic appearance Cardio: Other: S1-S2 present without murmur, rub, ectopy GI: Other: Abdomen soft, nondistended, nontender. Normoactive bowel sounds in all quadrants. Neuro: Other: A&O x4 Psych: Other: Good insight and judgment, very pleasant Objective Data Vital Signs Vital Signs: Vital Signs - 24 hr 04/09/25 14:00 04/09/25 16:00 04/09/25 16:00 Temperature 98.1 F Pulse Rate 77 67 72 Respiratory Rate 20 Blood Pressure 144/64 H Pulse Oximetry 99 Oxygen Delivery 04/09/25 16:00 04/09/25 18:00 04/09/25 20:00 Temperature 98.0 F Pulse Rate 76 69 Respiratory Rate 20 Blood Pressure 151/53 H Pulse Oximetry 99 98 Oxygen Delivery Room Air 04/09/25 20:00 04/09/25 20:00 04/09/25 22:00 Temperature Pulse Rate 73 64 Respiratory Rate 20 Blood Pressure Pulse Oximetry 98 Oxygen Delivery Room Air 04/10/25 00:00 04/10/25 00:00 04/10/25 00:00 Temperature 98.9 F Pulse Rate 64 64 Respiratory Rate 20 20 Blood Pressure 149/66 H Pulse Oximetry 98 100 Oxygen Delivery Room Air 04/10/25 02:00 04/10/25 04:00 04/10/25 04:00 Temperature Pulse Rate 60 62 Respiratory Rate 20 Blood Pressure Pulse Oximetry 100 Oxygen Delivery Room Air 04/10/25 04:00 04/10/25 06:00 04/10/25 07:48 Temperature 98.9 F 98.2 F Pulse Rate 64 70 68 Respiratory Rate 20 16 Blood Pressure 133/81 140/60 Pulse Oximetry 96 98 Oxygen Delivery 04/10/25 08:57 04/10/25 11:49 04/10/25 12:03 Temperature 97.9 F Pulse Rate 77 69 Respiratory Rate 18 Blood Pressure 166/63 H Pulse Oximetry 99 Oxygen Delivery Room Air Intake/Output Intake/Output: Intake & Output 04/07/25 04/08/25 04/09/25 04/10/25 23:59 23:59 23:59 23:59 Intake Total 1000 2490 1030 Output Total 3200 1000 Balance 1000 -710 30 Meds/Results Medications: Active Medications Generic Name Dose Route Start Last Admin Trade Name Freq PRN Reason Stop Dose Admin Amlodipine Besylate 10 mg 04/08/25 16:00 04/10/25 08:57 Amlodipine Besylate 10 Mg Tablet PO 10 mg DAILY [facility] Administration Aspirin 81 mg 04/09/25 09:00 04/10/25 08:56 Aspirin 81 Mg Enteric Tablet PO 81 mg QAM [facility] Administration Aspirin 81 mg 04/09/25 09:00 04/10/25 08:57 Aspirin 81 Mg Enteric Tablet PO Not Given DAILY [facility] Atorvastatin Calcium 80 mg 04/09/25 18:00 04/09/25 17:41 Atorvastatin 40 Mg Tablet PO 80 mg QPM [facility] Administration Cyclobenzaprine HCl 5 mg 04/08/25 23:04 Cyclobenzaprine Hcl 5 Mg Tablet PO DAILY PRN muscle spasm Enoxaparin Sodium 40 mg 04/09/25 09:00 04/10/25 08:56 Enoxaparin 40 Mg/0.4 Ml Syringe SUB-Q 40 mg DAILY [facility] Administration Hydrochlorothiazide 12.5 mg 04/09/25 09:00 04/10/25 08:57 Hydrochlorothiazide 12.5 Mg Capsule PO 12.5 mg QAM [facility] Administration Labetalol HCl 20 mg 04/08/25 17:24 Labetalol Hcl Inj 100 Mg/20 Ml Vial IV PUSH ONCE PRN Hypertensive Emergency Lisinopril 20 mg 04/09/25 09:00 04/10/25 08:57 Lisinopril 20 Mg Tablet PO 20 mg QAM [facility] Administration Metoprolol Succinate 25 mg 04/09/25 09:00 04/10/25 08:57 Metoprolol Succinate Ext Rel 25 Mg Tabcr PO 25 mg QAM [facility] Administration Nitroglycerin 0.4 mg 04/08/25 21:03 Nitroglycerin Sl 0.4 Mg Tablet SUBLINGUAL Q5MIN PRN Chest Pain Ondansetron HCl 4 mg 04/08/25 17:24 Ondansetron Inj 4 Mg/2 Ml Vial IV PUSH Q4H PRN Nausea Radiology Results: ITS Impressions Head CT 04/08/25 13:16 IMPRESSION: No acute intracranial findings. Chest X-Ray 04/08/25 13:26 IMPRESSION: No acute cardiopulmonary pathology. Labs Labs: Laboratory Results - last 24 hr 04/10/25 03:51 WBC 9.8 RBC 5.19 Hgb 14.6 Hct 47.4 H MCV 91.3 MCH 28.1 MCHC 30.8 L RDW 11.9 Plt Count 310 MPV 9.8 Immature Gran % (Auto) 0.2 Neut % (Auto) 45.6 Lymph % (Auto) 44.2 [place] % (Auto) 6.7 Eos % (Auto) 2.6 Baso % (Auto) 0.7 Lymph # (Auto) 4.31 H [place] # (Auto) 0.7 H Eos # (Auto) 0.3 Baso # (Auto) 0.1 Abs Immat Gran (auto) 0.02 Absolute Neuts (auto) 4.5 Absolute Nucleated RBC 0.000 Nucleated RBC % 0.0 Sodium 138 Potassium 3.5 Chloride 103 Carbon Dioxide 29 Anion Gap 6 BUN 12 Creatinine 0.68 L Estim Creat Clear Calc 56 Estimated GFR > 60 Glucose 99 Calcium 9.3 Magnesium 2.1 Total Bilirubin 0.5 AST 28 ALT 22 Alkaline Phosphatase 73 Total Protein 7.2 Albumin 3.8 Quality VTE Prophylaxis VTE prophylaxis: pharmacologic ordered
--- NOTE | 2025-04-10 17:04 | PC.NURSE ---
This patient, Mouna Zapien, was received from IMU on 04/10/25 at 1704. Patient/family oriented to unit policies and routines
[2025-04-10] MEDS: ATORVASTATIN 40 MG TABLET 80 MG PO (17:35)
--- NOTE | 2025-04-10 17:46 | PC.NURSE ---
This patient, Mouna Zapien, was transferred to [facility] on 04/10/25 at 1646. Personal belongings sent with patient. Report given to DIVINE Wilson. Appropriate documentation sent with patient.
[2025-04-11 05:17] VITALS: BP 138/58; PULSE 62; RESP 20; TEMP 36.4; O2SAT 97
[2025-04-11 05:28] LABS: Basophils Absolute Auto 0.1 K/mm3 (0.0-0.1); Basophils Percent Auto 0.9 % (0.2-1.2); Eosinophils Absolute Auto 0.2 K/mm3 (0-0.3); Eosinophils Percent Auto 1.9 % (0-4.4); Hematocrit 46.5 % (37.0-47.0); Hemoglobin 14.2 g/dL (12.0-15.0); Immature Granulocyte Absolute 0.03 K/mm3 (0.00-0.031); Immature Granulocyte Percent A 0.3 % (0-0.5); Lymphocytes Absolute Auto 3.39 K/mm3 (0.9-3.2); Lymphocytes Percent Auto 35.2 % (18.3-44.2); Mean Corpuscular HGB Conc 30.5 g/dl (32-36); Mean Corpuscular Hemoglobin 27.8 pg (26-34); Mean Platelet Volume 10.1 fl (7.4-10.4); Monocytes Absolute Auto 0.7 K/mm3 (0.1-0.6); Neutrophils Absolute Auto 5.3 K/mm3 (1.3-6.7); Neutrophils Percent Auto 54.7 % (45.5-73.1); Platelet Count Result 312 k/mm3 (150-375); Red Blood Count 5.11 M/mm3 (4.2-5.4); Red Cell Distribution Width 11.9 % (11.5-14.5); White Blood Count 9.6 K/mm3 (4.5-10.0)
[2025-04-11 05:47] LABS: Alanine Aminotransferase 23 U/L (6-35); Albumin Level 3.9 g/dL (3.5-5.1); Alkaline Phosphatase 74 U/L (38-126); Anion Gap 6 mmol/L (4-12); Aspartate Amino Transferase 33 U/L (14-36); Bilirubin,Total 0.4 mg/dL (0.2-1.3); Blood Urea Nitrogen 12 mg/dL (7-17); Calcium 9.6 mg/dL (8.4-10.2); Carbon Dioxide 28 mmol/L (22-30); Chloride 103 mmol/L (98-107); Estimated CRCL calculation 59 ml/min; Estimated Glomerular Filt Rate > 60; Glucose 96 mg/dL (65-110); Magnesium 2.2 mg/dL (1.6-2.3); Potassium 3.7 mmol/L (3.4-5.0); Sodium 137 mmol/L (137-145); Total Protein 7.2 g/dL (6.3-8.2)
[2025-04-11 09:20] VITALS: BP 151/53; PULSE 70
[2025-04-11] MEDS: amLODIPine BESYLATE 10 MG TABLET PO (09:21)
[2025-04-11] MEDS: hydroCHLOROthiazide 12.5 MG CAPSULE PO (09:22)
[2025-04-11] MEDS: lisinopriL 20 MG TABLET PO (09:22)
[2025-04-11] MEDS: ASPIRIN 81 MG ENTERIC TABLET PO (09:22)
[2025-04-11 09:23] VITALS: PULSE 70
[2025-04-11] MEDS: METOPROLOL SUCCINATE EXT REL 25 MG TABCR PO (09:23)
[2025-04-11] MEDS: ENOXAPARIN 40 MG/0.4 ML SYRINGE SUB-Q (09:24)
--- NOTE | 2025-04-11 10:00 | P.DS_ITS ---
DS: Admitting Diagnosis Discharge Date 04/11/2025 Admitting Diagnosis Chest pain, near syncope DS: Discharge Diagnosis Discharge Diagnosis (1) Near syncope: Code(s): R55 - Syncope and collapse Status: Acute (2) SVT (supraventricular tachycardia): Code(s): I47.1 - Supraventricular tachycardia Status: Chronic (3) HTN (hypertension): Qualifiers: Hypertension type: primary hypertension Qualified Code(s): I10 - Essential (primary) hypertension Code(s): I10 - Essential (primary) hypertension Status: Chronic DS: Summary Hospital Course Reason for hospitalization: Near Syncope Hospital Course: 74 y/o F with PMH of paroxysmal SVT, myocardial infarction, and hypertension presents here with near syncope. The patient presents here from home via EMS for further evaluation of near syncope. The patient reports she had just gotten out of a hot shower when she began to feel warm, flushed, nauseated, diaphoretic, and had palpitations. She describes the palpitations as if her heart was racing. She previously has had episodes of paroxysmal SVT for which she can typically treat with vasovagal techniques such as bearing down. She attempted to bear down which she reports did improve her heart rate. She reports she previously has been on metoprolol for paroxysmal SVT, however she self discontinued the medication after she believed it would not return. She has been off the medication for the past 7-8 months. She has previously been recommended an ablation but did not proceed as she was scared. She currently denies shortness of breath, diaphoresis, dizzy. She did report some intermittent left-sided chest pain. chest pain remains present and is mild, accompanied by mild nausea and a brief episode of palpitations. Initial VS at presentation: 98.1? F, HR 85, R 18, 215/88, and 98% on RA. ED workup showed: WBC 11.1, hemoglobin 15.1, normal coags, no significant electrolyte derangements, creatinine 0.55 and GFR >60. Head CT showed no acute intracranial findings. CXR showed no acute cardiopulmonary pathology. Initial EKG showed sinus rhythm, ST-T-wave abnormality in diffuse leads consider ischemia. Repeat EKG showed no significant changes. Cardiology consult regarding elevated troponins. Echocardiogram ordered, showed LV ejection fraction of over 70%. Patient does have orthostasis symptoms but w as found to be orthostatic negative on 04/09. Recommended patient continue with adequate oral fluid intake. Cardiology agreed that chest pain is atypical but reproducible on examination and consistent with musculoskeletal etiology. Agree with restarting patient on metoprolol and stressing the importance of remaining on this medication for PSVT. He also recommended continuing ASA statin, amlodi pine and lisinopril-HCTZ, but has otherwise cleared for discharge from cardiac standpoint. They recommended the patient follow-up with her primary redevelopment specialist upon discharge. Patient's blood work and vital signs otherwise unremarkable and stable this time. On 04/11 patient still has some underlying chest pain, but once again this is reproducible upon palpation of the chest and more consistent with musculoskeletal etiology. Patient is in agreement with discharge and will follow-up with her PCP and redevelopment specialist at [facility] upon discharge. Status at Discharge Functional status at discharge: independent ambulation Overall status at discharge: patient is progressing back to baseline Time Spent with Patient Time attestation: Total time spent providing and/or coordinating discharge services: 42 Exam Narrative: AA, F. benign. no edema. Const: Other: , female, nontoxic appearance Cardio: Other: S1-S2 present without murmur, rub, ectopy GI: Other: Abdomen soft, nondistended, nontender. Normoactive bowel sounds in all quadrants. Neuro: Other: A&O x4 Psych: Other: Good insight and judgment, very pleasant DS: Data Data Completed and Pending Labs on day of discharge: Labs from last 24 hours 04/11/25 04:22 WBC 9.6 RBC 5.11 Hgb 14.2 Hct 46.5 MCV 91.0 MCH 27.8 MCHC 30.5 L RDW 11.9 Plt Count 312 MPV 10.1 Immature Gran % (Auto) 0.3 Neut % (Auto) 54.7 Lymph % (Auto) 35.2 [place] % (Auto) 7.0 Eos % (Auto) 1.9 Baso % (Auto) 0.9 Lymph # (Auto) 3.39 H [place] # (Auto) 0.7 H Eos # (Auto) 0.2 Baso # (Auto) 0.1 Abs Immat Gran (auto) 0.03 Absolute Neuts (auto) 5.3 Absolute Nucleated RBC 0.000 Nucleated RBC % 0.0 Sodium 137 Potassium 3.7 Chloride 103 Carbon Dioxide 28 Anion Gap 6 BUN 12 Creatinine 0.64 L Estim Creat Clear Calc 59 Estimated GFR > 60 Glucose 96 Calcium 9.6 Magnesium 2.2 Total Bilirubin 0.4 AST 33 ALT 23 Alkaline Phosphatase 74 Total Protein 7.2 Albumin 3.9 Discharge Plan Discharge Attending physician on discharge: Hector Agarwal Consulting providers: Elio Schmidt; Lanny Souza Discharging Clinician: Elio Schmidt Anticipated Discharge Date/Time: 04/11/25 09:59 Patient Disposition: Home with Home Health Service Activity: as tolerated Diet: as tolerated Discharge Instructions: Discharge disposition: Stable Take medications as prescribed Monitor blood pressures Take caution while standing, rising, or moving Change positions slowly taking a break between each position change If you standing feel dizzy sit back down and take a break Encouraged to continue with yearly vaccinations Return to the emergency department if he developed sudden shortness of breath, chest pain, nausea, vomiting, upset stomach or intractable diarrhea Return to the emergency department if you develop fever greater than 101.5 Follow-up with the primary care physician within 1-2 weeks. Follow up with your primary [facility] as soon as possible. Thank you for choosing [facility] for your healthcare needs. Care Coordination: Patient to have [facility] for PT/OT eval and treat, and senior care. Their phone number is [phone] if you have any q uestions; they will contact you to schedule their first visit. Patient Instructions: Antibiotic Form, Enoxaparin (By injection) Patient Language: Wallisian Stand Alone Forms: General Discharge Information Follow-up/Referrals: UNKNOWN,DOCTOR [Non-Staff] - Discharge Medications: Continued atorvastatin 80 mg tablet 80 mg PO QPM lisinopril-hydrochlorothiazide 20-12.5 mg tablet 1 tablet PO DAILY metoprolol succinate 25 mg Tablet Extended Release 24 Hr 25 mg PO DAILY cyclobenzaprine 5 mg tablet 5 mg PO DAILY PRN (Reason: muscle spasm) aspirin 81 mg tablet,delayed release (DR/EC) 81 mg PO DAILY amlodipine 10 mg tablet 10 mg PO DAILY Discontinued metoprolol succinate 25 mg tablet extended release 24 hr 25 mg PO DAILY Qty: 30 0RF Date of admission: 04/08/25 17:25 Primary Care Provider: PHYSICIAN NOT ON STAFF,NONSTAFF Admitting Provider: Hector Agarwal Attending physician on admission: Hector Agarwal Condition: Stable Quality VTE Prophylaxis VTE prophylaxis: pharmacologic ordered
== END 2025-04-11 11:10 | disposition home health service (06) ==
LOC: ANHED 13:24 → ANHIMU 18:26 → ANH2MED 04-11 09:59 → ANHIMU 04-12 09:20
PROVIDERS: Emergency Medicine; Internal Medicine; Nurse Practitioner Family; Student in an Organized Health Care Education/Training Program; Admitting Provider Internal Medicine; Emergency Provider Student in an Organized Health Care Education/Training Program; Visit Provider Physician Assistant
DX: R55 Syncope and collapse (principal); I47.19 Other supraventricular tachycardia; I10 Essential (primary) hypertension; R79.89 Other specified abnormal findings of blood chemistry; I25.10 Atherosclerotic heart disease of native coronary artery without angina pectoris; E78.5 Hyperlipidemia, unspecified; Z79.82 Long term (current) use of aspirin; Z79.899 Other long term (current) drug therapy
CPT/HCPCS: 36415; 70450; 71046; 80053; 83690; 83735; 84443; 84484; 85025; 85610; 85730; 93005; 93306; 96361; 96372; 96374; 96375; 96376; 97161; 97165; 99285; A9270; G0378; J1650; J7120; Q9957